=== PATIENT | male | born 1965 | race African-American/Black ===

== ENCOUNTER → 2018-01-22 12:56 | Outpatient (CLI) | payer MEDICAID ==
[2014-09-09 13:19] VITALS: BMI 26.2
[~2018-01-22 12:56] MED LIST: ALEVE220 MG PO; BETAPACE 80 MG80 MG PO; CARDIZEM CD180 MG PO; CELEXA20 MG PO; FERROUS SULFAT325 MG PO; HYDROCHLOROTHIA25 MG PO; K-DUR20 MEQ PO; LISINOPRIL-HCTZ1 T11 PO; NEURONTIN600 MG PO; PRILOSEC20 MG PO; TEGRETOL200 MG PO; TYLENOL W/CODEI1 TAB PO; XARELTO15 MG PO; ZOFRAN4 MG PO
== END | disposition home or self-care (01) ==
LOC: D.MRI 12:56
DX: M25.561 Pain in right knee (principal)

== ENCOUNTER 2018-03-14 14:29 | Inpatient (IN) | payer MEDICAID ==
[~2018-03-14] VITALS: Ht 188 cm; Wt 92.1 kg
--- NOTE | ~2018-03-14 | EC ---
PATIENT:BILL MCKAY DATE OF SERVICE: 03/14/18 SEX: M MEDICAL RECORD: [id number] DATE OF : 63 LOCATION:D.M2 D.211 AGE OF PATIENT: 52 ADMISSION DATE: 03/15/18 REFERRING PHYSICIAN: INTERPRETING PHYSICIAN: JARROD KEMP MD ECHOCARDIOGRAM REPORT ECHO CHARGES 4 ECHO COMPLETE Date: 03/15 CLINICAL DIAGNOSIS: TACHYARRHYTHMIA ECHOCARDIOGRAPHIC MEASUREMENTS (adult normal given) AC root (d.<3.7cm) 3.8 cm LV Septum d (<1.2 cm> 1.2 cm Valve Excursion 2.3 cm LV Septum (systole) 1.4 cm Left Atria (s.<4.0cm> 4.1 cm LVPW d(<1.2cm) 1.4 cm RV (d.<2.3cm) 3.7 cm LVPW (sytole) 1.5 cm LV diastole(<5.6CM) 4.3 cm MV E-F(>70mm/sec) cm LV systole 3.3 cm LVOT Diameter 2.0 cm MV exc.(>10mm) 1.8 cm Est.ejection fraction (50-75%) % DOPPLER: LVIT cm/sec A 54.0 cm/sec E 108 cm/sec LA cm/sec RVSP 34 mmHg LVOT 99 cm/sec AOP1/2T m/s Asc. Ao 143 cm/sec RVOT 64 cm/sec RA cm/sec PA 117 cm/sec AV Gradient Peak 8.19 mmHg AV Mean 4.34 mmHg AV Area 2.3 cm MV Gradient Peak 6.81 mmHg MV Mean 2.97 mmHg MV Area cm COMMENTS: Hand Sprayer: 2 CATHY ALM [employer] Solar [employer] Designer: 1 Dr. Kemp TAPE# PACS Pericardial Effusion N DATE OF SERVICE: Echocardiogram FINDINGS: 1. Left ventricular chamber size is within normal limits. Left ventricular systolic function is normal. Overall ejection fraction estimated at 60%. 2. Left atrium is enlarged at 4.1 cm. Right atrium and right ventricular sizes are as well mildly dilated. 3. Valvular structures have normal structure and motion. ECHOCARDIOGRAM REPORT [id number] BILL MCKAY 4. Doppler interrogation reveals fdis-lz-salybusc mitral regurgitation, samh-ie-fnhfvrqw tricuspid regurgitation, no other valvular insufficiency or stenosis. Pulmonary systolic pressure is estimated at 34 mmHg. 5. No evidence of pericardial effusion or left ventricular thrombus. TRANSINT:[id number] Voice Confirmation ID: [id number] DOCUMENT ID: [id number] JARROD KEMP MD at 0847 CC: [id number] DICTATION DATE: 03/15/18 1246 BARKER PEELER: 03/15/18 1354 ADM IN [facility] [address] [place] [address]
--- NOTE | ~2018-03-14 | CN ---
PATIENT NAME:BILL MCKAY MEDICAL RECORD: [id number] : 63 LOCATION:DJuan D.2119 ADMIT DATE: 03/15/18 ACCOUNT: [id number] CONSULTING PHYSICIAN: ETHEL SHETH MD REFERRING PHYSICIAN: KENNY LOPZE MD DATE OF CONSULTATION: 03/16/2018 HISTORY OF PRESENT ILLNESS: A 52-year-old gentleman with no known cardiovascular history, was actually admitted ____ knee replacement, found to have atrial flutter with a 2:1 block initially, currently in variable block, rate is controlled. He is asymptomatic from this standpoint. Started today on anticoagulation. Difficult to get a discussion concerning effort tolerance given the severe neuropathy, underlying knee issues. We are asked to see her concerning her cardiovascular status. PAST MEDICAL HISTORY: Otherwise includes, 1. History of peripheral neuropathy. 2. Osteoarthritis. 3. Hypertension. MEDICATIONS: Include omeprazole 40 b.i.d., Naprosyn 200 q.12, Neurontin 600 mg t.i.d., lisinopril 20/12.5 every day. ALLERGIES: FISH PRODUCTS. SOCIAL HISTORY: Drinks at least 3 quarts of beer a day. Smokes a little bit less than a pack a day. He does take care of all of his ADLs. No exercise program. REVIEW OF SYSTEMS: The patient reports easy bruising but reports no swollen glands. The patient reports no fever, no night sweats, no significant weight gain, no significant weight loss. No significant exercise tolerance. The patient reports no dry eyes, no irritation, no vision change. Patient reports no difficulty hearing and no ear pain. Patient reports no frequent nose bleeds or nose and sinus problems. Patient reports on arm pain on exertion. No shortness of breath while lying down. No history of heart murmur. Patient reports no cough, no wheezing or coughing up blood. Patient reports no abdominal pain, no vomiting. Normal appetite. No diarrhea and not vomiting blood. No nausea and no constipation. Patient reports no incontinence. No difficulty urinating. No hematuria. No increased frequency. Patient reports no muscle aches. No weakness, no arthralgias, no back pain. No swelling of the extremities. Patient reports no abnormal mole, no jaundice, no rashes. Reports no loss of consciousness. No weakness and no numbness. No seizures, dizziness, or headaches. The patient reports no depression, no sleep disturbance, feeling safe in a relationship and no alcohol abuse. Patient reports on fatigue. Reports no runny nose or sinus pressure. No itching, no hives, and no frequent sneezing. PHYSICAL EXAMINATION: GENERAL: Pleasant gentleman in no acute distress. VITAL SIGNS: Blood pressure 143/73, pulse 81 and regular. HEENT: Normocephalic, atraumatic. NECK: No bruits noted. HEART: Irregular, rate controlled, II/ systolic ejection murmur. LUNGS: Good air excursion. CONSULT REPORT [id number] BILL MCKAY ABDOMEN: Soft, nontender. EXTREMITIES: Pulses 2+. There is no edema. IMPRESSION: Atrial flutter, unknown duration. We will switch IV to p.o. Cardizem. Add sotalol ____ atrial stabilization. Agree with Xarelto as you are doing. Might consider cardioversion in 3-4 weeks. She should be ready for surgery once tolerating p.o. medications in 3-4 weeks. TRANSINT:[id number] Voice Confirmation ID: [id number] DOCUMENT ID: [id number] ETHEL SHETH MD at 0826 CC: [id number] DICTATION DATE: 03/16/18 1026 MAIL RIDER: 03/16/18 1343 DIS IN 03/17/18 [facility] [address] [place] [address]
[~2018-03-14 14:29] MED LIST changes: -BETAPACE 80 MG80 MG PO; -CARDIZEM CD180 MG PO; -K-DUR20 MEQ PO; -XARELTO15 MG PO
[2018-03-14 16:19] LABS: BASOPHILS 0.3 % (0-2); HEMATOCRIT 35.3 % (42.0-54.0); HEMOGLOBIN 12.7 g/dL (13.5-17.5); IMMATURE GRANULOCYTES 0.2 % (0-5); LYMPHOCYTES 23.7 % (15-50); MCH 38.8 pg (26.0-34.0); MEAN PLATELET VOLUME 10.1 fL (7.4-10.4); MONOCYTES 12.5 % (2-11); NEUTROPHILS 62.3 % (40-80); PLATELET COUNT 125 10x3/uL (130-400); RBC 3.27 10x6/uL (4.20-6.10); RDW 14.9 % (11.5-14.5)
[2018-03-14 16:34] LABS: APTT 28.7 SECONDS (22.8-39.4); INR 1.02 (0.85-1.17)
[2018-03-14 16:35] LABS: D-DIMER-QUANTITATIVE 0.69 ug/mLFEU (0.20-0.54)
[2018-03-14 16:44] LABS: ALBUMIN 4.1 g/dL (3.4-5.0); ALKALINE PHOSPHATASE 165 U/L (46-116); ALT (SGPT) 135 U/L (10-68); BILIRUBIN - TOTAL 2.09 mg/dL (0.2-1.3); CALC OSMOLALITY 275 mosm/kg (275-300); CARBON DIOXIDE 25.7 mmol/L (21.0-32.0); CHLORIDE - SERUM 102 mmol/L (98-107); CREATININE - SERUM 1.2 mg/dL (0.6-1.3); GLUCOSE 79 mg/dL (74-106); POTASSIUM - SERUM 5.2 mmol/L (3.5-5.1); PROTEIN - SERUM 8.5 g/dL (6.4-8.2); SODIUM 139 mmol/L (136-145); UREA NITROGEN 9 mg/dL (7-18); eGFR NON AFRICAN AMERICAN 67 mL/min (90-120)
[2018-03-14 17:06] LABS: CKMB 1.5 U/L (0.0-3.6); CREATINE KINASE 206 UL (21-232)
[2018-03-14 17:07] LABS: TROPONIN-I < 0.017 ng/mL (0.000-0.060)
[2018-03-14 17:46] LABS: APPEARANCE CLEAR (CLEAR); BILIRUBIN NEGATIVE (NEGATIVE); COLOR DK YELLOW (YELLOW); GLUCOSE NEGATIVE (NEGATIVE); KETONE NEGATIVE (NEGATIVE); NITRITE NEGATIVE (NEGATIVE); PROTEIN TRACE mg/dL (NEGATIVE); SPECIFIC GRAVITY 1.015 (1.005-1.020); UROBILINOGEN NORMAL (NORMAL)
[2018-03-14 17:53] LABS: UDS - AMPHET NEGATIVE QUAL (NEGATIVE); UDS - BARB NEGATIVE QUAL (NEGATIVE); UDS - BENZO NEGATIVE QUAL (NEGATIVE); UDS - COCAINE NEGATIVE QUAL (NEGATIVE); UDS - OPIATE NEGATIVE QUAL (NEGATIVE); UDS - PCP NEGATIVE QUAL (NEGATIVE); UDS - THC NEGATIVE QUAL (NEGATIVE)
[2018-03-14 19:49] LABS: CKMB 1.3 U/L (0.0-3.6); CREATINE KINASE 169 UL (21-232); TROPONIN-I < 0.017 ng/mL (0.000-0.060)
[2018-03-14] MEDS ORDERED: K-DUR20 MEQ PO (22:47)
[2018-03-14 23:13] VITALS: BP 139/87; Ht 188 cm; Wt 92.1 kg
[2018-03-15 00:51] VITALS: BP 133/81
[2018-03-15 01:40] LABS: CKMB 1.3 U/L (0.0-3.6); CREATINE KINASE 159 UL (21-232); TROPONIN-I < 0.017 ng/mL (0.000-0.060)
[2018-03-15 04:53] VITALS: BP 92/59; BP 92/89
[2018-03-15 06:22] LABS: BASOPHILS 0.6 % (0-2); EOSINOPHILS 2.1 % (0-7); HEMATOCRIT 30.9 % (42.0-54.0); IMMATURE GRANULOCYTES 0.2 % (0-5); LYMPHOCYTES 29.3 % (15-50); MCH 38.3 pg (26.0-34.0); MCHC 35.6 g/dL (31.0-37.0); MCV 107.7 fL (80.0-100.0); MEAN PLATELET VOLUME 9.5 fL (7.4-10.4); NEUTROPHILS 55.8 % (40-80); PLATELET COUNT 107 10x3/uL (130-400); RBC 2.87 10x6/uL (4.20-6.10); RDW 14.8 % (11.5-14.5); WBC 4.8 10x3/uL (4.8-10.8)
[2018-03-15 06:56] LABS: ALBUMIN 3.2 g/dL (3.4-5.0); ALKALINE PHOSPHATASE 122 U/L (46-116); BILIRUBIN - TOTAL 2.09 mg/dL (0.2-1.3); CALC OSMOLALITY 276 mosm/kg (275-300); CALCIUM 8.8 mg/dL (8.5-10.1); CARBON DIOXIDE 25.9 mmol/L (21.0-32.0); CHLORIDE - SERUM 103 mmol/L (98-107); CKMB 0.6 U/L (0.0-3.6); CREATINE KINASE 144 UL (21-232); CREATININE - SERUM 1.1 mg/dL (0.6-1.3); GLUCOSE 104 mg/dL (74-106); PROTEIN - SERUM 6.8 g/dL (6.4-8.2); SODIUM 139 mmol/L (136-145); T4 THYROXIN - FREE 1.04 ng/dL (0.76-1.46); THYROID STIMULATING HORMONE 2.62 uIU/mL (0.36-3.74); UREA NITROGEN 11 mg/dL (7-18); eGFR NON AFRICAN AMERICAN 74 mL/min (90-120)
[2018-03-15 07:01] LABS: ALT (SGPT) 92 U/L (10-68); POTASSIUM - SERUM 4.1 mmol/L (3.5-5.1); TROPONIN-I < 0.017 ng/mL (0.000-0.060)
[2018-03-15 08:50] VITALS: BP 145/85
[2018-03-15 12:03] VITALS: BP 110/65
[2018-03-15 16:56] VITALS: BP 118/85
[2018-03-15 20:17] VITALS: BP 125/85
[2018-03-16 00:57] VITALS: BP 125/75
[2018-03-16 04:28] VITALS: BP 113/77
[2018-03-16 09:01] VITALS: BP 142/73
[2018-03-16 09:05] LABS: T4 THYROXIN - FREE 0.93 ng/dL (0.76-1.46); THYROID STIMULATING HORMONE 2.95 uIU/mL (0.36-3.74)
[2018-03-16 13:30] VITALS: BP 115/76
[2018-03-16 20:33] VITALS: BP 120/87
[2018-03-17 01:35] VITALS: BP 134/87
[2018-03-17 05:50] VITALS: BP 111/66
[2018-03-17 08:38] VITALS: BP 130/70
[2018-03-17 11:21] VITALS: BP 156/96
[2018-03-17] MEDS ORDERED: BETAPACE 80 MG80 MG PO (11:57)
[2018-03-17] MEDS ORDERED: CARDIZEM CD180 MG PO (11:57)
[2018-03-17] MEDS ORDERED: XARELTO15 MG PO (11:57)
== END 2018-03-17 13:05 | disposition home or self-care (01) | DRG 310 ==
LOC: D.ER 14:29 → D.M2 18:32 → D.EDHOLD 18:32 → OBSVTIME 18:32 → D.M2 18:43
PROVIDERS: Family Medicine
DX: I48.92 Unspecified atrial flutter (principal); R00.0 Tachycardia, unspecified; I48.2 Chronic atrial fibrillation; Z79.01 Long term (current) use of anticoagulants; M19.90 Unspecified osteoarthritis, unspecified site; I10 Essential (primary) hypertension; F10.20 Alcohol dependence, uncomplicated; I34.0 Nonrheumatic mitral (valve) insufficiency; Z72.0 Tobacco use

== ENCOUNTER 2018-05-31 06:45 | Day surgery (SDC) | payer MEDICAID ==
[2018-05-30 14:55] LABS: HEMOGLOBIN 13.5 g/dL (13.5-17.5); MCH 37.8 pg (26.0-34.0); MCHC 36.5 g/dL (31.0-37.0); MCV 103.6 fL (80.0-100.0); MEAN PLATELET VOLUME 10.1 fL (7.4-10.4); RBC 3.57 10x6/uL (4.20-6.10); RDW 13.6 % (11.5-14.5); WBC 4.7 10x3/uL (4.8-10.8)
[2018-05-30 14:57] LABS: PLATELET COUNT 80 10x3/uL (130-400)
[2018-05-30 15:14] LABS: CALC OSMOLALITY 276 mosm/kg (275-300); CALCIUM 8.9 mg/dL (8.5-10.1); CARBON DIOXIDE 21.6 mmol/L (21.0-32.0); CHLORIDE - SERUM 104 mmol/L (98-107); GLUCOSE 108 mg/dL (74-106); POTASSIUM - SERUM 3.6 mmol/L (3.5-5.1); SODIUM 140 mmol/L (136-145); UREA NITROGEN 5 mg/dL (7-18); eGFR NON AFRICAN AMERICAN 83 mL/min (90-120)
[2018-05-30 15:28] LABS: PLATELET ESTIMATE DECREASED
[~2018-05-31] VITALS: Ht 188 cm; Wt 88.9 kg
--- NOTE | ~2018-05-31 | OP ---
PATIENT NAME: BILL MCKAY MEDICAL RECORD: [id number] :63 LOCATION:ANA ROSA ADMISSION DATE: SURGEON: LOIDA SAXENA MD DATE OF OPERATION: 05/31/2018 PREOPERATIVE DIAGNOSIS: Patellofemoral syndrome. POSTOPERATIVE DIAGNOSIS: Patellofemoral syndrome. PROCEDURE: Arthroscopic lateral release of the right knee. SURGEON: Loida Saxena MD ANESTHESIA: General. INTRAOPERATIVE COMPLICATIONS: None. 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 DESCRIPTION OF PROCEDURE IN DETAIL: After obtaining the appropriate preoperative orthopedic surgery consent as well as anesthetic consultation, evaluation and clearance, the patient was brought to the operating room and placed on the operating table in supine position. After general laryngeal mask airway was administered, tourniquet was placed on the proximal aspect right lower extremity. Right lower extremity was then prepped and draped in routine sterile fashion. The leg was elevated and exsanguinated, tourniquet inflated to 250 mmHg. Routine inferolateral portal was established followed by superomedial and inferomedial portal. Diagnostic arthroscopy showed the patient to have the chondromalacia as described above, worrisome is the trochlear chondromalacia as well as the lateral facet chondromalacia. The arthroscopy was then established from the medial portal for direct visualization of the lateral retinaculum. Lateral retinaculum was then released from the inferior aspect of the vastus lateralis to the inferolateral portal. Small skin breach was encountered. Having completed the complete lateral release, all portals were closed in routine interrupted fashion using 4-0 Prolene with the exception of the small skin bridge laterally. This was closed with a ntwtww-yw-gnwwd deep 4-0 Prolene after a #1 Vicryl closure. Knee was insufflated with 30 cc of 0.25% Marcaine with epinephrine and 80 mg of Depo-Medrol. Arthroscopy portals were closed in routine interrupted fashion. Sterile dressings were applied. The patient was awakened and taken to the recovery room in stable condition. All final needle and sponge counts were correct. TRANSINT:[id number] Voice Confirmation ID: [id number] DOCUMENT ID: [id number] LOIDA SAXENA MD at 0939 CC: [id number] DICTATION DATE: 06/06/18 0823 SENIOR WEB DESIGNER: 06/06/18 1052 [facility] [place] 05/31/18 [id number] [place] [address]
[~2018-05-31 06:45] MED LIST changes: +BETAPACE 80 MG80 MG PO; +CARDIZEM CD180 MG PO; +K-DUR20 MEQ PO; +XARELTO15 MG PO
[2018-05-31] MEDS ORDERED: CARTIA XT180 MG PO (07:05)
[2018-05-31 07:20] VITALS: BP 130/77; Ht 188 cm; Wt 88.9 kg
[2018-05-31] MEDS ORDERED: HYDROCODONE-APA1 TAB PO (08:36)
== END 2018-05-31 11:00 | disposition home or self-care (01) ==
LOC: D.OPS 06:45 → D.PAN 08:45 → D.OPS 09:45 → D.PAN 09:45 → D.OPS 11:00
PROVIDERS: Anesthesiology
DX: M22.2X1 Patellofemoral disorders, right knee (principal); M94.261 Chondromalacia, right knee; Z01.812 Encounter for preprocedural laboratory examination

== ENCOUNTER → 2018-11-23 13:56 | Outpatient (CLI) | payer OTHER ==
[2018-05-31 07:20] VITALS: BMI 25.2
[~2018-11-23 13:56] MED LIST changes: +CARTIA XT180 MG PO; +HYDROCODONE-APA1 TAB PO
== END | disposition home or self-care (01) ==
LOC: D.RAD 13:56
DX: Z02.71 Encounter for disability determination (principal)

== ENCOUNTER 2019-08-02 22:28 | Emergency (ER) | payer MEDICAID ==
[~2019-08-02] VITALS: Ht 188 cm; Wt 113.4 kg
[2019-08-02 22:29] VITALS: Ht 188 cm; Wt 113.4 kg
[2019-08-02 22:45] LABS: BASOPHILS 0.1 % (0-2); HEMATOCRIT 35.2 % (42.0-54.0); HEMOGLOBIN 12.5 g/dL (13.5-17.5); IMMATURE GRANULOCYTES 0.3 % (0-5); MCH 37.8 pg (26.0-34.0); MCHC 35.5 g/dL (31.0-37.0); MCV 106.3 fL (80.0-100.0); MEAN PLATELET VOLUME 9.9 fL (7.4-10.4); MONOCYTES 7.4 % (2-11); NEUTROPHILS 76.2 % (40-80); RBC 3.31 10x6/uL (4.20-6.10); RDW 13.5 % (11.5-14.5); WBC 14.7 10x3/uL (4.8-10.8)
[2019-08-02 22:51] LABS: PLATELET COUNT 133 10x3/uL (130-400)
[2019-08-02 22:57] LABS: INR 1.04 (0.85-1.17); PROTIME 13.1 SECONDS (11.6-15.0)
[2019-08-02 22:58] LABS: CALC OSMOLALITY 267 mosm/kg (275-300); CALCIUM 8.8 mg/dL (8.5-10.1); CARBON DIOXIDE 25.2 mmol/L (21.0-32.0); CHLORIDE - SERUM 101 mmol/L (98-107); CREATININE - SERUM 1.1 mg/dL (0.6-1.3); GLUCOSE 136 mg/dL (74-106); POTASSIUM - SERUM 3.8 mmol/L (3.5-5.1); SODIUM 134 mmol/L (136-145); UREA NITROGEN 8 mg/dL (7-18); eGFR NON AFRICAN AMERICAN 74 mL/min (90-120)
[2019-08-02 23:23] LABS: ALBUMIN 3.4 g/dL (3.4-5.0); ALKALINE PHOSPHATASE 179 U/L (46-116); ALT (SGPT) 37 U/L (10-68); BILIRUBIN - TOTAL 1.36 mg/dL (0.2-1.3); CKMB 0.3 U/L (0.0-3.6); CREATINE KINASE 36 UL (21-232); PRO BNP 144 pg/mL (0-125); PROTEIN - SERUM 7.7 g/dL (6.4-8.2); TROPONIN-I < 0.017 ng/mL (0.000-0.060)
[2019-08-02] MEDS ORDERED: GUAIFEN-CODEINE10 ML PO (23:42)
[2019-08-02] MEDS ORDERED: AUGMENTIN 875-11 TAB PO (23:42)
[2019-08-02] MEDS ORDERED: FLUTICASONE PRO16 GM NASAL (23:43)
[2019-08-03 01:20] VITALS: BP 135/83
== END 2019-08-03 00:40 | disposition home or self-care (01) ==
LOC: D.ER 22:28
PROVIDERS: Family Medicine
DX: J32.9 Chronic sinusitis, unspecified (principal)

== ENCOUNTER → 2020-04-14 13:20 | Outpatient (CLI) | payer MEDICAID ==
[2019-08-02 22:29] VITALS: BMI 25.2
[~2020-04-14 13:20] MED LIST changes: +AUGMENTIN 875-11 TAB PO; +FLUTICASONE PRO16 GM NASAL; +GUAIFEN-CODEINE10 ML PO
== END | disposition home or self-care (01) ==
LOC: D.US 13:20
PROVIDERS: ATTEND Family Medicine
DX: R22.30 Localized swelling, mass and lump, unspecified upper limb (principal); G44.89 Other headache syndrome

== ENCOUNTER 2020-11-29 11:14 | Inpatient (IN) | payer MEDICAID ==
[~2020-11-29] VITALS: Ht 188 cm; Wt 87.7 kg
--- NOTE | ~2020-11-29 | OP ---
PATIENT NAME: BILL MCKAY MEDICAL RECORD: [id number] :63 LOCATION:D.MS Jeffers2224 ADMISSION DATE:11/29/20 SURGEON: JOSE BEAVERS MD DATE OF OPERATION: 02/19/2021 PREOPERATIVE DIAGNOSES: 1. Acute renal failure, resolved. 2. Hip fracture. 3. Indwelling left IJ HemoSplit catheter. 4. Alcoholic cirrhosis. 5. Alcoholism. POSTOPERATIVE DIAGNOSES: 1. Acute renal failure, resolved. 2. Hip fracture. 3. Indwelling left IJ HemoSplit catheter. 4. Alcoholic cirrhosis. 5. Alcoholism. PROCEDURE: Removal of left IJ HemoSplit catheter. SURGEON: Jose Beavers MD DESCRIPTION OF PROCEDURE: The patient's left neck and chest with the indwelling HemoSplit were prepped and draped in sterile fashion. The 2 Prolene sutures holding it in place were excised. A total of 10 mL of 1% lidocaine plain was infused into the tissues at the exit site of the catheter. After anesthesia was obtained, then gentle tension was applied to the catheter and it easily pulled through the subcutaneous tissues and out of the skin. A dressing was applied with a gauze and a pressure dressing was applied in the left neck. There were no signs of any active bleeding at the conclusion of the case. COMPLICATIONS: None. CONDITION: Stable. ANESTHESIA: Local. BLOOD LOSS: Minimal. Procedure done at the bedside. TRANSINT:[id number] Voice Confirmation ID: [id number] DOCUMENT ID: [id number] JOSE BEAVERS MD CC: [id number] DICTATION DATE: 02/19/21 124 COTTON STOMPER: 02/19/21 1614 DIS IN 02/19/21 [id number] [place] [address]
--- NOTE | 2020-11-29 11:29 | NUR ---
PT ARRIVED VIA EMT. ALERT AND ORIENTED WITH C/O PAIN TO THE RIGHT LEG. MEDICATED IN ROUTE. RLE COOL AND NUMB. PT STATES THIS IS NORMAL FOR HIM D/T NEUROPATHY. IN THE ROOM AT THIS TIME.
[2020-11-29 13:31] LABS: BASOPHILS 0.3 % (0-2); EOSINOPHILS 5.5 % (0-7); HEMATOCRIT 33.5 % (42.0-54.0); HEMOGLOBIN 11.8 g/dL (13.5-17.5); IMMATURE GRANULOCYTES 0.1 % (0-5); LYMPHOCYTE ABS# 2.73 10x3/uL (1.32-3.57); LYMPHOCYTES 39.3 % (15-50); MCH 37.7 pg (26.0-34.0); MCHC 35.2 g/dL (31.0-37.0); MEAN PLATELET VOLUME 9.5 fL (7.4-10.4); MONOCYTES 8.9 % (2-11); NEUTROPHIL ABS# 3.18 10x3/uL (1.78-5.38); NEUTROPHILS 45.9 % (40-80); PLATELET COUNT 104 10x3/uL (130-400); RBC 3.13 10x6/uL (4.20-6.10); RDW 13.5 % (11.5-14.5); WBC 6.9 10x3/uL (4.8-10.8)
[2020-11-29 13:35] LABS: INR 1.29 (0.85-1.17); PROTIME 14.9 SECONDS (11.6-15.0)
[2020-11-29 13:36] LABS: APTT 31.6 SECONDS (22.8-39.4)
[2020-11-29 13:37] LABS: CALC OSMOLALITY 274 mosm/kg (275-300); CALCIUM 8.6 mg/dL (8.5-10.1); CARBON DIOXIDE 24.5 mmol/L (21.0-32.0); CHLORIDE - SERUM 102 mmol/L (98-107); CREATININE - SERUM 0.9 mg/dL (0.6-1.3); GLUCOSE 131 mg/dL (74-106); SODIUM 138 mmol/L (136-145); UREA NITROGEN 4 mg/dL (7-18); eGFR NON AFRICAN AMERICAN > 90 mL/min (90-120)
[2020-11-29 13:42] LABS: ALBUMIN 3.1 g/dL (3.4-5.0); ALKALINE PHOSPHATASE 219 U/L (30-120); ALT (SGPT) 75 U/L (10-68); BILIRUBIN - TOTAL 2.86 mg/dL (0.2-1.3); PROTEIN - SERUM 7.3 g/dL (6.4-8.2)
--- NOTE | 2020-11-29 18:31 | NUR ---
AG STATES HE HAS BACK PAIN AND HIS HIP FEELS FINE NOW
[2020-11-29 18:49] VITALS: BP 110/53
--- NOTE | 2020-11-29 19:30 | NUR ---
PT LYING IN BED AFTER ARRIVING FROM RECOVERY. EDUCATED PT ABOUT SCD'S. PT WEARING THEM NOW. REVIEWED HOME MEDS AND HISTORY. ASSESSMENT COMPLETE PER FLOW-SHEET. RATES PAIN 4/10 RIGHT NOW. PT SITTING UP IN BED EATING SANDWICH. WILL CONTINUE TO MONITOR. CALL LIGHT IN REACH.
[2020-11-29 20:00] VITALS: BP 108/64
[2020-11-29] MEDS ORDERED: PEPCID AC20 MG PO (21:14)
[2020-11-29] MEDS ORDERED: ULTRAM50 MG PO (21:15)
[2020-11-29] MEDS ORDERED: MOBIC7.5 MG PO (21:16)
[2020-11-30] VITALS: BP 105/64
[2020-11-30 02:50] VITALS: BMI 27.9
[2020-11-30 04:00] VITALS: BP 113/62
[2020-11-30 07:13] LABS: BASOPHILS 0.2 % (0-2); HEMATOCRIT 27.4 % (42.0-54.0); IMMATURE GRANULOCYTES 0.2 % (0-5); LYMPHOCYTE ABS# 2.11 10x3/uL (1.32-3.57); LYMPHOCYTES 16.9 % (15-50); MCH 37.2 pg (26.0-34.0); MCHC 33.9 g/dL (31.0-37.0); MEAN PLATELET VOLUME 9.9 fL (7.4-10.4); MONOCYTES 8.4 % (2-11); NEUTROPHIL ABS# 8.99 10x3/uL (1.78-5.38); NEUTROPHILS 72.3 % (40-80); RDW 13.9 % (11.5-14.5)
[2020-11-30 07:43] LABS: WBC 12.5 10x3/uL (4.8-10.8)
[2020-11-30 07:44] LABS: HEMOGLOBIN 9.3 g/dL (13.5-17.5); MCV 109.6 fL (80.0-100.0); PLATELET COUNT 80 10x3/uL (130-400)
[2020-11-30 09:12] VITALS: BP 106/54
[2020-11-30 09:28] LABS: ALBUMIN 2.4 g/dL (3.4-5.0); CALCIUM 7.2 mg/dL (8.5-10.1); CARBON DIOXIDE 20.8 mmol/L (21.0-32.0)
[2020-11-30 09:30] LABS: ANION GAP 16.9 mmol/L (8-16); CREATININE - SERUM 2.6 mg/dL (0.6-1.3); POTASSIUM - SERUM 5.7 mmol/L (3.5-5.1)
[2020-11-30 09:31] LABS: PROTEIN - SERUM 5.4 g/dL (6.4-8.2)
--- NOTE | 2020-11-30 10:52 | NUR ---
PIV LEAKING AT SITE, DCD AND 22G TO RFA INSERTED
[2020-11-30 12:36] VITALS: BP 109/59
[2020-11-30 14:44] LABS: PLATELET ESTIMATE DECREASED
[2020-11-30 14:45] LABS: HYPOCHROMASIA OCC; ROULEAUX OCC
[2020-11-30 16:40] LABS: BACTERIA MODERATE HPF (NONE SEEN); BILIRUBIN 1+ (NEGATIVE); KETONE NEGATIVE (NEGATIVE); NITRITE NEGATIVE (NEGATIVE); SQUAMOUS EPITHELIAL OCC HPF (0-4); UROBILINOGEN 4 mg/dL (< 2); WHITE CELLS - URINE 0-5 HPF (0-1)
--- NOTE | 2020-11-30 17:03 | NUR ---
UOP 100, PAGED DR ANTUNEZ, ORDERS TO CHANGE IV FLUIDS
[2020-11-30 17:13] VITALS: BP 115/54
--- NOTE | 2020-11-30 19:00 | NUR ---
BEDSIDE REPORT RECEIVED AND CARE OF PT ASSUMED. PT LYING IN SUPINE POSITION WITH EYES CLOSED AND EASY RESPIRATIONS. LEFT PICC LINE SALINE LOCKED. BED ALARM IN USE. CHONG CATHETER DRAINING TO GRAVITY WITH YELLOW URINE IN COLLECTION BAG. WILL MONITOR FOR NEEDS.
[2020-11-30 21:32] VITALS: BP 107/54
--- NOTE | 2020-11-30 21:36 | NUR ---
HS MEDICATIONS GIVEN TO INCLUE NORCO PO AND ZOFRAN IVP PER PT REQUEST FOR PAIN AND NAUSEA. WILL CONTINUE TO MONITOR FOR NEEDS.
[2020-12-01 00:23] VITALS: BP 98/52
[2020-12-01 04:23] VITALS: BP 97/52
[2020-12-01 07:59] LABS: ALBUMIN 2.1 g/dL (3.4-5.0); ALKALINE PHOSPHATASE 136 U/L (30-120); AMYLASE - SERUM 126 U/L (25-115); BILIRUBIN - DIRECT 3.69 mg/dL (0.00-0.30); BILIRUBIN - INDIRECT 0.61 mg/dL (0.00-1.00); CARBON DIOXIDE 25.3 mmol/L (21.0-32.0); CHLORIDE - SERUM 103 mmol/L (98-107); CREATINE KINASE 780 UL (21-232); GLUCOSE 159 mg/dL (74-106); SODIUM 137 mmol/L (136-145); URIC ACID 10.9 mg/dL (2.6-7.2)
[2020-12-01 08:01] LABS: ALT (SGPT) 205 U/L (10-68); CALC OSMOLALITY 278 mosm/kg (275-300); CKMB 0.7 U/L (0.0-3.6); CREATININE - SERUM 4.5 mg/dL (0.6-1.3); LIPASE 1769 U/L (73-393); POTASSIUM - SERUM 4.5 mmol/L (3.5-5.1); UREA NITROGEN 18 mg/dL (7-18); eGFR NON AFRICAN AMERICAN 14 mL/min (90-120)
--- NOTE | 2020-12-01 08:31 | NUR ---
REPORTS PAIN IN HIP 3/10, BUT REQUESTS 2 NORCOS S/T CHRONIC BACK PAIN IN ABSENCE OF MELOXICAM.
[2020-12-01 08:32] VITALS: BP 97/53
--- NOTE | 2020-12-01 11:43 | MORECARE ---
CASE MANAGEMENT DISCHARGE SUMMARY PATIENT: BILL MCKAY UNIT: [id number] ADM DATE: 11/29/20 AGE: 55 : 63 SEX: M ROOM/BED: D.2237 AUTHOR: ZARA OLSEN PHYSICIAN: REFERRING PHYSICIAN: KENNY LOPEZ MD DATE OF SERVICE: 12/01/20 Discharge Plan Patient Name: BILL MCKAY Facility: [facility]:[place] : 1965 Planned Disposition: Anticipated Discharge Date: Discharge Date: Expected LOS: Initial Reviewer: [email or web address] Initial Review Date: 11/29/2020 Generated: 12/01/20 12:42 pm External Providers External Provider: [employer] [facility] Contact Date: Service Request Date: Service Type: Resolution: Reviewer: Comments: Patient Name: BILL MCKAY Page [phone] at 1143 All edits/amendments must be made on the electronic document DICTATION DATE: 12/01/20 1142 LOCKS TENDER: PAULINE 12/01/20 1142 RPT#: [id number] DC DATE: STATUS: ADM IN [facility] [address] [place] [address] END OF REPORT
[2020-12-01 12:46] VITALS: BP 95/62
--- NOTE | 2020-12-01 12:46 | MORECARE ---
CASE MANAGEMENT DISCHARGE SUMMARY PATIENT: BILL MCKAY UNIT: [id number] ADM DATE: 11/29/20 AGE: 55 : 63 SEX: M ROOM/BED: D.2237 AUTHOR: ZARA OLSEN PHYSICIAN: REFERRING PHYSICIAN: KENNY LOPEZ MD DATE OF SERVICE: 12/01/20 Discharge Plan Patient Name: BILL MCKAY Facility: [facility]:[place] : 1965 Planned Disposition: Anticipated Discharge Date: Discharge Date: Expected LOS: Initial Reviewer: [email or web address] Initial Review Date: 11/29/2020 Generated: 12/01/20 1:45 pm External Providers External Provider: [employer] [facility] Contact Date: Service Request Date: Service Type: Resolution: Reviewer: Comments: Last DP export: 12/01/20 10:43 a Patient Name: BILL MCKAY Page [phone] at 1246 All edits/amendments must be made on the electronic document DICTATION DATE: 12/01/20 1246 SWITCH TECHNICIAN: PAULINE 12/01/20 1246 RPT#: [id number] DC DATE: STATUS: ADM IN [facility] [address] [place] [address] END OF REPORT
--- NOTE | 2020-12-01 14:03 | NUR ---
REPORTED RESULTS OF CT TO DR. DOUGLAS TO INCLUDE POSS ILEUS AND POSS PNA. HE IS ASYMPTOMATIC FOR PNA, SO NO ABX ORDERED. NO N/V AT THIS TIME ON CLD. ORDERS NPO AND NGT LIWS FOR N/V.
--- NOTE | 2020-12-01 16:40 | NUR ---
UOP=50 CC DARK URINE. REPORTED TO DR. ANTUNEZ. ORDERS RECEIVED.
[2020-12-01 17:05] VITALS: BP 111/58
[2020-12-01 20:00] VITALS: BP 105/53
[2020-12-02] VITALS: BP 98/51
--- NOTE | 2020-12-02 03:26 | NUR ---
ASSESSED AT THE BEGINNING OF THE SHIFT. PT IS ALERT AND ORIENETED, ABLE TO VERBALIZE NEEDS. HE REMAINS DISTENDED BUT HAS NOT VOICED ANY NAUSEA OR VOMITED. HE DID HAVE A LARGE LOOSE STOOL AND IN THE PROCESS PULLED OUT HIS IV. HE WAS CLEANED UP AND A NEW IV WAS STARTED IN THE RIGHT HAND WITH A 22 G. THE DRESSINGS TO HIS RIGHT FEMUR ARE CLEAN DRY AND INTACT. HIS SCD'S REMAIN IN PLACE AND WERE EXCHANGED WHEN HE WAS INCONT. ABOUT MIDNIGHT HIS O2 SAT WAS STAYING LOW AND O2 AT 2 LITERS WAS PLACED ON.
[2020-12-02 04:00] VITALS: BP 94/53
[2020-12-02 06:51] LABS: ALBUMIN 2.1 g/dL (3.4-5.0); ALKALINE PHOSPHATASE 139 U/L (30-120); BILIRUBIN - DIRECT 4.43 mg/dL (0.00-0.30); BILIRUBIN - INDIRECT 0.65 mg/dL (0.00-1.00); BILIRUBIN - TOTAL 5.08 mg/dL (0.2-1.3); CHLORIDE - SERUM 100 mmol/L (98-107); CREATINE KINASE 799 UL (21-232); GLUCOSE 149 mg/dL (74-106); PHOSPHOROUS 4.9 mg/dL (2.5-4.9); POTASSIUM - SERUM 4.6 mmol/L (3.5-5.1); PROTEIN - SERUM 5.2 g/dL (6.4-8.2); SODIUM 136 mmol/L (136-145)
[2020-12-02 07:11] LABS: ALT (SGPT) 138 U/L (10-68); AMYLASE - SERUM 87 U/L (25-115); CALC OSMOLALITY 279 mosm/kg (275-300); CREATININE - SERUM 6.2 mg/dL (0.6-1.3); LIPASE 700 U/L (73-393); UREA NITROGEN 26 mg/dL (7-18); eGFR NON AFRICAN AMERICAN 10 mL/min (90-120)
[2020-12-02 07:13] LABS: CALCIUM 6.9 mg/dL (8.5-10.1)
[2020-12-02 07:35] LABS: CKMB 0.5 U/L (0.0-3.6)
--- NOTE | 2020-12-02 08:00 | NUR ---
ASSESSMENT PER FLOW SHEET. PATIENT IS WITHOUT DISTRESS.MONITOR FOR NEEDS.CALL LIGHT IN REACH
--- NOTE | 2020-12-02 08:29 | NUR ---
LAB CALL WITH CRITICAL HGB OF 7.2, DOWN FROM 9.3 ON PREVIOUS DRAW, INFORMATION RELAYED TO JOHN COLIN
[2020-12-02 08:34] VITALS: BP 112/57
[2020-12-02 09:06] LABS: BASOPHILS 0.2 % (0-2); HEMATOCRIT 20.3 % (42.0-54.0); IMMATURE GRANULOCYTES 0.4 % (0-5); LYMPHOCYTE ABS# 2.51 10x3/uL (1.32-3.57); MCH 37.4 pg (26.0-34.0); MCHC 34.5 g/dL (31.0-37.0); MCV 108.6 fL (80.0-100.0); MEAN PLATELET VOLUME 10.2 fL (7.4-10.4); MONOCYTES 9.3 % (2-11); NEUTROPHIL ABS# 10.52 10x3/uL (1.78-5.38); NEUTROPHILS 71.1 % (40-80); PLATELET COUNT 77 10x3/uL (130-400); RDW 14.7 % (11.5-14.5); WBC 14.8 10x3/uL (4.8-10.8)
[2020-12-02 09:25] LABS: RBC 1.87 10x6/uL (4.20-6.10)
[2020-12-02 12:57] VITALS: BP 100/55
--- NOTE | 2020-12-02 13:27 | MORECARE ---
CASE MANAGEMENT DISCHARGE SUMMARY PATIENT: BILL MCKAY UNIT: [id number] ADM DATE: 11/29/20 AGE: 55 : 63 SEX: M ROOM/BED: D.2237 AUTHOR: ZARA OLSEN PHYSICIAN: REFERRING PHYSICIAN: KENNY LOPEZ MD DATE OF SERVICE: 12/02/20 Discharge Plan Patient Name: BILL MCKAY Facility: [facility]:[place] : 1965 Planned Disposition: Anticipated Discharge Date: Discharge Date: Expected LOS: Initial Reviewer: [email or web address] Initial Review Date: 11/29/2020 Generated: 12/02/20 2:26 pm Comments DCP- Discharge Planning Updated by [email or web address]: Flora Valdes on 12/02/20 12:[address] Patient Name: BILL MCKAY Admission Status: ER Accout number: [id number] Admission Date: 11-29-2020 : 1965 Admission Diagnosis:DISPLACED SUBTROCHANTERIC FRACTURE OF RIGHT FEMUR, INIT Attending: KENNY LOPEZ Current LOS: 3 Anticipated DC Date: Planned Disposition: Primary Insurance: MEDICAID [place] Discharge Planning Comments: I HAVE CONTACTED INPATIENT REHAB AT [facility] TO SEE IF THEY WOULD TAKE THIS PATIENT WITH MEDICAID. WAITING CALL BACK. An/Syq 13 Nav/C2 Operator: Flora Valdes Last DP export: 12/01/20 11:46 a Patient Name: BILL MCKAY Page [phone] at 1327 All edits/amendments must be made on the electronic document DICTATION DATE: 12/02/20 1327 OPERATIONS LEADER: PAULINE 12/02/20 1327 RPT#: [id number] DC DATE: STATUS: ADM IN [place] [place] [address] END OF REPORT
--- NOTE | 2020-12-02 15:41 | NUR ---
SLEEPING WITHOUT NEEDS. DOOR OPEN TO MONITOR
[2020-12-02 16:38] VITALS: BP 116/50
--- NOTE | 2020-12-02 19:57 | NUR ---
blood verified and initiated by rn. 15min assessment: vs stable, no s/sx of distress, ctm.
[2020-12-02 20:00] VITALS: BP 113/52
[2020-12-03] VITALS: BP 97/51
[2020-12-03 04:00] VITALS: BP 107/40
--- NOTE | 2020-12-03 04:23 | NUR ---
I have reviewed this patient and I concur with the Shift Assessment completed by the Licensed Practical Nurse today this shift.
[2020-12-03 09:33] VITALS: BP 99/51
--- NOTE | 2020-12-03 10:41 | NUR ---
MEDS ORDERED PER MAR FOR NAUSEA. APRO 200 CC OF LIGHT YELLOW COLORED EMESIS. PATIENT CLEANED AND SHEET PROVIDED.
[2020-12-03 11:08] LABS: LYMPHOCYTE ABS# 1.74 10x3/uL (1.32-3.57); MCHC 35.2 g/dL (31.0-37.0); MEAN PLATELET VOLUME 10.4 fL (7.4-10.4); NEUTROPHIL ABS# 13.92 10x3/uL (1.78-5.38); PLATELET COUNT 91 10x3/uL (130-400); WBC 18.3 10x3/uL (4.8-10.8)
[2020-12-03 11:09] LABS: AMYLASE - SERUM 67 U/L (25-115); CALC OSMOLALITY 279 mosm/kg (275-300); CARBON DIOXIDE 28.3 mmol/L (21.0-32.0); CHLORIDE - SERUM 97 mmol/L (98-107); CREATINE KINASE 1158 UL (21-232); CREATININE - SERUM 7.8 mg/dL (0.6-1.3); GLUCOSE 167 mg/dL (74-106); LIPASE 308 U/L (73-393); PHOSPHOROUS 5.1 mg/dL (2.5-4.9); POTASSIUM - SERUM 4.2 mmol/L (3.5-5.1); SODIUM 134 mmol/L (136-145); UREA NITROGEN 36 mg/dL (7-18); eGFR NON AFRICAN AMERICAN 8 mL/min (90-120)
[2020-12-03 11:10] LABS: CKMB 0.1 U/L (0.0-3.6)
[2020-12-03 11:11] LABS: HEMATOCRIT 28.4 % (42.0-54.0); MCV 99.3 fL (80.0-100.0); RBC 2.86 10x6/uL (4.20-6.10)
[2020-12-03 12:11] VITALS: Ht 188 cm; Wt 87.7 kg
[2020-12-03 13:00] VITALS: BP 99/57
[2020-12-03 13:16] LABS: EOSINOPHILS 1 % (0-7); LYMPHOCYTES 11 % (15-50); MONOCYTES 18 % (2-11); NEUTROPHILS 58 % (40-80); PLATELET ESTIMATE DECREASED
[2020-12-03 13:17] LABS: ANISOCYTOSIS OCC; ROULEAUX OCC
--- NOTE | 2020-12-03 16:00 | NUR ---
MEDS ORDERED PER MAR FOR NAUSEA. PATIENT HAS MOD AMOUNTS OF YELLOW COLORED EMESIS.
[2020-12-03 16:59] VITALS: BP 87/64
--- NOTE | 2020-12-03 17:00 | NUR ---
ANXIOUS THIS AFTERNOON. WANTS HIS SHIRT AND WANTS TO GET OUT OF BED.STATES HE HAS TO GO AND GET HIS FRIENDS. HE IS ALSO SHAKEY. HAS HAD NAUSEA THROUGHOUT DAY INT.MEDS ORDERED PER DEC.
[2020-12-03 22:02] VITALS: BP 104/84
--- NOTE | 2020-12-04 00:06 | NUR ---
PT WAS SLEEPING UPON ASSESSMENT. EVENTUALLY PT WOKE UP, SLIGHTLY CONFUSED BUT CALM. NURSE ADMINISTERED MEDS BUT PT IMMEDIATELY THREW UP. PT WAS GIVEN A BATH AND GIVEN ZOFRAN TO HELP WITH NAUSEA. PT NOW SLEEPING COMFORTABLY IN BED. NO PAIN NOR DISTRESS NOTED AT THIS TIME. FALL PRECAUTIONS IN PLACE.
[2020-12-04 00:55] VITALS: BP 101/70
[2020-12-04 04:50] VITALS: BP 114/70
[2020-12-04 06:53] LABS: BASOPHILS 0.3 % (0-2); EOSINOPHILS 0.5 % (0-7); HEMATOCRIT 32.5 % (42.0-54.0); HEMOGLOBIN 11.4 g/dL (13.5-17.5); IMMATURE GRANULOCYTES 1.6 % (0-5); LYMPHOCYTE ABS# 1.69 10x3/uL (1.32-3.57); LYMPHOCYTES 8.7 % (15-50); MCH 34.7 pg (26.0-34.0); MCHC 35.1 g/dL (31.0-37.0); MCV 98.8 fL (80.0-100.0); MEAN PLATELET VOLUME 10.5 fL (7.4-10.4); MONOCYTES 11.7 % (2-11); NEUTROPHILS 77.2 % (40-80); PLATELET COUNT 110 10x3/uL (130-400); RBC 3.29 10x6/uL (4.20-6.10); RDW 19.2 % (11.5-14.5); WBC 19.4 10x3/uL (4.8-10.8)
--- NOTE | 2020-12-04 07:00 | NUR ---
AWAKENS INT,SLEEPY THIS AM. DOOR OPEN TO MONITOR
[2020-12-04 07:23] LABS: ALBUMIN 2.1 g/dL (3.4-5.0); ALKALINE PHOSPHATASE 202 U/L (30-120); ALT (SGPT) 34 U/L (10-68); BILIRUBIN - DIRECT 7.95 mg/dL (0.00-0.30); BILIRUBIN - INDIRECT 1.07 mg/dL (0.00-1.00); BILIRUBIN - TOTAL 9.02 mg/dL (0.2-1.3); CALCIUM 7.4 mg/dL (8.5-10.1); CHLORIDE - SERUM 94 mmol/L (98-107); CREATININE - SERUM 8.3 mg/dL (0.6-1.3); GLUCOSE 148 mg/dL (74-106); PHOSPHOROUS 6.3 mg/dL (2.5-4.9); PROTEIN - SERUM 6.3 g/dL (6.4-8.2); SODIUM 139 mmol/L (136-145); eGFR NON AFRICAN AMERICAN 7 mL/min (90-120)
[2020-12-04 07:24] LABS: CALC OSMOLALITY 293 mosm/kg (275-300); CARBON DIOXIDE 35.9 mmol/L (21.0-32.0); CREATINE KINASE 1091 UL (21-232); POTASSIUM - SERUM 3.5 mmol/L (3.5-5.1); UREA NITROGEN 48 mg/dL (7-18)
--- NOTE | 2020-12-04 08:30 | NUR ---
ASSESSMENT PER FLOW SHEET. PATIENT IS NAUSEATED AND HAVING ALOT OF GREEN EMESIS. BED AND FLOOR COVERED. ATTEMPTED NGT PLACEMENT,BUT PATIENT COULD NOT TOLERATE AND REFUSED ANOTHER ATTEMPT.MEDS ORDERED FOR ANXIETY PER MAR. MONITOR
--- NOTE | 2020-12-04 12:48 | NUR ---
DR MCMAHON HAS BEEN TO SE PATIENT AND EXPLAINED TO PATIENT IF KIDNEY FUNCTION IS NOT BETTER IN AM HE MAY HAVE TO START DIALYSIS. PATIENT IS NOW REQUESTING NGT PLACEMENT IN A BIT. PATIENT HOPES IT WILL HELP HIM FEEL BETTER AND HELP KIDNEY FUNCTION.
[2020-12-04 14:08] VITALS: BP 133/60
[2020-12-04 15:11] LABS: SPE - A/G RATIO 0.6 (0.7-1.7); SPE - ALPHA-1 GLOBULIN 0.2 g/dL (0.0-0.4); SPE - ALPHA-2 GLOBULIN 0.6 g/dL (0.4-1.0); SPE - BETA GLOBULIN 0.8 g/dL (0.7-1.3); SPE - GAMMA GLOBULIN 3.3 g/dL (0.4-1.8); SPE - M-SPIKE Not Observed g/dL (Not Observed)
--- NOTE | 2020-12-04 16:15 | NUR ---
BATH AND CHANGE. PATIENT INCONT OF STOOL. STOOL LIGHT BROWN, SOFT FORMED. PATIENT ALSO HAS EMESIS LIGHT TO MEDIUM GREEN IN COLOR. PATIENT STILL DECLINES NGT. PATIENT MADE NPO.IV PULLED OUT WITH CATH TIP INTACT. IV RESITED TO RIGHT HAND X1 STICK, ASEPTIC TECH 20G.
[2020-12-04 20:20] VITALS: BP 99/64
--- NOTE | 2020-12-04 21:13 | NUR ---
PT VOMITING GREEN EMESIS. GAVE ZOFRAN 4 MG IV PUSH. ASSESSMENT PER FLOW-SHEET. NO OTHER NEEDS. WILL CONTINUE TO MONITOR.
[2020-12-05] VITALS (7 sets, daily range): BP systolic 109–137; BP diastolic 61–90
--- NOTE | 2020-12-05 03:31 | NUR ---
PT VOMITED APPROX. 500 CC'S GREEN EMESIS. GAVE ZOFRAN 4 MG IV PUSH. COMPLETE BED AND GOWN CHANGE BY CELESTE BAXTER. NO OTHER NEEDS. WILL REASSESS AND CONTINUE TO MONITOR.
[2020-12-05 08:12] LABS: HEPATITIS C ANTIBODY <0.1 (0.0-0.9)
--- NOTE | 2020-12-05 08:16 | NUR ---
PT IN BED WITH EYES CLOSED, EASILY AROUSES TO VOICE. REPORTS VOMITING ALREADY THIS AM. ASKED FOR A DRINK, PROVIDED A SMALL SIP OF WATER. RESTING IN BED. DENIES ANY OTHER NEEDS AT THIS TIME. BED IN LOWEST POSITION, BED RAILS X2, CALL LIGHT WITHIN REACH. WILL CONTINUE POC.
[2020-12-05 08:32] LABS: ANION GAP 12.9 mmol/L (8-16); CALCIUM 7.2 mg/dL (8.5-10.1); CARBON DIOXIDE 37.5 mmol/L (21.0-32.0); CREATININE - SERUM 8.8 mg/dL (0.6-1.3); PHOSPHOROUS 7.6 mg/dL (2.5-4.9); POTASSIUM - SERUM 3.4 mmol/L (3.5-5.1)
[2020-12-05 09:00] LABS: HEMOGLOBIN 10.7 g/dL (13.5-17.5); LYMPHOCYTE ABS# 1.75 10x3/uL (1.32-3.57); MCH 34.9 pg (26.0-34.0); MCHC 34.5 g/dL (31.0-37.0); MEAN PLATELET VOLUME 11.2 fL (7.4-10.4); NEUTROPHIL ABS# 18.43 10x3/uL (1.78-5.38); PLATELET COUNT 125 10x3/uL (130-400); RBC 3.07 10x6/uL (4.20-6.10); RDW 18.2 % (11.5-14.5)
[2020-12-05 09:46] LABS: PLATELET ESTIMATE NORMAL
[2020-12-05 09:52] LABS: BILIRUBIN - TOTAL 10.77 mg/dL (0.2-1.3); PROTEIN - SERUM 6.4 g/dL (6.4-8.2)
[2020-12-05 09:54] LABS: INR 1.29 (0.85-1.17); PROTIME 14.9 SECONDS (11.6-15.0)
--- NOTE | 2020-12-05 12:41 | NUR ---
PT RESTING IN BED WITH EYES CLOSED, EASILY AROUSES TO VOICE. TOLERATED MEDS WELL. DENIES NEEDS. WILL CONTINUE POC.
--- NOTE | 2020-12-05 15:31 | NUR ---
STARTED IV ABX. TOLERATING WELL. RESTING IN BED WITH EYES CLOSED. NO S/S OF DISTRESS AT THIS TIME. WILL CONTINUE POC.
--- NOTE | 2020-12-05 15:38 | NUR ---
I have reviewed this patient and I concur with the Shift Assessment completed by the Licensed Practical Nurse today this shift.
--- NOTE | 2020-12-05 16:07 | NUR ---
RESTING IN BED WITH EYES CLOSED. IV ABX HUNG, TOLERATING WELL. WILL CONTINUE POC.
--- NOTE | 2020-12-05 17:28 | NUR ---
DR. WOODSON TO DO PLACE TRIALYSIS CATHETER AND NG TUBE UNDER ANESTHESIA TODAY. CONSENTS SIGNED AND IN CHART.
--- NOTE | 2020-12-05 17:41 | NUR ---
PT OUT OF ROOM TO OR FOR TRIALYSIS PLACEMENT/NG TUBE PLACEMENT
[2020-12-06 01:47] VITALS: BP 78/38
[2020-12-06 05:52] VITALS: BP 118/71
[2020-12-06 07:58] LABS: INR 1.33 (0.85-1.17); PROTIME 15.2 SECONDS (11.6-15.0)
[2020-12-06 08:11] LABS: BASOPHILS 0.3 % (0-2); EOSINOPHILS 0.5 % (0-7); HEMATOCRIT 27.8 % (42.0-54.0); HEMOGLOBIN 9.4 g/dL (13.5-17.5); IMMATURE GRANULOCYTES 1.4 % (0-5); LYMPHOCYTE ABS# 2.01 10x3/uL (1.32-3.57); LYMPHOCYTES 7.3 % (15-50); MCH 34.2 pg (26.0-34.0); MCHC 33.8 g/dL (31.0-37.0); MCV 101.1 fL (80.0-100.0); MEAN PLATELET VOLUME 11.2 fL (7.4-10.4); MONOCYTES 6.2 % (2-11); NEUTROPHIL ABS# 23.07 10x3/uL (1.78-5.38); NEUTROPHILS 84.3 % (40-80); PLATELET COUNT 130 10x3/uL (130-400); RBC 2.75 10x6/uL (4.20-6.10); RDW 17.6 % (11.5-14.5); WBC 27.4 10x3/uL (4.8-10.8)
[2020-12-06 08:25] LABS: PHOSPHOROUS 7.8 mg/dL (2.5-4.9)
[2020-12-06 08:32] LABS: VANCOMYCIN - RANDOM 14.2 ug/mL (10.0-20.0)
[2020-12-06 08:49] LABS: CARBON DIOXIDE 34.2 mmol/L (21.0-32.0); CREATININE - SERUM 8.5 mg/dL (0.6-1.3); POTASSIUM - SERUM 3.2 mmol/L (3.5-5.1)
[2020-12-06 08:52] LABS: CALCIUM 6.2 mg/dL (8.5-10.1)
--- NOTE | 2020-12-06 09:18 | NUR ---
PT DROWSY BUT AROUSES TO VOICE. NO MEDS PER NPO. FULL LINEN CHANGE. LOOSE/RUNNY BRIGHT GREEN STOOL. DIALYSIS ON FLOOR. RESTING COMFORTABLY. SANDBAG ON PT TRIALYSIS PORT, SMALL AMOUNT OF BLOOD OOZING FROM UNDER BANDAID. DENIES ANY NEEDS. WILL CONTINUE POC.
--- NOTE | 2020-12-06 10:57 | NUR ---
HUNG IV ABX, TOLERATING WELL. STILL RECEIVING DIALYSIS. RESTING IN BED. DENIES ANY NEEDS. WILL CONTINUE POC.
[2020-12-06 11:25] VITALS: BP 129/75
--- NOTE | 2020-12-06 12:03 | NUR ---
DIALYSIS NURSE STATES PT DID WELL WITH TREATMENT. BLOOD PRESSURE STABLE AND PULSE STABLE.
--- NOTE | 2020-12-06 16:25 | NUR ---
IN BED WITH EYES CLOSED. NO S/S OF DISTRESS NOTED AT THIS TIME. IV ABX HUNG, TOLERATING WELL. WILL CONTINUE POC.
--- NOTE | 2020-12-06 18:04 | NUR ---
I have reviewed this patient and I concur with the Shift Assessment completed by the Licensed Practical Nurse today this shift.
--- NOTE | 2020-12-06 18:05 | NUR ---
CHANGED DRESSING TO TRIALYSIS. PT TOLERATED WELL. STILL HAVING MINIMAL CONTINUOUS BLEEDING FROM SITE. COVERED WITH DRESSING, ABD PAD AND MEDIPORE TAPE.
[2020-12-06 18:13] VITALS: BP 145/70
[2020-12-06 20:23] VITALS: BP 128/67
[2020-12-07 01:19] VITALS: BP 125/69
[2020-12-07 06:27] VITALS: BP 108/65
[2020-12-07 09:10] VITALS: BP 136/84
[2020-12-07 12:56] VITALS: BP 134/71
--- NOTE | 2020-12-07 15:42 | NUR ---
Nutrition follow-up: Pt remains NPO with NGT->LIWS NGT to be clamped and if pt can tolerate->full liquids to start Labs reviewed; PO4: 7.8 +BM Last wt: 217# Pt has been NPO x 5 days; will need to start nutrition support within 24 hours if diet unable to advance. RDN follow-up: 12/08/20
--- NOTE | 2020-12-07 16:01 | NUR ---
OT NOTE: PT ANGRY REGARDING "EVERYTHING" TODAY. UPSET REGARDING NOT BEING ABLE TO EAT.. PT DISMISSES THERAPIST WHEN ATTEMPTS TO EXPLAIN WHY HE IS UNABLE TO EAT AT THIS TIME.. PT VERY FOCUSSED ON ICE CHIPS, EATING, BMS, ETC... PT R LE INTERNALLY ROTATED...REQUIRED MAX ASSIST X 2 FOR SUPINE TO SIT.. MAX ASSIST X 2 TO POSITION SELF AT EOB. PT VERY WEAK AND SOB. DOESNT UNDERSTAND WHY WE ARE MAKING HIM SIT UP WHEN HE HAS NOT HAD ANY FOOD. MAX ASSIST X 2 FOR SIT TO STAND.. WHILE STANDING, PT HAD BM WHICH WAS ALMOST CLEAR AND GELATINOUS?? LINENS CHANGED. PT UNABLE TO STAND GREATER THAN 30 SECONDS WITH WALKER AND MAX ASSIST. UNABLE TO SIDE STEP. EOB SITTING WITHOUT ASSIST. PT ABLE TO WASH FACE/HANDS WITH WASH CLOTH. MAX ASSIST WITH TOILET HYGIENE. PT THINKS HE CAN AMBULATE TO BATHROOM BUT WAS REMINDED THAT HE IS NOT EVEN ABLE TO TAKE ANY SIDE STEPS AT THIS TIME. SIT TO SUPINE WITH MAX ASSIST X 2 (PT UNABLE TO PERFORM LE MGMT WHEN LIEING BACK IN BED). MAX ASSIST WITH ROLLING SIDE TO SIDE. SARAH ANDERSON, OTR/L [phone]
[2020-12-07 17:16] VITALS: BP 127/76
--- NOTE | 2020-12-07 17:57 | NUR ---
OT NOTE: PT COMPLETED BED MOB WITH MAX A X2. PT COMPLETED SIT TO STAND WITH MAX A X2. PT REQUIRED TOTAL A WITH LB HYGIENE SECONDARY TO BM. PT STATED HIS ENDURANCE IS DECREASING. [phone] KRISTY ELENA COTA
[2020-12-07 20:00] VITALS: BP 148/75
[2020-12-08] VITALS: BP 117/72
[2020-12-08 04:00] VITALS: BP 124/73
[2020-12-08 06:19] LABS: CARBON DIOXIDE 34.2 mmol/L (21.0-32.0); CREATININE - SERUM 6.4 mg/dL (0.6-1.3); VANCOMYCIN - RANDOM 23.6 ug/mL (10.0-20.0)
[2020-12-08 06:20] LABS: ANION GAP 14.5 mmol/L (8-16); CALCIUM 8.3 mg/dL (8.5-10.1); PHOSPHOROUS 4.9 mg/dL (2.5-4.9)
[2020-12-08 06:22] LABS: POTASSIUM - SERUM 2.7 mmol/L (3.5-5.1)
[2020-12-08 06:41] LABS: HEMOGLOBIN 9.1 g/dL (13.5-17.5); LYMPHOCYTE ABS# 1.93 10x3/uL (1.32-3.57); MCH 34.5 pg (26.0-34.0); MCHC 33.7 g/dL (31.0-37.0); MCV 102.3 fL (80.0-100.0); MEAN PLATELET VOLUME 11.7 fL (7.4-10.4); NEUTROPHIL ABS# 23.27 10x3/uL (1.78-5.38); PLATELET COUNT 223 10x3/uL (130-400); RBC 2.64 10x6/uL (4.20-6.10); RDW 17.2 % (11.5-14.5); WBC 27.1 10x3/uL (4.8-10.8)
[2020-12-08 08:48] VITALS: BP 111/63
[2020-12-08 10:11] LABS: ANA REFLEX - DIRECT Negative (Negative)
[2020-12-08 13:14] VITALS: BP 127/74
[2020-12-08 13:36] LABS: ALBUMIN 1.5 g/dL (3.4-5.0); BILIRUBIN - DIRECT 11.03 mg/dL (0.00-0.30); BILIRUBIN - INDIRECT 2.48 mg/dL (0.00-1.00); BILIRUBIN - TOTAL 13.51 mg/dL (0.2-1.3); PROTEIN - SERUM 6.3 g/dL (6.4-8.2)
[2020-12-08 14:21] LABS: ANISOCYTOSIS OCC; EOSINOPHILS 1 % (0-7); HYPOCHROMASIA OCC; LYMPHOCYTES 12 % (15-50); MONOCYTES 12 % (2-11); NEUTROPHILS 68 % (40-80); PLATELET ESTIMATE NORMAL; ROULEAUX OCC
--- NOTE | 2020-12-08 14:29 | NUR ---
Nutrition Re-assessment NGT has been removed. "No sign of bowel obstruction" per GI notes. Patient now on HD. Patient is angry about not being able to eat per PT notes. PT also notes patient stated that his endurance was decreasing yesterday. Diet: Clear Liquid PO intake: 100% of dinner last night Last BM: 12/07/20 x 4 Wt: 217# (12/03/20) Meds noted: dulcolax, D5-1/2NS@75, abx, MVI, lasix Labs noted: Na 148(H), K 2.7(L), BUN 80(H), Cr 6.4(H), GFR 10(L), Glu 135(H), alb 1.5(L) Nutrition needs: 2160-2600cal (25-30 kcal/kg IBW), 70-85gms pro (0.8-1gm/kg), 2160-2600mL fluid (or per MD) Nutrition diagnosis: Inadequate energy intake r/t recent h/o post-op ileus after hip sx AEB currently clear liquid diet, clear liquid diet even at goal intake of 100% does not meet estimated energy needs. Recommendations: -Continue to advance diet as tolerated to Renal diet -If unable to advance diet today, recommend nutrition support -RD will follow-up 12/10/20
--- NOTE | 2020-12-08 15:13 | NUR ---
OT NOTE: PT DOING BETTER TODAY. NG TUBE REMOVED. PT CONT TO FOCUS ON HAVING SOMETHING TO DRINK THROUGHOUT TMT. PT REMAINS WEAK AND IS ENCOURAGED TO EXERCISE WHILE IN BED, HOWEVER, PT HAS BEEN VERY SICK. PT PRESENTS TODAY WITH B UE EDEMA.. YESTERDAY IT WAS THE L UE ONLY.. TODAY, B UES. BED MOB WITH MAX ASSIST. CONT TO DEMONSTRATE MINIMAL MOVEMENT IN R LE.. EOB SITTING X 10 MIN.. UE AROM EXS AND LE AROM EXS WHILE SITTING ON EOB. SIT TO STAND WITH MOD/MAX X 2.. TOLERATED STANDING FOR APPROX 1 MIN TODAY..PT CONT WITH LIQUID BMs. PT HAD TO BE CLEANED PRIOR TO THERAPY, AND THEN AGAIN DURING THERAPY. LARGE AMOUNT OF LIQUID/GELATENOUS BM. PT REQUIRES FREQ REST BREAKS DURING TMT DUE TO WEAKNESS AND SOB. BACK TO BED WITH MAX ASSIST X 2.. EDUCATION FOR ROLLING SIDE TO SIDE BUT STILL REQUIRES EXT ASSIST. SARAH ANDERSON, OTR/L [phone]
[2020-12-08 15:20] LABS: ANION GAP 14.8 mmol/L (8-16); CALCIUM 7.8 mg/dL (8.5-10.1); CARBON DIOXIDE 29.8 mmol/L (21.0-32.0); CREATININE - SERUM 6.4 mg/dL (0.6-1.3)
[2020-12-08 15:23] LABS: POTASSIUM - SERUM 2.6 mmol/L (3.5-5.1)
[2020-12-08 18:05] VITALS: BP 123/73
[2020-12-08 20:00] VITALS: BP 118/71
--- NOTE | 2020-12-08 20:00 | NUR ---
PT LYING IN BED SLEEPING WITHOUT DISTRESS, WOKE PT UP FOR HS MEDS. TOOK WITHOUT DIFFICULTY. PROVIDED LEMON KARUK SODA. DENIES OTHER NEEDS. CL IN REACH
[2020-12-09 04:00] VITALS: BP 98/62
--- NOTE | 2020-12-09 04:30 | NUR ---
PT INCONTINENT OF BOWEL. BED BATH GIVEN, LINENS CHANGED. CHONG CARE PROVIDED. CHANGED DRESSING TO RIGHT HIP INCISION
[2020-12-09 05:33] LABS: ANION GAP 13.5 mmol/L (8-16); CALCIUM 7.9 mg/dL (8.5-10.1); CARBON DIOXIDE 29.3 mmol/L (21.0-32.0); CREATININE - SERUM 6.5 mg/dL (0.6-1.3); MAGNESIUM - SERUM 2.3 mg/dL (1.8-2.4); URIC ACID 12.9 mg/dL (2.6-7.2); VANCOMYCIN - RANDOM 18.5 ug/mL (10.0-20.0)
[2020-12-09 05:37] LABS: HEMATOCRIT 26.7 % (42.0-54.0); HEMOGLOBIN 9.1 g/dL (13.5-17.5); LYMPHOCYTES 7.7 % (15-50); MCH 34.5 pg (26.0-34.0); MCHC 34.1 g/dL (31.0-37.0); MCV 101.1 fL (80.0-100.0); MEAN PLATELET VOLUME 11.1 fL (7.4-10.4); NEUTROPHILS 87.8 % (40-80); PLATELET COUNT 221 10x3/uL (130-400); RBC 2.64 10x6/uL (4.20-6.10); WBC 26.6 10x3/uL (4.8-10.8)
[2020-12-09 05:43] LABS: PHOSPHOROUS 3.4 mg/dL (2.5-4.9)
[2020-12-09 05:44] LABS: POTASSIUM - SERUM 2.8 mmol/L (3.5-5.1)
--- NOTE | 2020-12-09 08:46 | NUR ---
PATIENT POX BETWEEN 87-90% ON 13L, DR TUCKER PAGED NEW ORDER RECEIVED FOR BIPAP 29/05 ON 40% AND HE STATED HE WILL BE OVER TO SEE THE PATIENT
[2020-12-09 09:07] VITALS: BP 114/60
[2020-12-09 09:23] LABS: ALBUMIN 1.4 g/dL (3.4-5.0); BILIRUBIN - DIRECT 13.02 mg/dL (0.00-0.30); BILIRUBIN - INDIRECT 2.49 mg/dL (0.00-1.00); BILIRUBIN - TOTAL 15.51 mg/dL (0.2-1.3); PROTEIN - SERUM 6.7 g/dL (6.4-8.2)
[2020-12-09 13:09] VITALS: BP 97/57
[2020-12-09 15:15] LABS: INR 1.23 (0.85-1.17); PROTIME 14.4 SECONDS (11.6-15.0)
[2020-12-09 15:16] LABS: ANION GAP 13.4 mmol/L (8-16); CALCIUM 8.1 mg/dL (8.5-10.1); CARBON DIOXIDE 28.7 mmol/L (21.0-32.0); CREATININE - SERUM 6.8 mg/dL (0.6-1.3); POTASSIUM - SERUM 3.1 mmol/L (3.5-5.1)
[2020-12-09 20:00] VITALS: BP 127/67
--- NOTE | 2020-12-09 20:00 | NUR ---
PT SITTING UP IN BED RESTING, BIPAP ON. DENIES NEEDS AT THIS TIME. CL IN REACH
[2020-12-10] VITALS: BP 124/73
[2020-12-10 04:00] VITALS: BP 139/76
--- NOTE | 2020-12-10 05:45 | NUR ---
PT RECIEVED BED BATH AT THIS TIME. DRESSING TO RIGHT HIP CHANGED. LINENS CHANGED. TEAGAN CARE AND CHONG CARE PROVIDED.
[2020-12-10 06:59] LABS: CALCIUM 7.6 mg/dL (8.5-10.1); CARBON DIOXIDE 22.4 mmol/L (21.0-32.0); CREATININE - SERUM 7.7 mg/dL (0.6-1.3); POTASSIUM - SERUM 3.4 mmol/L (3.5-5.1)
[2020-12-10 07:00] VITALS: BP 105/65
--- NOTE | 2020-12-10 07:00 | NUR ---
REC'D REPORT AND RESUMED CARE, SLEEPING AROUSABLE TO VERBAL STIMULI, VSS, RIGHT IJ TRIALYSIS WITH SPONGE TAPE, CDI, O2 VIA HF NC AT 10L, CHONG TO GRAVITY WITH PACHECO DRAINAGE TO BAG, RIGHT HIP WITH CLEAN DRY INTACT DRESSING, ORIENTED, CALL LIGHT IN REACH, DENIES PAIN,
[2020-12-10 07:01] LABS: PHOSPHOROUS 4.5 mg/dL (2.5-4.9); VANCOMYCIN - RANDOM 24.2 ug/mL (10.0-20.0)
[2020-12-10 07:26] LABS: HEMOGLOBIN 7.8 g/dL (13.5-17.5); LYMPHOCYTE ABS# 1.19 10x3/uL (1.32-3.57); MCH 33.9 pg (26.0-34.0); MCHC 33.9 g/dL (31.0-37.0); MEAN PLATELET VOLUME 10.9 fL (7.4-10.4); NEUTROPHIL ABS# 22.84 10x3/uL (1.78-5.38); PLATELET COUNT 255 10x3/uL (130-400); RDW 16.4 % (11.5-14.5); WBC 25.7 10x3/uL (4.8-10.8)
[2020-12-10 08:17] VITALS: BP 105/65
--- NOTE | 2020-12-10 09:25 | NUR ---
[facility] NURSE HERE FOR DRESSING CHANGE OF LEFT HIP, 4 SETS OF JOZEF TO LATERAL RIGHT LEG NOTED, NO EDEMA OR REDNESS NOTED, ALL INTACT, PATIENT UP ON SIDE, INCONTINENT OF DIARRHEA STOOL, SKIN CARE AND LINEN CHANGE COMPLETED
--- NOTE | 2020-12-10 11:45 | NUR ---
TO HD SUITE VIA BED WITH PERSONNEL X2, AAO, NO NEEDS AT THIS TIME
[2020-12-10 13:48] LABS: EOSINOPHILS 1 % (0-7); LYMPHOCYTES 5 % (15-50); MONOCYTES 3 % (2-11); NEUTROPHILS 86 % (40-80); PLATELET ESTIMATE NORMAL
[2020-12-10 14:11] LABS: MITOCHONDRIAL ANTIBODY <20.0 Units (0.0-20.0); SMOOTH MUSCLE ABS (ACTIN) 15 Units (0-19)
--- NOTE | 2020-12-10 14:45 | NUR ---
Nutrition follow-up: Pt continues with a clear liquid diet; clear liquids x 6 days Labs reviewed HD again today Wt: 216# Loose stools per nurse Recommendations: Nutrition support will begin within 24 hours due to clear liquids x 6 days Follow-up: 12/11/20
--- NOTE | 2020-12-10 15:23 | NUR ---
PC FROM HD SUITE, PATIENT STABLE, 1100 CC'S OFF, VS NOW STABLE, VS: BP 122/64, PULSE 84, O2 SAT 91, O2 15L HFNC, PENDING TRANSFER BACK TO ROOM
--- NOTE | 2020-12-10 16:00 | NUR ---
BACK TO ROOM FROM HD SUITE, PADMAJA DWYER, DENIES PAIN, CALL LIGHT IN REACH, NO NEEDS AT THIS TIME
--- NOTE | 2020-12-10 16:13 | NUR ---
OT NOTE: ATTEMPTED SEVERAL TIMES IN AM, HOWEVER, PT REFUSED.. REQUESTED PM VISIT, HOWEVER, PT WAS SENT TO DIALYSIS IN PM SARAH ANDERSON OTR/L
[2020-12-10 16:14] VITALS: BP 130/67
[2020-12-10 16:47] LABS: SARS-CoV-2 ANTIGEN NEGATIVE- SARS-COV-2 (NEGATIVE)
--- NOTE | 2020-12-10 17:08 | NUR ---
PC TO DR LOPEZ, WANTS REPEAT LAB POST HD BEFORE TREATING ELYTES
[2020-12-10 18:17] LABS: ANION GAP 13.2 mmol/L (8-16); CALCIUM 7.8 mg/dL (8.5-10.1); CARBON DIOXIDE 25.8 mmol/L (21.0-32.0)
[2020-12-10 18:23] LABS: CREATININE - SERUM 5.2 mg/dL (0.6-1.3)
[2020-12-10 20:00] VITALS: BP 117/64
--- NOTE | 2020-12-10 20:00 | NUR ---
PT HAS TEMP AND COMPLAINTS OF PAIN TO BACK. CALLED DR LOPEZ. RECIEVED ORDER FOR NORCO AND UPDATED ON LABS DRAWN AFTER DIALYSIS. ORDER RECIEVED FOR KDUR 60MEQ TO BE GIVEN TONIGHT AND REPEAT LABS IN AM
[2020-12-11] VITALS: BP 119/57
[2020-12-11 04:00] VITALS: BP 105/56
--- NOTE | 2020-12-11 05:00 | NUR ---
PT UPSET THAT HE HAS BEEN ON CLEAR LIQUIDS ALL WEEK. STATES HE CANNOT SURVIVE ON LIQUIDS AND JELLO MUCH LONGER. INFORMED PT THIS NURSE WOULD ADDRESS DIET CONCERNS WITH DR SIM ORELLANA
[2020-12-11 06:56] LABS: BASOPHILS 0.1 % (0-2); EOSINOPHILS 1.4 % (0-7); HEMATOCRIT 23.2 % (42.0-54.0); HEMOGLOBIN 7.9 g/dL (13.5-17.5); IMMATURE GRANULOCYTES 1.4 % (0-5); LYMPHOCYTE ABS# 1.17 10x3/uL (1.32-3.57); LYMPHOCYTES 4.7 % (15-50); MCH 33.8 pg (26.0-34.0); MCHC 34.1 g/dL (31.0-37.0); MCV 99.1 fL (80.0-100.0); MEAN PLATELET VOLUME 10.8 fL (7.4-10.4); MONOCYTES 4.9 % (2-11); NEUTROPHIL ABS# 21.86 10x3/uL (1.78-5.38); NEUTROPHILS 87.5 % (40-80); PLATELET COUNT 300 10x3/uL (130-400); RBC 2.34 10x6/uL (4.20-6.10); RDW 16.6 % (11.5-14.5)
[2020-12-11 06:58] LABS: ANION GAP 13.5 mmol/L (8-16); CALCIUM 8.3 mg/dL (8.5-10.1); PHOSPHOROUS 4.2 mg/dL (2.5-4.9); VANCOMYCIN - RANDOM 20.6 ug/mL (10.0-20.0)
[2020-12-11 06:59] LABS: POTASSIUM - SERUM 3.5 mmol/L (3.5-5.1)
[2020-12-11 07:28] LABS: ALBUMIN 1.2 g/dL (3.4-5.0); BILIRUBIN - DIRECT 14.85 mg/dL (0.00-0.30); BILIRUBIN - INDIRECT 2.77 mg/dL (0.00-1.00); BILIRUBIN - TOTAL 17.62 mg/dL (0.2-1.3); PROTEIN - SERUM 6.2 g/dL (6.4-8.2)
--- NOTE | 2020-12-11 08:07 | OP ---
PATIENT NAME: BILL FERREIRA MEDICAL RECORD: [id number] :63 LOCATION:[id number] ADMISSION DATE:11/29/20 SURGEON: ETHAN BLUM MD DATE OF OPERATION: 11/29/2020 PREOPERATIVE DIAGNOSIS: Right subtrochanteric femur fracture. POSTOPERATIVE DIAGNOSIS: Right subtrochanteric femur fracture. PROCEDURES PERFORMED: Cephalomedullary nailing, right subtrochanteric femur fracture. INDICATIONS FOR THE PROCEDURE: Mr. Ferreira is a 55-year-old male who tripped over a dog chain earlier today and fell landing on his right hip. He sustained a comminuted subtrochanteric femur fracture. He was evaluated in the Emergency Department and arrangements were made for him to come to the operating room for operative repair. Risks, benefits and alternatives of surgery were discussed with the patient and consent was obtained. DESCRIPTION OF PROCEDURE: The patient was met in the holding area where his identity and confirmation of the procedure was performed. The right lower extremity was marked. He was taken to the operating room where he was placed supine on the operating table, and anesthesia was administered. He was then positioned on the [place] table. Extremities were positioned and padded appropriately. Right lower extremity was prepped and draped in a sterile fashion. The patient received preoperative antibiotics and timeout was performed before initiating the case. On initiation of the case, provisional reduction of the fracture was obtained. We then made a small incision laterally and placed a Schanz pin into the proximal femur segment to allow for assistance with reduction. This improved our alignment. We then made an incision at the proximal hip, placed our guide pin at the tip of the greater trochanter. Once we were pleased with its alignment, both AP and lateral, guide pin was advanced to the level of the lesser trochanter. It was then overdrilled with the opening reamer. Our guidewire was then placed and advanced down across the fracture. We were having difficulty aligning it with the distal femur segment and the leg had to be elevated with manual assistance to help achieve this. We also made an incision along the lateral hip and we were able to guide the guidewire into the distal canal. We could advance it to the knee. The wire measured 480. We elected to place a 11 x 420 mm gamma nail. We then began reaming, starting with a size 9, reaming up sequentially to a size 13 for placement of our nail. The nail was attached to the outrigger device and advanced down over the wire. The leg was held in position as we advanced into the distal femur segment and continued to advance it to the level. We were at the appropriate level for our cephalomedullary screw placement. Once we were at this level, a separate incision was made posterior to lateral thigh for placement of our cephalomedullary guide. The guide was inserted and the guide pin was advanced center-center in the femoral head. We were pleased with this position in both AP and lateral planes. The guide pin was then measured to 100. We overdrilled to 105 and placed a 100-mm cephalomedullary screw. It was advanced to the appropriate depth and then locked into place proximally through the nail. The guides and the outrigger device were removed. We then placed a distal locking screw through the distal portion of the nail to complete our fixation using a perfect beaver technique. The screw was placed and final images were obtained that showed good alignment and fixation of our subtrochanteric femur fracture. The wounds were irrigated thoroughly with saline. The deep tissues and IT band OPERATIVE REPORT [id number] [facility] were closed with #1 Vicryl. Subcutaneous tissues were closed with 2-0 Vicryl and the skin was closed with michael. Sterile dressing was placed. The patient was turned back over to anesthesia where he was awakened, extubated, and taken to recovery room in stable condition. POSTOPERATIVE PLAN: The patient is going to be admitted for routine postoperative care. He will receive 24 hours postoperative antibiotics to be started on DVT prophylaxis tomorrow. Physical therapy will be consulted to assist with mobilization, partial weightbearing of right lower extremity (50%). We will see how he does with mobilization. He may need home health or rehab upon discharge. COMPLICATIONS: None. ESTIMATED BLOOD LOSS: 450 mL. ANESTHESIA: General. TRANSINT:[id number] Voice Confirmation ID: [id number] DOCUMENT ID: [id number] ETHAN BLUM MD at 0807 CC: [id number] DICTATION DATE: 11/29/201831 CODE CLERK: 11/29/202112 ADM IN [place] [id number] [place] [address]
[2020-12-11 09:21] VITALS: BP 93/48
--- NOTE | 2020-12-11 09:26 | NUR ---
PT LYING IN BED, PT HAS REMOVED BIPAP MASK. O2 SATS 89% ON ROOM AIR. PT INITIALLY REFUSED BIPAP MASK TO BE REPLACED. O2 @ 13 HF PLACED ON PT. ADMINISTERED AM MEDICATIONS, EDUCATING PT REGARDING IMPORTANCE OF WEARING BIPAP. RESPIRATORY PRESENT TO COMPLETE ABG'S, TALKED WITH PT REGARDING IMPORTANCE OF BIPAP. PT AGREED TO HAVE BIPAP PLACED BACK ON AT THIS TIME. IV TO RIGHT HAND WITH D5 1/2 NS W/ 20KCL @ 30ML/HR INFUSING VIA PUMP. SITE WITHOUT REDNESS OR EDEMA NOTED. TRIALYSIS NOTED TO RIGHT NECK, DRESSING C/D/I. REPORTS DECREASED PAIN FROM PAIN MEDICATION ADMINISTRATION EARLIER. DENIES FURTHER NEEDS AT THIS TIME. CL WITHIN REACH. ENCOURAGED TO CALL WITH NEEDS. CONTINUE POC
--- NOTE | 2020-12-11 12:30 | NUR ---
OT NOTE: HOLD TMT TODAY SECONDARY TO HIGH 02 DEMANDS REQUIRED. SARAH ANDERSON, OTR/L
[2020-12-11 12:50] VITALS: BP 84/51
--- NOTE | 2020-12-11 14:42 | NUR ---
Nutrition Follow-up: "Ileus resolved and now asymptomatic" per GI notes. On HD. Diet: Clear Liquid x 7 days now, PO intake 100% x 3 yesterday Last BM: 12/10/20 (large diarrhea). Wt: 217# (12/03/20) Meds noted: dulcolax, D5-1/2NS KCl@30, vanc, MVI, lasix, probiotics, thiamin Labs noted: Na 131(L), BUN 53(H), Cr 6.0(H), GFR 13(L), Glu 111(H), Alb 1.2(L) Recommendations: -Nutrition support as clear liquid diet does not meet estimated nutrition needs. -RD will follow-up 12/14/20.
--- NOTE | 2020-12-11 20:00 | NUR ---
PT LAYING SUPINE IN BED COMPLAINING OF ABDOMINAL PAIN AND REQUESTING PAIN AND NAUSEA MEDICATION. PT GIVEN PRN MEDICATION. BS 86, NO INSULIN REQUIRED AT THIS TIME. PT REQUESTED LIGHT OFF AND NO ADDITIONAL NEEDS AT THIS TIME. WILL CONTINUE TO MONITOR PATIENT
--- NOTE | 2020-12-11 20:30 | NUR ---
PT LAYING SUPINE IN BED WITH BIPAP ON. PT RESTING COMFORTABLY WITH C/O PAIN IN LOWER LEGS. GABAPENTIN GIVEN SCHEDULED. AT 2345 PT C/O LOWER LEG PAIN AND GIVEN PRN PAIN MEDICATION WITH REPORTED RELEIF. PT BIPAP REMOVED FOR ADMINISTRATION OF MEDICATIONS THEN REPLACED IMMEDIATELY. PT DID NOT WANT TO BE READJUSTED IN THE BED AT THIS TIME. WILL CONTINUE TO MONITOR PATIENT.
[2020-12-11 21:02] VITALS: BP 129/75
[2020-12-11 21:09] VITALS: BP 129/75
[2020-12-12 00:25] VITALS: BP 127/68
[2020-12-12 04:38] VITALS: BP 130/72
[2020-12-12 05:59] LABS: HEMATOCRIT 22.6 % (42.0-54.0); HEMOGLOBIN 7.8 g/dL (13.5-17.5); LYMPHOCYTE ABS# 0.34 10x3/uL (1.32-3.57); MCH 33.9 pg (26.0-34.0); MCHC 34.5 g/dL (31.0-37.0); MCV 98.3 fL (80.0-100.0); MEAN PLATELET VOLUME 10.5 fL (7.4-10.4); NEUTROPHIL ABS# 22.34 10x3/uL (1.78-5.38); PLATELET COUNT 394 10x3/uL (130-400); RDW 16.7 % (11.5-14.5); WBC 23.4 10x3/uL (4.8-10.8)
[2020-12-12 06:10] LABS: INR 1.29 (0.85-1.17); PROTIME 14.9 SECONDS (11.6-15.0)
[2020-12-12 07:22] LABS: ALBUMIN 1.2 g/dL (3.4-5.0); ANION GAP 16.5 mmol/L (8-16); BILIRUBIN - DIRECT 17.52 mg/dL (0.00-0.30); BILIRUBIN - INDIRECT 2.65 mg/dL (0.00-1.00); BILIRUBIN - TOTAL 20.17 mg/dL (0.2-1.3); CALCIUM 8.5 mg/dL (8.5-10.1); CARBON DIOXIDE 23.7 mmol/L (21.0-32.0); PROTEIN - SERUM 6.4 g/dL (6.4-8.2); VANCOMYCIN - RANDOM 17.4 ug/mL (10.0-20.0)
[2020-12-12 07:29] LABS: LYMPHOCYTES 2 % (15-50); NEUTROPHILS 98 % (40-80); PLATELET ESTIMATE NORMAL
[2020-12-12 07:44] LABS: CREATININE - SERUM 8.2 mg/dL (0.6-1.3); PHOSPHOROUS 5.5 mg/dL (2.5-4.9); POTASSIUM - SERUM 4.2 mmol/L (3.5-5.1)
--- NOTE | 2020-12-12 08:16 | NUR ---
RESTING INB ED, NO DISTRESS NOTED, O2 PER NC AT 15, BLOOD GASSES DRAWN, CONT TO MONITOR LABS
[2020-12-12 09:06] VITALS: BP 113/48
--- NOTE | 2020-12-12 10:30 | NUR ---
DRESSING CHANGED TO R HIP, JOZEF INTACT, NO S/S OF INFECTION, WAGNER WELL
--- NOTE | 2020-12-12 11:07 | NUR ---
TAKEN TO DIALYSIS PER BED
[2020-12-12 11:57] VITALS: BP 132/86
[2020-12-12 20:00] VITALS: BP 110/72
[2020-12-13] VITALS: BP 106/64
[2020-12-13 04:00] VITALS: BP 113/63
--- NOTE | 2020-12-13 04:03 | NUR ---
PT RH 20G IV INFILTRATED. IV DC'S HAND SWOLLEN. WARM COMPRESS APPLIED. WILL CONRINUE TO MONITOR.
[2020-12-13 05:41] LABS: INR 1.21 (0.85-1.17); PROTIME 14.2 SECONDS (11.6-15.0)
[2020-12-13 05:42] LABS: BASOPHILS 0 % (0-2); EOSINOPHILS 0 % (0-7); HEMATOCRIT 23.2 % (42.0-54.0); IMMATURE GRANULOCYTES 1.5 % (0-5); LYMPHOCYTE ABS# 0.32 10x3/uL (1.32-3.57); LYMPHOCYTES 1.3 % (15-50); MCH 33.8 pg (26.0-34.0); MCHC 34.5 g/dL (31.0-37.0); MCV 97.9 fL (80.0-100.0); MEAN PLATELET VOLUME 10.3 fL (7.4-10.4); NEUTROPHIL ABS# 22.86 10x3/uL (1.78-5.38); NEUTROPHILS 92.2 % (40-80); PLATELET COUNT 451 10x3/uL (130-400); RBC 2.37 10x6/uL (4.20-6.10); RDW 16.5 % (11.5-14.5); WBC 24.8 10x3/uL (4.8-10.8)
[2020-12-13 06:14] LABS: ALBUMIN 1.5 g/dL (3.4-5.0); ANION GAP 14.3 mmol/L (8-16); BILIRUBIN - DIRECT 18.69 mg/dL (0.00-0.30); BILIRUBIN - INDIRECT 2.69 mg/dL (0.00-1.00); BILIRUBIN - TOTAL 21.38 mg/dL (0.2-1.3); CALCIUM 8.5 mg/dL (8.5-10.1); CARBON DIOXIDE 25.7 mmol/L (21.0-32.0); CREATININE - SERUM 6.2 mg/dL (0.6-1.3); PROTEIN - SERUM 6.2 g/dL (6.4-8.2); VANCOMYCIN - RANDOM 24.2 ug/mL (10.0-20.0)
--- NOTE | 2020-12-13 06:49 | NUR ---
PT A/O X4. RR E/U AT THIS TIME. CHANGED PT LEFT HIP DRESSINGS THAT HAD YELLOW DRAINAGE SATURATING PAD. PT HAD FORMED BROWN BM. COMPLETE LINED CHANGE AT THIS TIME. WILL CONTINUE TO MONITOR.
--- NOTE | 2020-12-13 06:53 | NUR ---
I have reviewed this patient and I concur with the Shift Assessment completed by the Licensed Practical Nurse today this shift.
--- NOTE | 2020-12-13 08:09 | NUR ---
RESTING IN BED, NO DISTRESS NOTED, EYES CLOSED, O2 CONT PER HIGH FLOW AT 15, DRESSING CHANGES TO HIP CONT, MONITOR SUGARS
[2020-12-13 08:39] VITALS: BP 105/67
[2020-12-13 08:42] LABS: D-DIMER-QUANTITATIVE 8.85 ug/mLFEU (0.20-0.54)
--- NOTE | 2020-12-13 08:59 | NUR ---
ELEVATED D DIMER REPORTED TO DR ZAZUETA,
[2020-12-13 13:31] VITALS: BP 140/76
[2020-12-13 17:06] VITALS: BP 148/89
[2020-12-13 20:00] VITALS: BP 99/59
[2020-12-14] VITALS: BP 91/57
--- NOTE | 2020-12-14 01:26 | NUR ---
I have reviewed this patient and I concur with the Shift Assessment completed by the Licensed Practical Nurse today this shift.
[2020-12-14 04:00] VITALS: BP 107/65
[2020-12-14 06:37] LABS: ALBUMIN 1.4 g/dL (3.4-5.0); ANION GAP 17.7 mmol/L (8-16); BILIRUBIN - TOTAL 20.91 mg/dL (0.2-1.3); CALCIUM 8.3 mg/dL (8.5-10.1); CARBON DIOXIDE 23.5 mmol/L (21.0-32.0); POTASSIUM - SERUM 4.2 mmol/L (3.5-5.1); PROTEIN - SERUM 5.8 g/dL (6.4-8.2); VANCOMYCIN - RANDOM 20.9 ug/mL (10.0-20.0)
[2020-12-14 06:40] LABS: HEMATOCRIT 23.5 % (42.0-54.0); HEMOGLOBIN 8.1 g/dL (13.5-17.5); MCHC 34.5 g/dL (31.0-37.0); MCV 98.7 fL (80.0-100.0); NEUTROPHIL ABS# 29.17 10x3/uL (1.78-5.38); PLATELET COUNT 534 10x3/uL (130-400); RBC 2.38 10x6/uL (4.20-6.10); RDW 16.9 % (11.5-14.5)
[2020-12-14 06:48] LABS: CREATININE - SERUM 8.1 mg/dL (0.6-1.3)
[2020-12-14 07:02] LABS: INR 1.32 (0.85-1.17); PROTIME 15.2 SECONDS (11.6-15.0)
--- NOTE | 2020-12-14 08:11 | NUR ---
AM MEDS GIVEN PER EMAR AT THIS TIME. PT LYING IN BED WITH HOB RAISED, RR EVEN NON LABORED WITH O2 IN PLACE. PT AWAKE AND ALERT. NO FURTHER NEEDS VOICED. CLWR.
[2020-12-14 08:52] VITALS: BP 104/58
--- NOTE | 2020-12-14 10:14 | NUR ---
PT REQUESTED FOR HIS BIPAP TO BE PLACED FOR HIM TO TAKE A NAP. BIPAP PLACED AND PT REPOSITIONED. NO FURTHER NEEDS VOICED. CLWR.
--- NOTE | 2020-12-14 10:33 | NUR ---
PT TAKEN TO DIALYSIS PER PCT AT THIS TIME.
[2020-12-14 12:14] LABS: ANISOCYTOSIS OCC; CRENATED CELLS OCC; LYMPHOCYTES 2 % (15-50); MONOCYTES 12 % (2-11); NEUTROPHILS 78 % (40-80); PLATELET ESTIMATE INCREASED; ROULEAUX OCC
--- NOTE | 2020-12-14 13:19 | NUR ---
PT OFF UNIT IN DIAYLSIS AT THIS TIME.
--- NOTE | 2020-12-14 14:13 | NUR ---
REPORT RECEIVED FROM DIALYSIS AT THIS TIME.
--- NOTE | 2020-12-14 14:20 | NUR ---
DIALYSIS TODAY. UNABLE TO REMOVE ANY FLUID DUE TO HYPOTENSION REQUIRING NORMAL SALINE BOLUS X 3 TO A TOTAL OF 500CC WELL 1 DOSE OF ALBUMIN 12.5G. FINAL BLOOD PRESSURE 114/70 WITH UF OFF AFTER FIRST HYPOTENSIVE EPISODE AT 1145 (45 MINUTES AFTER START OF TREATMENT.) REPORT GIVEN TO CRISTI SAMAYOA AT 2532
--- NOTE | 2020-12-14 14:55 | NUR ---
PT REC'D FROM DIALYSIS AT THIS TIME. PT LINENS CHANGED AND NEW GOWN PLACED. TEAGAN CARE COMPLETED. MEDS GIVEN WITH LUNCH TRAY. RR EVEN NON LABORED. NO FURTHER NEEDS VOICED. CLWR.
--- NOTE | 2020-12-14 15:01 | NUR ---
CALLED PT GRANDMOTHER FROM ROOM PER REQUEST FOR PT TO TALK. NO FURTHER NEEDS VOICED. CLWR.
--- NOTE | 2020-12-14 15:38 | NUR ---
Nutrition Re-Assessment Patient is ESRD on HD. On aspiration precautions. On NC and Bipap HS and PRN during the day. Patient was out of the room at time of RD visit. Diet: Renal PO intake: 75% average x last 4 meals recorded Last BM: 12/10/20 Wt: 217# (12/03/20); Admit Wt: 217# (11/29/20) Meds noted: SSI, solumedrol, D5-1/2NS KCl @ 30, dulcolax, abx, MVI, lasix, probiotics, thiamin Labs noted: Na 133(L), BUN 79(H), Cr 8.1(H), GFR 9(L), Glu 147(H), alb 1.4(L) Estimation nutrition needs unchanged from initial assessment. Nutrition diagnosis: Altered nutrition related lab values r/t ESRD AEB BUN 79, Cr 8.1, GFR 9. Nutrition goals: -PO intake =/>75% meals and snacks -Dry weight stable Recommendations: -Continue Renal diet as tolerated. Will continue to honor food preferences within diet restrcitions. -RD will continue to monitor PO intake and wt trend. -RD will follow-up within 4 days.
[2020-12-14 16:03] VITALS: BP 106/70
[2020-12-14 21:36] VITALS: BP 107/62
--- NOTE | 2020-12-14 23:30 | NUR ---
I have reviewed this patient and I concur with the Shift Assessment completed by the Licensed Practical Nurse today this shift.
[2020-12-15 01:23] VITALS: BP 114/76
[2020-12-15 04:00] VITALS: BP 103/61
[2020-12-15 06:06] LABS: INR 1.19 (0.85-1.17)
[2020-12-15 06:18] LABS: ALBUMIN 1.6 g/dL (3.4-5.0); ANION GAP 16.5 mmol/L (8-16); BILIRUBIN - TOTAL 20.9 mg/dL (0.2-1.3); CALCIUM 8.3 mg/dL (8.5-10.1); CARBON DIOXIDE 26.3 mmol/L (21.0-32.0); POTASSIUM - SERUM 3.8 mmol/L (3.5-5.1)
[2020-12-15 06:19] LABS: CREATININE - SERUM 5.9 mg/dL (0.6-1.3)
[2020-12-15 07:02] LABS: BASOPHILS 0.1 % (0-2); EOSINOPHILS 0 % (0-7); HEMOGLOBIN 8.6 g/dL (13.5-17.5); IMMATURE GRANULOCYTES 2.8 % (0-5); LYMPHOCYTE ABS# 1.44 10x3/uL (1.32-3.57); LYMPHOCYTES 4.1 % (15-50); MCH 34.1 pg (26.0-34.0); MCHC 34.4 g/dL (31.0-37.0); MCV 99.2 fL (80.0-100.0); MEAN PLATELET VOLUME 10.1 fL (7.4-10.4); MONOCYTES 1.3 % (2-11); NEUTROPHIL ABS# 32.23 10x3/uL (1.78-5.38); NEUTROPHILS 91.7 % (40-80); PLATELET COUNT 585 10x3/uL (130-400); RBC 2.52 10x6/uL (4.20-6.10); RDW 17.2 % (11.5-14.5); WBC 35.2 10x3/uL (4.8-10.8)
[2020-12-15 10:27] VITALS: BP 119/75
--- NOTE | 2020-12-15 10:44 | NUR ---
PATIENT LYING IN BED WITH NADN. SKIN WARM AND DRY. RESP EVEN AND UNLABORED. PT REFUSED COLACE AND DULOLAX SUPPOSITORY THIS AM. TOOK ALL OTHER AM MED AND TOLERTAED WELL. NO COMPLAINTS AT THIS TIME. WILL CONTINUE TO MONITOR. CALL VALENTINE WITHIN REACH.
[2020-12-15 13:58] VITALS: BP 116/73
--- NOTE | 2020-12-15 15:15 | NUR ---
REMOVED PT CHONG PER MD ORDER. BULB DEFLATED CATHETER TIP INTACT.
--- NOTE | 2020-12-15 16:11 | NUR ---
OT NOTE: PT REQUIRED MOD A FOR BED MOB TASKS. PT COMPLETED EOB SITTING BALANCE WITH SBA. PT COMPLETED SIT TO STAND WITH MIN-MOD A. PT COMPLETED LB HYGIENE WITH MAX A. PT EXHIBITED INCREASED FUNCTIONAL ENDURANCE. [phone] THANK YOU,MARITA JACK
[2020-12-15 18:31] VITALS: BP 102/60
[2020-12-15 20:00] VITALS: BP 102/56
[2020-12-16 02:02] VITALS: BP 117/73
[2020-12-16 06:34] VITALS: BP 151/58
--- NOTE | 2020-12-16 07:01 | NUR ---
Patient refused his colace he says it gives him diarrhea, he appeared to rest well through the night. e is currently resting in bed with his eyes closed.
[2020-12-16 07:49] VITALS: BP 105/61
[2020-12-16 08:06] LABS: ALBUMIN 1.6 g/dL (3.4-5.0); ANION GAP 21.4 mmol/L (8-16); BILIRUBIN - TOTAL 18.69 mg/dL (0.2-1.3); CALCIUM 7.4 mg/dL (8.5-10.1); CARBON DIOXIDE 20.1 mmol/L (21.0-32.0); PROTEIN - SERUM 4.9 g/dL (6.4-8.2)
[2020-12-16 08:07] LABS: CREATININE - SERUM 7.4 mg/dL (0.6-1.3); POTASSIUM - SERUM 4.5 mmol/L (3.5-5.1)
[2020-12-16 08:10] LABS: INR 1.37 (0.85-1.17); PROTIME 15.6 SECONDS (11.6-15.0)
[2020-12-16 08:17] LABS: HEMOGLOBIN 8.3 g/dL (13.5-17.5); MCH 33.9 pg (26.0-34.0); MCHC 34.6 g/dL (31.0-37.0); MEAN PLATELET VOLUME 9.8 fL (7.4-10.4); PLATELET COUNT 586 10x3/uL (130-400); RBC 2.45 10x6/uL (4.20-6.10); RDW 17.6 % (11.5-14.5); WBC 39.9 10x3/uL (4.8-10.8)
[2020-12-16 12:12] VITALS: BP 106/70
[2020-12-16 13:19] LABS: LYMPHOCYTES 7 % (15-50); MONOCYTES 5 % (2-11); NEUTROPHILS 80 % (40-80); PLATELET ESTIMATE INCREASED
--- NOTE | 2020-12-16 14:35 | NUR ---
PATIENT TRANSFERRED TO [facility].
--- NOTE | 2020-12-16 15:38 | NUR ---
OT NOTE: PT COMPLETED BED MOB TASKS WITH MOD-MAX A. PT COMPLETED BUE AROM EXERCISES TOLERATED. PT COMPLETED ORAL CARE WITH SETUP. PT COMPLETED FACE AND HAND HYGIENE WITH SETUP. PT REQUIRED REST BREAKS SECONDARY TO ENDURANCE. [phone] THANK YOU,MARITA JACK
[2020-12-16 20:00] VITALS: BP 111/74
[2020-12-17] VITALS: BP 126/80
[2020-12-17 04:00] VITALS: BP 117/68
[2020-12-17 06:21] LABS: INR 1.26 (0.85-1.17); PROTIME 14.7 SECONDS (11.6-15.0)
[2020-12-17 06:33] LABS: BASOPHILS 0.1 % (0-2); EOSINOPHILS 0 % (0-7); HEMATOCRIT 24.3 % (42.0-54.0); HEMOGLOBIN 8.4 g/dL (13.5-17.5); LYMPHOCYTE ABS# 1.28 10x3/uL (1.32-3.57); LYMPHOCYTES 3.5 % (15-50); MCHC 34.6 g/dL (31.0-37.0); MCV 98.4 fL (80.0-100.0); MEAN PLATELET VOLUME 9.7 fL (7.4-10.4); MONOCYTES 1.7 % (2-11); NEUTROPHIL ABS# 33.87 10x3/uL (1.78-5.38); NEUTROPHILS 91.7 % (40-80); PLATELET COUNT 607 10x3/uL (130-400); RBC 2.47 10x6/uL (4.20-6.10); WBC 36.9 10x3/uL (4.8-10.8)
--- NOTE | 2020-12-17 06:50 | NUR ---
Patient had shoulder pain that was managed with the prescribed pain medications, he is currently resting in bed watching tv.
[2020-12-17 07:28] LABS: ALBUMIN 1.6 g/dL (3.4-5.0); ANION GAP 18.9 mmol/L (8-16); BILIRUBIN - TOTAL 17.31 mg/dL (0.2-1.3); CALCIUM 7.4 mg/dL (8.5-10.1); CARBON DIOXIDE 21.6 mmol/L (21.0-32.0); CREATININE - SERUM 6.1 mg/dL (0.6-1.3); PROTEIN - SERUM 5.3 g/dL (6.4-8.2); VANCOMYCIN - RANDOM 23.9 ug/mL (10.0-20.0)
[2020-12-17 07:29] LABS: POTASSIUM - SERUM 3.5 mmol/L (3.5-5.1)
--- NOTE | 2020-12-17 07:40 | NUR ---
PT IS RESTING IN BED WITH EYES OPEN. RESPIRATIONS ARE EVEN AND UNLABORED. PT IS CONFUSED TO SITUATION BUT IS EASILY REORIENTED. PT ANSWERS ALL QUESTIONS APPROPRIATELY. MANAGER LIGHTING IS ON AND WORKING. O2 VIA HF NC @ 6L. PT WITH JAUNDICE AND YELLOW SCLERA. RLQ/LLQ BRUISING NOTED. RIGHT HIP INCISION NOTED AND IS WNL. PT DENIES PRESENCE OF NUMBNESS/TINGLING TO BUE AND BLE. BLW EDEMA IS NOTED @ 2+. CAP REFILL TO BLE IS < 3 AND PEDAL PULSES ARE PALP. FALL PRECAUTIONS IN PLACE. BED IS IN THE LOWEST POSITION. CALL LIGHT AND BEDSIDE TABLE ARE WITHIN REACH. SIDE RAILS X 2. PT DENIES FURTHER NEEDS. WILL CONT TO MONITOR.
[2020-12-17 09:00] VITALS: BP 112/72
--- NOTE | 2020-12-17 11:19 | NUR ---
BLADDER SCANNER COMPLETED PER REQUEST OF OMAR SMITH APRN. BLADDER SCANNER RESULTS SHOW 28ML IN BLADDER AT THIS TIME. FALL PRECAUTIONS IN PLACE. BED IS IN THE LOWEST POSITION. CALL LIGHT AND BEDSIDE TABLE ARE WITHIN REACH. SIDE RAILS X 2. PT DENIES FURTHER NEEDS. WILL CONT TO MONITOR.
[2020-12-17 13:17] VITALS: BP 111/70
--- NOTE | 2020-12-17 14:38 | NUR ---
TRIALYSIS CENTRAL LINE DRESSING CHANGED PER PROTOCOL. STERILE TECHNIQUE FOLLOWED. PT TOLERATED WELL. BED IS IN THE LOWEST POSITION. ALL LIGHT AND BEDSIDE TABLE ARE WITHIN REACH. SIDE RAILS X 2. PT DENIES FURTHERNEEDS. WILL CONT TO MONITOR.
[2020-12-17 16:09] VITALS: BP 123/78
--- NOTE | 2020-12-17 16:27 | NUR ---
FLUIDS DC PER ORDER. DR SAUCEDO AT BEDSIDE AND ORDERS BUE VENOUS US TO RULE OUT DVT DUE TO BUE EDEMA. FALL PRECAUTIONS IN PLACE. BED IS IN THE LOWEST POSITION. CALL LIGHT AND BEDSIDE TABLE ARE WITHIN REACH. SIDE RAILS X 2. PT DENIES FURTHER NEEDS. WILL CONT TO MONITOR.
--- NOTE | 2020-12-17 16:33 | NUR ---
OT NOTE: PT REFUSED SEVERAL TIMES IN AM STATING THAT HE JUST GOT COMFORTABLE IN THE BED. IN PM, PT RELUCTANTLY AGREEABLE TO PARTICIPATE. BED MOB WITH MOD ASSIST FOR SUPINE TO SIT; PT WITH C/O ABD PAIN TODAY. UNABLE TO TOLERATE LUNCH TODAY. UE AROM EXS WHILE SITTING ON EOB..PT WITH EDEMA TO B UES. REPOSITIONED IN BED WITH MOD ASSIST TODAY. PT DOING BETTER WITH BED MOB. SARAH ANDEROSN, OTR/L 140-2
[2020-12-17 20:00] VITALS: BP 122/76
[2020-12-18] VITALS: BP 113/75
--- NOTE | 2020-12-18 02:35 | NUR ---
Awake off and on this shift. No complaint of chest pain or discomfort voiced. Telemetry shows sinus rhythm. [place] given with good results for compaints of generalized aching pain. Accu check at 2100 was 189 and pt received 8 units of humalog as per sliding scale. Continues to have no urine output. Upper and lower extremities continue to be edematous. Encouraged to call for needs. Call light in easy reach. Safety rounds made.
[2020-12-18 04:00] VITALS: BP 115/75
[2020-12-18 06:02] LABS: INR 1.32 (0.85-1.17); PROTIME 15.2 SECONDS (11.6-15.0)
[2020-12-18 06:07] LABS: VANCOMYCIN - RANDOM 20.2 ug/mL (10.0-20.0)
[2020-12-18 06:08] LABS: CREATININE - SERUM 7.7 mg/dL (0.6-1.3)
--- NOTE | 2020-12-18 07:20 | NUR ---
REC'D IN BED WITH EYES CLOSED EASILY TO AROUSED WHEN NAME IS CALLED. RESP EVEN AND UNLABORD WWIH NO DISTRESS NOTED. CAN EXPRESS NEEDS AND WANTS. NO C/O NOTED OR VOICED. ASSESSSMENT COMPLETED. C/L IN REACH AT BEDSIDE.
[2020-12-18 08:15] VITALS: BP 122/80
--- NOTE | 2020-12-18 10:27 | NUR ---
PT OFF THE FLOOR AT THIS TIME FOR DAILYSIS. STABLE CONDITION UPON DEPARTURE.
--- NOTE | 2020-12-18 12:33 | MORECARE ---
CASE MANAGEMENT DISCHARGE SUMMARY PATIENT: BILL MCKAY UNIT: [id number] ADM DATE: 11/29/20 AGE: 55 : 63 SEX: M ROOM/BED: D.2237 AUTHOR: RAÚL,DOC PHYSICIAN: REFERRING PHYSICIAN: KENNY LOPEZ MD DATE OF SERVICE: 12/18/20 Discharge Plan Patient Name: BILL MCKAY Facility: [facility]:[place] : 1965 Planned Disposition: Anticipated Discharge Date: Discharge Date: Expected LOS: Initial Reviewer: [email or web address] Initial Review Date: 11/29/2020 Generated: 12/18/20 1:32 pm Comments DCP- Discharge Planning Updated by [email or web address]: Flora Valdes on 12/18/20 11:[address] Patient Name: BILL MCKAY Admission Status: ER Accout number: [id number] Admission Date: 11-29-2020 : 1965 Admission Diagnosis:DISPLACED SUBTROCHANTERIC FRACTURE OF RIGHT FEMUR, INIT Attending: KENNY LOPEZ Current LOS: 19 Anticipated DC Date: Planned Disposition: Primary Insurance: MEDICAID [place] Discharge Planning Comments: Patient is on day 19, therefore only has 2 days left that insurance will cover for inpatient rehab. [facility] will not accept patient with only 2 days left. I anticipate patient to dc to home with home health if needed. His oxygen demand is decreasing which is an improvement. I spoke with Joi JOINER nephrology and she is letting Kayla know to start working on a dialysis chair for this patient. CM to follow and assist as needed. Publicity Agent: Flora Valdes DCP- Discharge Planning Updated by [email or web address]: Flora Valdes on 12/02/20 12:[address] Patient Name: BILL MCKAY Admission Status: ER Accout number: [id number] Admission Date: 11-29-2020 : 1965 Admission Diagnosis:DISPLACED SUBTROCHANTERIC FRACTURE OF RIGHT FEMUR, INIT Attending: KENNY LOPEZ Current LOS: 3 Anticipated DC Date: Planned Disposition: Primary Insurance: MEDICAID [place] Discharge Planning Comments: I HAVE CONTACTED INPATIENT REHAB AT [facility] TO SEE IF THEY WOULD TAKE THIS PATIENT WITH MEDICAID. WAITING CALL BACK. Publicity Agent: Flora ALANIZ export: 12/02/20 12:27 p Patient Name: BILL MCKAY Page [phone] at 1233 All edits/amendments must be made on the electronic document DICTATION DATE: 12/18/20 1232 DRAFTER AUTOMOTIVE DESIGN LAYOUT: PAULINE 12/18/20 1232 RPT#: [id number] DC DATE: STATUS: ADM IN [facility] [address] [place] [address] END OF REPORT
--- NOTE | 2020-12-18 13:03 | NUR ---
I have reviewed this patient and I concur with the Shift Assessment completed by the Licensed Practical Nurse today this shift.
--- NOTE | 2020-12-18 13:59 | NUR ---
JUST RETURN FROM DAILYSIS AT THIS TIME. C/L IN REACH AT BEDSIDE.
--- NOTE | 2020-12-18 15:17 | NUR ---
OT NOTE: PT COMPLETED BUE AROM EXERCISES TOLERATED. PT COMPLETED FACE AND HAND HYGIENE WITH SETUP. PT COMPLETED ORAL HYGIENE WITH SETUP. [phone] THANK YOU,MARITA JACK
--- NOTE | 2020-12-18 16:16 | NUR ---
Nutrition Follow-up Continues on HD. Patient OOR at time of RD visit. Diet: Renal Mech Soft PO intake: was 50-100% (12/12-12/14), ate 25% x 2 meals yesterday Last BM: 12/15/20 Wt: 217# (12/03/20)- no new weight Meds noted: solumedrol, vanc, SSI, dulcolax, MVI, probiotics, thiamin Labs noted: Na 133(L), BUN 62(H), Cr 7.7(H), GFR 12(L), POC Glu 200(H) Recommendations/Interventions: -Needs new weight. -Will add Nepro TID with meals. -Continue renal diet. Will continue to honor food preferences within diet restrictions. -RD will continue to monitor PO intake and wt trend. -RD will follow-up 12/22/20.
[2020-12-18 17:35] VITALS: BP 123/78
[2020-12-18 20:00] VITALS: BP 113/81
--- NOTE | 2020-12-19 03:12 | NUR ---
HAS RESTED WELL THIS SHIFT. VARGHESE GIVEN X1 FOR COMPLAINT OF GENERALIZED UPPER BODY PAIN. CONTINUES TO HAVE NO URINE OUTPUT. ENCOURAGED TO CALL FOR ASSISTANCE NEEDED. CALL LIGHT IN EASY REACH. SAFETY ROUNDS MADE.
[2020-12-19 04:43] LABS: BASOPHILS 0.1 % (0-2); EOSINOPHILS 0 % (0-7); HEMATOCRIT 22.4 % (42.0-54.0); HEMOGLOBIN 7.7 g/dL (13.5-17.5); IMMATURE GRANULOCYTES 2.3 % (0-5); LYMPHOCYTE ABS# 1.53 10x3/uL (1.32-3.57); LYMPHOCYTES 4.8 % (15-50); MCH 33.3 pg (26.0-34.0); MCHC 34.4 g/dL (31.0-37.0); MEAN PLATELET VOLUME 9.4 fL (7.4-10.4); MONOCYTES 1.3 % (2-11); NEUTROPHIL ABS# 29.27 10x3/uL (1.78-5.38); NEUTROPHILS 91.5 % (40-80); PLATELET COUNT 527 10x3/uL (130-400); RBC 2.31 10x6/uL (4.20-6.10); RDW 18.5 % (11.5-14.5)
[2020-12-19 04:59] VITALS: BP 117/68
[2020-12-19 05:00] LABS: ALBUMIN 1.7 g/dL (3.4-5.0); BILIRUBIN - DIRECT 11.7 mg/dL (0.00-0.30); BILIRUBIN - INDIRECT 2.32 mg/dL (0.00-1.00); BILIRUBIN - TOTAL 14.02 mg/dL (0.2-1.3); CALCIUM 7.3 mg/dL (8.5-10.1); CREATININE - SERUM 6.1 mg/dL (0.6-1.3); PROTEIN - SERUM 5.1 g/dL (6.4-8.2)
[2020-12-19 05:03] LABS: INR 1.32 (0.85-1.17); PROTIME 15.2 SECONDS (11.6-15.0); VANCOMYCIN - RANDOM 17.4 ug/mL (10.0-20.0)
[2020-12-19 08:54] VITALS: BP 119/73
--- NOTE | 2020-12-19 13:35 | NUR ---
I have reviewed this patient and I concur with the Shift Assessment completed by the Licensed Practical Nurse today this shift.
[2020-12-19 17:51] VITALS: BP 129/79
[2020-12-19 20:00] VITALS: BP 136/77
--- NOTE | 2020-12-19 23:20 | NUR ---
PT IN BED WITH EYES CLOSED, NO SIGNS OF DISTRESS AT THE MOMENT. PT COMPLAIN OF PAIN AND MEDICATION WAS GIVEN WITLL CONT TO MONITOR.
[2020-12-20] VITALS: BP 120/71
[2020-12-20 04:00] VITALS: BP 130/70
[2020-12-20 05:18] LABS: HEMATOCRIT 21.8 % (42.0-54.0); LYMPHOCYTE ABS# 1.05 10x3/uL (1.32-3.57); MCH 33.6 pg (26.0-34.0); MCHC 34.4 g/dL (31.0-37.0); MCV 97.8 fL (80.0-100.0); MEAN PLATELET VOLUME 9.2 fL (7.4-10.4); NEUTROPHIL ABS# 27.43 10x3/uL (1.78-5.38); PLATELET COUNT 460 10x3/uL (130-400); RBC 2.23 10x6/uL (4.20-6.10); RDW 18.7 % (11.5-14.5); WBC 29.9 10x3/uL (4.8-10.8)
[2020-12-20 05:20] LABS: HEMOGLOBIN 7.5 g/dL (13.5-17.5)
[2020-12-20 05:23] LABS: LYMPHOCYTES 5 % (15-50); MONOCYTES 3 % (2-11); NEUTROPHILS 88 % (40-80); PLATELET ESTIMATE INCREASED
[2020-12-20 05:59] LABS: INR 1.28 (0.85-1.17); PROTIME 14.9 SECONDS (11.6-15.0)
[2020-12-20 06:01] LABS: ALBUMIN 1.6 g/dL (3.4-5.0); ANION GAP 14.7 mmol/L (8-16); BILIRUBIN - TOTAL 12.83 mg/dL (0.2-1.3); CALCIUM 7.3 mg/dL (8.5-10.1); CARBON DIOXIDE 24.9 mmol/L (21.0-32.0); CREATININE - SERUM 5.9 mg/dL (0.6-1.3); POTASSIUM - SERUM 3.6 mmol/L (3.5-5.1); PROTEIN - SERUM 5.2 g/dL (6.4-8.2); VANCOMYCIN - RANDOM 13.6 ug/mL (10.0-20.0)
[2020-12-20 09:27] VITALS: BP 128/84
[2020-12-20 15:22] VITALS: BP 129/82
[2020-12-20 18:00] VITALS: BP 134/82
[2020-12-20 20:00] VITALS: BP 129/68
--- NOTE | 2020-12-21 03:05 | NUR ---
HAS RESTED WELL THIS SHIFT. WANTED NORCO FOR GENERALIZED PAIN EARLIER, BUT MEDICATION HAS BEEN DISCONTINUED. PATIENT TOOK HIS GABAPENTIN WITHOUT DIFFICULTY. HS ACCU CHECK WAS 112 AND PATIENT DID NOT REQUIRE SLIDING SCALE INSULINE. ENCOURAGED TO CALL FOR ASSISTANCE NEEDED. CALL LIGHT IN EASY REACH. SAFETY ROUNDS MADE.
[2020-12-21 04:00] VITALS: BP 117/61
--- NOTE | 2020-12-21 07:20 | NUR ---
REC'D IN BED WITH EYES CLOSED EASILY TO AROUSED WHEN NAME IS CALLED. RESP EVEN AND UNLABORED WITH NO DISTRESS NOTED. CAN EXPRESS NEEDS AND WANTS. NO C/O NOTED OR VOICED. ASSESSMENT COMPLETED. C/L IN REACH AT BEDSIDE.
--- NOTE | 2020-12-21 07:38 | NUR ---
LYING IN BED,WITHOUT SIGNS OF DISTRESS.SBA BUSINESS DEVELOPMENT OFFICER IN ROOM.
[2020-12-21 08:29] VITALS: BP 129/65
[2020-12-21 09:33] LABS: INR 1.42 (0.85-1.17); PROTIME 16.1 SECONDS (11.6-15.0); RBC 2.11 10x6/uL (4.20-6.10); WBC 27.9 10x3/uL (4.8-10.8)
[2020-12-21 09:34] LABS: BASOPHILS 0 % (0-2); EOSINOPHILS 1.5 % (0-7); HEMATOCRIT 20.6 % (42.0-54.0); IMMATURE GRANULOCYTES 0.8 % (0-5); LYMPHOCYTE ABS# 0.95 10x3/uL (1.32-3.57); LYMPHOCYTES 3.4 % (15-50); MCH 33.2 pg (26.0-34.0); MCV 97.6 fL (80.0-100.0); MEAN PLATELET VOLUME 9.1 fL (7.4-10.4); MONOCYTES 1.4 % (2-11); NEUTROPHIL ABS# 25.87 10x3/uL (1.78-5.38); NEUTROPHILS 92.9 % (40-80); PLATELET COUNT 365 10x3/uL (130-400); RDW 18.2 % (11.5-14.5)
[2020-12-21 09:40] LABS: ALBUMIN 1.6 g/dL (3.4-5.0); ANION GAP 20.1 mmol/L (8-16); BILIRUBIN - TOTAL 12.48 mg/dL (0.2-1.3); CARBON DIOXIDE 22.6 mmol/L (21.0-32.0); POTASSIUM - SERUM 3.7 mmol/L (3.5-5.1); PROTEIN - SERUM 4.6 g/dL (6.4-8.2); VANCOMYCIN - RANDOM 12.1 ug/mL (10.0-20.0)
[2020-12-21 09:41] LABS: CREATININE - SERUM 8.4 mg/dL (0.6-1.3)
--- NOTE | 2020-12-21 11:58 | NUR ---
OFF FLOOR TO DAILYSIS AT THIS TIME VIA NURSE AND SALESPERSON JEWELRY. WITH BLOOD TRANSFUSING.
--- NOTE | 2020-12-21 12:28 | MORECARE ---
CASE MANAGEMENT DISCHARGE SUMMARY PATIENT: BILL MCKAY UNIT: [id number] ADM DATE: 11/29/20 AGE: 55 : 63 SEX: M ROOM/BED: D.2237 AUTHOR: RAÚL,DOC PHYSICIAN: REFERRING PHYSICIAN: KENNY LOPEZ MD DATE OF SERVICE: 12/21/20 Discharge Plan Patient Name: BILL MCKAY Facility: [facility]:[place] : 1965 Planned Disposition: Anticipated Discharge Date: Discharge Date: Expected LOS: Initial Reviewer: [email or web address] Initial Review Date: 11/29/2020 Generated: 12/21/20 1:27 pm DCP- Discharge Planning Updated by [email or web address]: Flora Valdes on 12/18/20 11:[address] Patient Name: BILL MCKAY Admission Status: ER Accout number: [id number] Admission Date: 11-29-2020 : 1965 Admission Diagnosis:DISPLACED SUBTROCHANTERIC FRACTURE OF RIGHT FEMUR, INIT Attending: KENNY LOPEZ Current LOS: 19 Anticipated DC Date: Planned Disposition: Primary Insurance: MEDICAID [place] Discharge Planning Comments: Patient is on day 19, therefore only has 2 days left that insurance will cover for inpatient rehab. [facility] will not accept patient with only 2 days left. I anticipate patient to dc to home with home health if needed. His oxygen demand is decreasing which is an improvement. I spoke with Joi JOINER nephrology and she is letting Kayla know to start working on a dialysis chair for this patient. CM to follow and assist as needed. Seam Steamer: Flora Valdes DCP- Discharge Planning Updated by [email or web address]: Flora Valdes on 12/02/20 12:[address] Patient Name: BILL MCKAY Admission Status: ER Accout number: [id number] Admission Date: 11-29-2020 : 1965 Admission Diagnosis:DISPLACED SUBTROCHANTERIC FRACTURE OF RIGHT FEMUR, INIT Attending: KENNY LOPEZ Current LOS: 3 Anticipated DC Date: Planned Disposition: Primary Insurance: MEDICAID [place] Discharge Planning Comments: I HAVE CONTACTED INPATIENT REHAB AT [facility] TO SEE IF THEY WOULD TAKE THIS PATIENT WITH MEDICAID. WAITING CALL BACK. Seam Steamer: Flora Moreno DP export: 12/18/20 11:33 am Patient Name: BILL MCKAY Page [phone] at 1228 All edits/amendments must be made on the electronic document DICTATION DATE: 12/21/201226 MANUFACTURE SPECIALIST: PAULINE 12/21/207 RPT#: [id number] DC DATE: STATUS: ADM IN [facility] [address] [place] [address] END OF REPORT
--- NOTE | 2020-12-21 12:35 | MORECARE ---
CASE MANAGEMENT DISCHARGE SUMMARY PATIENT: BILL MCKAY UNIT: [id number] ADM DATE: 11/29/20 AGE: 55 : 63 SEX: M ROOM/BED: D.2237 AUTHOR: RAÚL,DOC PHYSICIAN: REFERRING PHYSICIAN: KENNY LOPEZ MD DATE OF SERVICE: 12/21/20 Discharge Plan Patient Name: BILL MCKAY Facility: [facility]:[place] : 1965 Planned Disposition: Anticipated Discharge Date: Discharge Date: Expected LOS: Initial Reviewer: [email or web address] Initial Review Date: 11/29/2020 Generated: 12/21/20 1:34 pm Comments DCP- Discharge Planning Updated by [email or web address]: Flora Valdes on 12/21/20 11:[address] Patient Name: BILL MCKAY Admission Status: ER Accout number: [id number] Admission Date: 11-29-2020 : 1965 Admission Diagnosis:DISPLACED SUBTROCHANTERIC FRACTURE OF RIGHT FEMUR, INIT Attending: KENNY LOPEZ Current LOS: 22 Anticipated DC Date: Planned Disposition: Primary Insurance: MEDICAID [place] Discharge Planning Comments: PATIENT IS NOW OUT OF DAYS FOR REHAB AT [facility]. WITH PATIENT'S INSURANCE HIS [facility] HOSPITAL Resources are limited. I anticipate patient will need Home health, possible oxygen, and equipment. He will be a new dialysis patient also. CM to follow and assist as needed. Printer Slotter Feeder: Flora Valdes DCP- Discharge Planning Updated by [email or web address]: Flora Valdes on 12/18/20 11:[address] Patient Name: BILL MCKAY Admission Status: ER Accout number: [id number] Admission Date: 11-29-2020 : 1965 Admission Diagnosis:DISPLACED SUBTROCHANTERIC FRACTURE OF RIGHT FEMUR, INIT Attending: KENNY LOPEZ Current LOS: 19 Anticipated DC Date: Planned Disposition: Primary Insurance: [place] Discharge Planning Comments: Patient is on day 19, therefore only has 2 days left that insurance will cover for inpatient rehab. [facility] will not accept patient with only 2 days left. I anticipate patient to dc to home with home health if needed. His oxygen demand is decreasing which is an improvement. I spoke with Joi JOINER nephrology and she is letting Kayla know to start working on a dialysis chair for this patient. CM to follow and assist as needed. Printer Slotter Feeder: Flora Valdes DCP- Discharge Planning Updated by [email or web address]: Flora Valdes on 12/02/20 12:[address] Patient Name: BILL MCKAY Admission Status: ER Accout number: [id number] Admission Date: 11-29-2020 : 1965 Admission Diagnosis:DISPLACED SUBTROCHANTERIC FRACTURE OF RIGHT FEMUR, INIT Attending: KENNY LOPEZ Current LOS: 3 Anticipated DC Date: Planned Disposition: Primary Insurance: MEDICAID [place] Discharge Planning Comments: I HAVE CONTACTED INPATIENT REHAB AT [facility] TO SEE IF THEY WOULD TAKE THIS PATIENT WITH MEDICAID. WAITING CALL BACK. Printer Slotter Feeder: Flora Valdes Last DP export: 12/21/20 11:28 am Patient Name: BILL MCKAY Page [phone] at 1235 All edits/amendments must be made on the electronic document DICTATION DATE: 12/21/20 1234 LASERIST: PAULINE 12/21/20 1234 RPT#: [id number] DC DATE: STATUS: ADM IN [facility] [address] [place] [address] END OF REPORT
[2020-12-21 20:00] VITALS: BP 108/53
[2020-12-22] VITALS: BP 106/50
[2020-12-22 04:00] VITALS: BP 129/71
--- NOTE | 2020-12-22 04:11 | NUR ---
HAS RESTED WELL THIS SHIFT. CLARKCO GIVEN X 1 WITH GOOD RESULTS FOR COMPLAINT OF HURTING ALL OVER. DRESSINGS TO RIGHT HIP CHANGED. TOLERATED PROCEDURE WELL. ENCORUAGED TO CALL FOR ASSISTANCE NEEDED. CALL LIGHT IN EASY REACH. SAFETY ROUNDS MADE.
[2020-12-22 07:08] LABS: INR 1.33 (0.85-1.17); PROTIME 15.3 SECONDS (11.6-15.0)
[2020-12-22 07:16] LABS: ALBUMIN 1.5 g/dL (3.4-5.0); ANION GAP 15.4 mmol/L (8-16); BILIRUBIN - TOTAL 11.45 mg/dL (0.2-1.3); CALCIUM 7.4 mg/dL (8.5-10.1); CARBON DIOXIDE 25.3 mmol/L (21.0-32.0); POTASSIUM - SERUM 3.7 mmol/L (3.5-5.1); PROTEIN - SERUM 4.5 g/dL (6.4-8.2); VANCOMYCIN - RANDOM 18.6 ug/mL (10.0-20.0)
[2020-12-22 07:24] LABS: CREATININE - SERUM 5.9 mg/dL (0.6-1.3)
[2020-12-22 07:32] LABS: BASOPHILS 0 % (0-2); EOSINOPHILS 2.2 % (0-7); HEMATOCRIT 20.1 % (42.0-54.0); HEMOGLOBIN 6.8 g/dL (13.5-17.5); IMMATURE GRANULOCYTES 0.7 % (0-5); LYMPHOCYTE ABS# 1.21 10x3/uL (1.32-3.57); MCH 29.7 pg (26.0-34.0); MCHC 33.8 g/dL (31.0-37.0); MCV 87.8 fL (80.0-100.0); MEAN PLATELET VOLUME 9.1 fL (7.4-10.4); MONOCYTES 4.1 % (2-11); NEUTROPHIL ABS# 21.41 10x3/uL (1.78-5.38); PLATELET COUNT 310 10x3/uL (130-400); RBC 2.29 10x6/uL (4.20-6.10); RDW 27.7 % (11.5-14.5); WBC 24.4 10x3/uL (4.8-10.8)
[2020-12-22 09:28] VITALS: BP 137/79
--- NOTE | 2020-12-22 10:00 | NUR ---
PT VERY AGITATED THIS MORNING ABOUT HAVING DIARRHEA AND ASKED IF HIS PAIN MEDICATION HAD BEEN CHANGED BECAUSE IT DIDN'T LOOK LIKE WHAT HE HAS TAKEN BEFORE, PT DOES NOT WANT TO GO TO DIALYSIS WHILE HAVING DIARRHEA
--- NOTE | 2020-12-22 12:32 | NUR ---
Nutrition follow-up: Diet order: renal mechanical soft; Nepro with meals PO intake continues to be ~25% of meals; pt reports early satiety Drinking some Nepro Now with diarrhea Labs reviewed WT: 216# Pt c/o being weak and not feeling well Will continue to provide food choices and honor food preferences withn diet restrictions. Recommendations: A trial of an appetite stimulant may be beneficial if physician agrees. RDN follow-up: 12/25/20
--- NOTE | 2020-12-22 14:46 | NUR ---
OT NOTE: PT VERY RESISTANT TO PERFORM THERAPY THIS AM.. PT AGITATED AND FRUSTRATED.. BED MOB WITH MOD ASSIST FOR SUPINE TO SIT. THERAPIST INSTRUCTED PT TO MOVE R LE INTO BETTER POSITION WHILE IN SITTING, IT IS EXTREMELY INTERNALLY ROTATED AT THE HIP. PT SPEAKS UNKINDLY TO THIS THERAPIST REGARDING POSITION OF LEG (AND EVERYTHING ELSE) EXPLAINED TO PT THAT I WAS ONLY HERE TO HELP, BUT THAT HE SHOULD BE ABLE TO MOVE HIS LEG MORE THAN HE IS, HE IS SEVERAL WEEKS POST SURGERY. REMINDED PT THAT HE IS INSTRUCTED DAILY BY THERAPY TO MOVE IN BED AND EXERCISE HIS LEG, BUT DOES NOT APPEAR TO BE HAPPPENING. PT ABLE TO STAND WITH MOD ASSIST X 2; PT HAS DIARRHEA DAILY DURING THERAPY. TOTAL ASSIST FOR PERINEAL CARE. TOLERATED STANDING FOR APPROX 3 MIN FOLLOWED BY REST BREAK AND REFUSED TO ATTEMPT TO STAND AGAIN. EDUCATED PT (UMANG) ON IMPORTANCE OF EXERCISING UE/LES WHILE IN BED.. PT NOT INTERESTED AND NON COMPLIANT. SARAH ANDERSON, OTR/L [phone]
[2020-12-22 20:00] VITALS: BP 126/69
[2020-12-23] VITALS: BP 143/87
--- NOTE | 2020-12-23 02:20 | NUR ---
HAS RESTED WELL THIS SHIFT. TELEMETRY SHOWS SINUS RHYTHM AT 82BPM. OXYCODONE GIVEN X1 WITH GOOD RESULTS FOR COMPLAINT OF GENERALIZED BODY PAIN. BENEFITS OF SCDS EXPLAINED TO PATIENT AND HE REFUSED INTERVENTION. BATH GIVEN PER COLD WORK OPERATOR. PATIENT TOLERATED WELL. ENCOURAGED TO CALL FOR ASSISTANCE NEEDED. CALL LIGHT IN EASY REACH. SAFETY ROUNDS MADE.
[2020-12-23 04:00] VITALS: BP 128/69
[2020-12-23 06:48] LABS: BASOPHILS 0.1 % (0-2); EOSINOPHILS 2.1 % (0-7); HEMATOCRIT 23.3 % (42.0-54.0); HEMOGLOBIN 7.8 g/dL (13.5-17.5); IMMATURE GRANULOCYTES 0.5 % (0-5); LYMPHOCYTE ABS# 0.53 10x3/uL (1.32-3.57); LYMPHOCYTES 3.1 % (15-50); MCH 29.3 pg (26.0-34.0); MCHC 33.5 g/dL (31.0-37.0); MCV 87.6 fL (80.0-100.0); MEAN PLATELET VOLUME 9.3 fL (7.4-10.4); MONOCYTES 8.8 % (2-11); NEUTROPHIL ABS# 14.58 10x3/uL (1.78-5.38); NEUTROPHILS 85.4 % (40-80); PLATELET COUNT 268 10x3/uL (130-400); RBC 2.66 10x6/uL (4.20-6.10); RDW 26.4 % (11.5-14.5)
[2020-12-23 06:52] LABS: ALBUMIN 1.6 g/dL (3.4-5.0); ANION GAP 15.7 mmol/L (8-16); BILIRUBIN - TOTAL 10.61 mg/dL (0.2-1.3); CALCIUM 7.6 mg/dL (8.5-10.1); CARBON DIOXIDE 24.8 mmol/L (21.0-32.0); CREATININE - SERUM 5.2 mg/dL (0.6-1.3); POTASSIUM - SERUM 3.5 mmol/L (3.5-5.1); PROTEIN - SERUM 4.7 g/dL (6.4-8.2)
[2020-12-23 06:55] LABS: INR 1.33 (0.85-1.17); PROTIME 15.3 SECONDS (11.6-15.0)
[2020-12-23 07:03] LABS: WBC 17.1 10x3/uL (4.8-10.8)
--- NOTE | 2020-12-23 10:30 | NUR ---
PT HAS VERBALIZED THAT THEY WILL DC PATIENT TODAY DUE TO HIM BEING UNCOOPERATIVE. SHE STATES PATIENT IS VERY RUDE TO STAFF AND WILL NOT DO THERAPY FOR THEM EITHER.
--- NOTE | 2020-12-23 10:47 | NUR ---
NURSE CALLS DIALYSIS TO VERIFY IF PATIENT CAN GO TO DIALYSIS TODAY
[2020-12-23 12:41] VITALS: BP 153/77
--- NOTE | 2020-12-23 13:59 | NUR ---
NURSE CALLS BLOOD BANK TO SEE IF BLOOD IF READY. BLOOD NOT READY YET.
--- NOTE | 2020-12-23 16:09 | NUR ---
NURSE CHANGES PATIENT'S TRIALYSIS DRESSING TO THE RIGHT SIDE OF HIS NECK. NURSE ALSO CHANGES NURSES PORT PER PROTOCOL. PATIENT TOLERATED WELL. NAD NOTED.
--- NOTE | 2020-12-23 16:31 | NUR ---
NURSE FOR IR WILL BE AT PATIENT'S ROOM AT 0700. IR NURSE NEEDS AN AM NURSE TO BE THERE AT BEDSIDE WITH HER TO DRAW FROM NURSE'S PORT.
--- NOTE | 2020-12-23 16:40 | NUR ---
OT NOTE: PT STATED HE DID NOT HAVE DIALYSIS TODAY. KIRKLAND ASKED PT IF HE WOULD LIKE TO BRUSH TEETH AND WASH FACE. PT STATED HE WAS" TRYING TO ENJOY MY MORNING BUT NOW I CAN'T." PT STATED, " YOU CAN CLEAN MY ASS SINCE I HAVE BEEN LAYING DIRTY." KIRKLAND ASKED FOR STRIP FEEDER ASSIST AND SPOKE WITH NURSING ABOUT PT SELF LIMITING BEHAVIOR. KIRKLAND ASKED," DO YOU WANT TO GET UP TO TOILET...PT STATED "NO". KIRKLAND NOTIFIED OTR OF PT SELF LIMITING BEHAVIOR. PT STATED." I AM SICK OF THEM COMING IN HERE AND SWOOPING ME UP." PT REQUIRED TOTAL A FOR LB HYGIENE TASKS. THANK YOU,MARITA JACK
[2020-12-23 17:11] VITALS: BP 124/72
[2020-12-23 17:43] LABS: CREATININE - URINE 82.4 mg/dL (30-125)
[2020-12-23 17:44] LABS: PRO/CRE RATIO URINE 5.2 mg/g; PROTEIN - URINE 428.4 mg/dL (0.0-11.9)
--- NOTE | 2020-12-23 17:48 | NUR ---
CALLED CRISTI MCCORMICK FOR REPORT THIS AM AND WAS TOLD THAT PATIENT STATED THAT MD SAID HE COULD "SKIP" DIALYSIS TODAY. CALLED DR. ANTUNEZ TO VERIFY AND HE CONFIRMED PATIENT DOES NOT REQUIRE DIALYSIS TODAY. FLOOR NOTIFIED.
[2020-12-23 18:06] LABS: BILIRUBIN NEGATIVE (NEGATIVE); KETONE NEGATIVE (NEGATIVE); NITRITE NEGATIVE (NEGATIVE); UROBILINOGEN NORMAL mg/dL (< 2)
[2020-12-23 18:09] LABS: BACTERIA MANY HPF (NONE SEEN)
[2020-12-23 20:00] VITALS: BP 148/87
--- NOTE | 2020-12-23 22:52 | NUR ---
pt was asleep upon assessment. easy to arouse. complained of pain and was given pain medication. no other issues noted at this time. call tejada light in reach. bed in lowest position
[2020-12-24 04:00] VITALS: BP 150/78
[2020-12-24 05:59] LABS: INR 1.33 (0.85-1.17); PROTIME 15.2 SECONDS (11.6-15.0)
[2020-12-24 06:06] LABS: ALBUMIN 1.5 g/dL (3.4-5.0); BILIRUBIN - DIRECT 6.5 mg/dL (0.00-0.30); BILIRUBIN - INDIRECT 1.14 mg/dL (0.00-1.00); BILIRUBIN - TOTAL 7.64 mg/dL (0.2-1.3); PROTEIN - SERUM 5.4 g/dL (6.4-8.2)
[2020-12-24 07:02] LABS: BASOPHILS 0.1 % (0-2); EOSINOPHILS 3.1 % (0-7); HEMATOCRIT 24.1 % (42.0-54.0); HEMOGLOBIN 8.1 g/dL (13.5-17.5); IMMATURE GRANULOCYTES 0.3 % (0-5); LYMPHOCYTE ABS# 0.84 10x3/uL (1.32-3.57); LYMPHOCYTES 6.2 % (15-50); MCH 29.2 pg (26.0-34.0); MCHC 33.6 g/dL (31.0-37.0); MEAN PLATELET VOLUME 9.3 fL (7.4-10.4); MONOCYTES 13.2 % (2-11); NEUTROPHIL ABS# 10.45 10x3/uL (1.78-5.38); NEUTROPHILS 77.1 % (40-80); PLATELET COUNT 227 10x3/uL (130-400); RBC 2.77 10x6/uL (4.20-6.10); RDW 23.8 % (11.5-14.5); WBC 13.6 10x3/uL (4.8-10.8)
[2020-12-24 07:15] LABS: ANION GAP 16.4 mmol/L (8-16); CALCIUM 8.1 mg/dL (8.5-10.1); CARBON DIOXIDE 23.1 mmol/L (21.0-32.0); POTASSIUM - SERUM 3.5 mmol/L (3.5-5.1); VANCOMYCIN - RANDOM 23.6 ug/mL (10.0-20.0)
[2020-12-24 07:16] LABS: CREATININE - SERUM 6.8 mg/dL (0.6-1.3)
[2020-12-24 08:37] VITALS: BP 149/84
--- NOTE | 2020-12-24 09:49 | NUR ---
PT SITTING UP IN BED, MEDS GIVEN, PT ON 1500 FLUID RESTRICTION, PT DOES NOT CURRENTLY HAVE FLUIDS RUNNING, DRESSING ON RIGHT LEG IS CLEAN DRY AND INTACT,
--- NOTE | 2020-12-24 11:12 | NUR ---
PT LET THIS RN KNOW THAT PATIENT REQUESTED PAIN MEDICATION, PT WAS GETTING AGITATED BY REQUEST NOT BEING MET SOON ENOUGH, PT ALSO REQUESTED SKY MIRANDA, INSTRUCTED PT THAT HE NEEDED TO BE CAREFUL WITH HOW MUCH FLUID INTAKE HE HAD SINCE HE WAS NOT GETTING DIALYSIS TODAY IN ORDER TO HAVE THE WHITE BLOOD CELL SCAN. PT WAS NOT HAPPY ABOUT THIS. REQUESTED TO HAVE HIS TEMPERATURE TAKEN
--- NOTE | 2020-12-24 12:53 | NUR ---
OT NOTE: PT STILL SLIGHTLY RESISTANT TO PARTICIPATE WITH THERAPY. ASKS DAILY, WHY WE COME IN TO MOVE HIM AROUND WHEN HE JUST GOT SITUATED.. AND THERAPIST EXPLAINED ( WE DO DAILY) THAT HE WILL GET MORE WEAK AND STIFF IF HE DOESNT START MOVING AROUND. ASSISTED TO EOB WITH MIN/MOD ASSIST; EOB SITTING WITHOUT SUPPORT; PT COMPLAINING THE WHOLE TIME..EDUCATED PT ABOUT KEEPING R LEG FROM INTERNALLY ROTATING WHILE IN SITTING AND STANDING. PT GETS ANGRY WITH INSTRUCTION REGARDING THIS.. THERAPIST HAD TO MANUALLY KEEP R FOOT SOMEWHAT EXTENDED IN ORDER TO PREVENT TOO MUCH WT BEARING AND PREVENT INTERNAL ROTATION OF HIP. TRANSFERRED PT TO TOILET WITH WALKER AND MOD ASSIST; PT UNABLE TO HAVE A BM AFTER APPROX 5 MIN. ASSISTED BACK TO BED WITH MOD ASSIST X 2 SARAH ANDERSON OTR/L
[2020-12-24 13:14] VITALS: BP 154/86
--- NOTE | 2020-12-24 14:00 | NUR ---
Nutrition reassessment: Diet order: Full liquid, downgraded due to diarrhea PO intake continues to be poor Pt gets angry very fast. Labs reviewed Ht: 6'2" Wt: 216# IBW: 190# +/-10% BMI: 27.7 Estimated needs remain the same as initial assessment Nutrition diagnosis: Inadequate oral intake R/T pts mentation AEB observed poor po intake since hospsital admit. Goals: - PO intake =/> 75% of meals, snacks - Meet at least 75% of estimated fluid needs - stable wt +/-5# Interventions: Please get a current wt to chart; no new wt since 12/03 Recommendations: Appetite stimulant if physician agrees. Follow-up: 12/28/20
--- NOTE | 2020-12-24 15:10 | NUR ---
PT TAKEN FOR WHITE BLOOD CELL SCAN
[2020-12-24 20:00] VITALS: BP 131/70
[2020-12-25] VITALS: BP 139/84
[2020-12-25 04:00] VITALS: BP 130/79
[2020-12-25 06:28] LABS: BASOPHILS 0.2 % (0-2); EOSINOPHILS 3.2 % (0-7); HEMATOCRIT 22.1 % (42.0-54.0); IMMATURE GRANULOCYTES 0.5 % (0-5); LYMPHOCYTE ABS# 1.24 10x3/uL (1.32-3.57); LYMPHOCYTES 9.6 % (15-50); MCH 29.1 pg (26.0-34.0); MCHC 33.5 g/dL (31.0-37.0); MONOCYTES 10.5 % (2-11); NEUTROPHIL ABS# 9.78 10x3/uL (1.78-5.38); PLATELET COUNT 191 10x3/uL (130-400); RBC 2.54 10x6/uL (4.20-6.10); RDW 23.7 % (11.5-14.5); WBC 12.9 10x3/uL (4.8-10.8)
[2020-12-25 06:29] LABS: HEMOGLOBIN 7.4 g/dL (13.5-17.5)
[2020-12-25 06:46] LABS: INR 1.5 (0.85-1.17); PROTIME 16.7 SECONDS (11.6-15.0)
[2020-12-25 07:07] LABS: ALBUMIN 1.5 g/dL (3.4-5.0); ANION GAP 16.2 mmol/L (8-16); BILIRUBIN - DIRECT 5.66 mg/dL (0.00-0.30); BILIRUBIN - INDIRECT 1.02 mg/dL (0.00-1.00); BILIRUBIN - TOTAL 6.68 mg/dL (0.2-1.3); CALCIUM 8.3 mg/dL (8.5-10.1); CARBON DIOXIDE 24.3 mmol/L (21.0-32.0); PHOSPHOROUS 6.8 mg/dL (2.5-4.9); POTASSIUM - SERUM 3.5 mmol/L (3.5-5.1); PROTEIN - SERUM 5.3 g/dL (6.4-8.2); VANCOMYCIN - RANDOM 20.4 ug/mL (10.0-20.0)
--- NOTE | 2020-12-25 07:20 | NUR ---
REC'D IN ROOM AWAKE AND ALERT. RESP EVEN AND UNLABORED WITH NO DISTRESS NOTED. CAN EXPRESS NEEDS AND WANTS. NO C/O NOTED OR VOICED AT THIS TIME. ASSESSMENT COMPLETED. C/L IN REACH AT BEDSIDE.
[2020-12-25 08:37] VITALS: BP 143/78
--- NOTE | 2020-12-25 09:30 | NUR ---
SPOKE WITH DR. VENEGAS ABOUT PT DIET BEING FULL LIQUID AND REC'D NEW ORDERS FOR RENAL DIET AND ANOTHER SPEECH THERAPY CONSULT.
--- NOTE | 2020-12-25 09:32 | NUR ---
Dialysis Coordinator: Request clarification/update on POC/D/c dispo for patient. Please contact Coordinator at [phone]. Kayla Salgado, [employer].
--- NOTE | 2020-12-25 09:41 | EC ---
PATIENT:BILL MCKAY DATE OF SERVICE: 11/29/20 SEX: M MEDICAL RECORD: [id number] DATE OF : [birth year] LOCATION:[facility] AGE OF PATIENT: 55 ADMISSION DATE: 11/29/20 REFERRING PHYSICIAN: INTERPRETING PHYSICIAN: ETHEL SHETH MD ECHOCARDIOGRAM REPORT ECHO CHARGES 4 ECHO COMPLETE Date: 12/23/20 CLINICAL DIAGNOSIS: R/O VEG, SEPSIS, HX:AFIB ECHOCARDIOGRAPHIC MEASUREMENTS (adult normal given) AC root (d.<3.7cm) 3.8 cm LV Septum d (<1.2 cm> 1.1 cm Valve Excursion 2.2 cm LV Septum (systole) 1.4 cm Left Atria (s.<4.0cm> 4.4 cm LVPW d(<1.2cm) 1.1 cm RV (d.<2.3cm) 3.0 cm LVPW (sytole) 1.2 cm LV diastole(<5.6CM) 4.2 cm MV E-F(>70mm/sec) cm LV systole 3.3 cm LVOT Diameter 1.9 cm MV exc.(>10mm) 1.4 cm Est.ejection fraction (50-75%) % DOPPLER: LVIT cm/sec A 58 cm/sec E 88 cm/sec LA cm/sec RVSP 38 mmHg LVOT 113 cm/sec AOP1/2T m/s Asc. Ao 141 cm/sec RVOT 61 cm/sec RA cm/sec PA 93 cm/sec AV Gradient Peak 8.0 mmHg AV Mean 4.5 mmHg AV Area 2.5 cm MV Gradient Peak 4.2 mmHg MV Mean 2.3 mmHg MV Area cm COMMENTS: Vendor Management Specialist: 5 [facility] Junior Estimator: 3 Dr. Archibald TAPE# Pericardial Effusion N DATE OF SERVICE: Adequate 2D, color-flow imaging, spectral Doppler, and M-Mode FINDINGS: No LVH. LV internal dimensions are normal. Wall motion is normal. EF is greater than or equal to 55%. Aortic valve is tricuspid. No evidence of stenosis by Doppler interrogation. Left atrium is dilated at 4.4 cm. Mitral valve shows no prolapse. Trace MR. Right side is grossly normal. Trace TR. TRANSINT:[id number] Voice Confirmation ID: [id number] DOCUMENT ID: [id number] ECHOCARDIOGRAM REPORT [id number] BILL MCKAY GREGORY A MD at 0941 CC: [id number] DICTATION DATE: 12/24/20813 GEOSPATIAL INFORMATION SCIENTIST: 12/24/20 09 ADM IN [place] [id number] [place] [id number]
--- NOTE | 2020-12-25 10:42 | NUR ---
I have reviewed this patient and I concur with the Shift Assessment completed by the Licensed Practical Nurse today this shift.
--- NOTE | 2020-12-25 10:46 | NUR ---
WAS MEDICATED WITH OXY IR PER ORDERS FOR C/O GENERALIZED PAIN RATING 9/10 IN PRAVEEN SCALE. C/L IN REACH AT BEDSIDE.
--- NOTE | 2020-12-25 11:09 | NUR ---
DRESSING CHANGED TO RIGHT HIP AT TIME. TOLERATED WELL. C/L IN REACH AT BEDSIDE.
--- NOTE | 2020-12-25 12:17 | NUR ---
OFF FLOOR AT THIS TIME TO DAILYSIS VIA BED.
[2020-12-25 12:19] VITALS: BP 140/73
--- NOTE | 2020-12-25 14:43 | NUR ---
OT NOTE: D/W NURSING PRIOR TO TMT. NURSE REPORTS THAT SHE HAD ALREADY EXPLAINED TO PT THAT HE HAS TO GET UP TODAY, HE IS BECOMING PROGRESSIVELY MORE WEAK DUE TO LIMITED MOVEMENT. UPON ENTERING ROOM, PT ALREADY ASKING WHY HE HAS TO DO ANYTHING. THIS IS EXPLAINED DAILY. PT VERY IRRITABLE AND ARGUMENTATIVE WITH THERAPIST. ANY INSTRUCTIONS PROVIDED, PT DISAGREES WITH.. BED MOB WITH VERY MIN ASSIST; EOB SITTING X 8-9 MIN. ASSISTED WITH CHANGING PTS GOWN AND LINENS THEY WERE SATURATED FROM R HIP INCISION SITE. PT PROVIDED WITH WARM WASHCLOTHS AND HE WAS ABLE TO WASH FACE, HANDS, AND UPPER BODY WITH SET UP.. REQUESTED NURSING TO CHECK INCISION. SHE CHANGED DRESSING. PT REFUSED TO GET UP TO RECLINER BECAUSE HE SAID THAT IT WAS TOO LOW. SAID THAT IF HE GOT UP HE WOULD JUST SIT ON BS COMMODE. PT ABLE TO STAND WITH RW AND MOD ASSIST X 2.. UNABLE TO TOLERATE GREATER THAN 20-30 SECS. SARAH ANDERSON, OTR/L [phone]
--- NOTE | 2020-12-25 15:44 | NUR ---
JUST RETURNED FROM DAILYSIS AT THIS TIME TO ROOM. NO C/O NOTED OR VOICED.
--- NOTE | 2020-12-25 15:50 | NUR ---
DIALYSIS COMPLETE WITH NO ISSUES. 3 L REMOVED. POST TREATMENT VITALS: BP 135/62, HR 102, RR 19, SPO2 9%, TEMP 98.6 FLUID REMOVED 3850 ML MINUS 500 ML PRIME/RINSEBACK MINUS 350 ML PRBC NET REMOVED 3000 ML
--- NOTE | 2020-12-25 15:57 | NUR ---
WAS MEDICATED WITH OXY IR PER ORDERS FOR C/O PAIN RATING 8/10 ON PAIN SCALE. C/L IN REACH AT BEDSIDE.
[2020-12-25 20:16] VITALS: BP 139/83
[2020-12-26 00:38] VITALS: BP 130/80
--- NOTE | 2020-12-26 00:56 | NUR ---
pt has been resting in bed. complained of abdomen pain and was given pain medication. no other complaints at this time. alert and oriented. scds on. bed in lowest position with call light in reach
[2020-12-26 04:57] VITALS: BP 107/74
[2020-12-26 06:28] LABS: BASOPHILS 0.1 % (0-2); EOSINOPHILS 2.9 % (0-7); HEMATOCRIT 24.1 % (42.0-54.0); HEMOGLOBIN 8.1 g/dL (13.5-17.5); IMMATURE GRANULOCYTES 0.3 % (0-5); LYMPHOCYTE ABS# 1.36 10x3/uL (1.32-3.57); LYMPHOCYTES 12.3 % (15-50); MCH 29.3 pg (26.0-34.0); MCHC 33.6 g/dL (31.0-37.0); MCV 87.3 fL (80.0-100.0); MEAN PLATELET VOLUME 9.4 fL (7.4-10.4); MONOCYTES 9.2 % (2-11); NEUTROPHIL ABS# 8.31 10x3/uL (1.78-5.38); NEUTROPHILS 75.2 % (40-80); PLATELET COUNT 166 10x3/uL (130-400); RBC 2.76 10x6/uL (4.20-6.10); RDW 21.8 % (11.5-14.5); WBC 11.1 10x3/uL (4.8-10.8)
[2020-12-26 06:51] LABS: ANION GAP 13.7 mmol/L (8-16); CALCIUM 8.3 mg/dL (8.5-10.1); CARBON DIOXIDE 26.6 mmol/L (21.0-32.0); CREATININE - SERUM 6.5 mg/dL (0.6-1.3); PHOSPHOROUS 5.3 mg/dL (2.5-4.9); POTASSIUM - SERUM 3.3 mmol/L (3.5-5.1); VANCOMYCIN - RANDOM 15.3 ug/mL (10.0-20.0)
[2020-12-26 08:00] VITALS: BP 114/60
[2020-12-26 08:04] LABS: INR 1.45 (0.85-1.17); PROTIME 16.3 SECONDS (11.6-15.0)
--- NOTE | 2020-12-26 08:08 | NUR ---
PT AAOX4 UPON ENETERING. MORNING MEDICATION ADMINISTERED AT THIS TIME, NO DIFFICULTIES. REFUSING DIALYSIS UNTIL AFTER BREAKFAST. WILL CALL DOWN. DENIES ANY OTHER NEEDS AT THIS TIME. BED IN LOWEST POSITION, BED RAILS X2, CALL LIGHT WITHIN REACH. WILL CONTINUE POC.
--- NOTE | 2020-12-26 11:39 | NUR ---
I have reviewed this patient and I concur with the Shift Assessment completed by the Licensed Practical Nurse today this shift.
--- NOTE | 2020-12-26 11:59 | NUR ---
IN DIALYSIS. EASILY AROUSES TO VOICE. ADMINSTERED MEDICATION, PRN OXY. NO DIFFICULTIES. NO INSULIN PER SLIDING SCALE FOR SUGAR OF 113. RESTING COMFORTABLY. DENIES ANY FURTHER NEEDS AT THIS TIME.
--- NOTE | 2020-12-26 15:15 | NUR ---
UP RIGHT IN BED, ADMINISTERED MEDICATION, NO DIFFICULTIES. DENIES ANY NEEDS AT THIS TIME. WILL CONTNIUE POC.
--- NOTE | 2020-12-26 17:13 | NUR ---
AROUSES EASILY TO VOICE. NO INSULIN PER SLIDING SCALE FOR SUGAR OF 120. RESTING COMFORTABLY IN BED. DENIES ANY NEEDS AT THIS TIME. WILL CONTINUE POC.
--- NOTE | 2020-12-26 19:15 | NUR ---
PATIENT RESTING IN BED WITH EYES CLOSED AND NO S/S OF DISTRESS. BED IN LOWEST POSITION AND CALL LIGHT IN REACH.
[2020-12-26 20:02] VITALS: BP 114/75
--- NOTE | 2020-12-26 20:03 | NUR ---
ADMINISTERED MEDS PER ORDERS. PATIENT WAGNER WELL. ENCOURAGED TO CALL WITH NEEDS.
[2020-12-27 04:52] VITALS: BP 140/75
[2020-12-27 07:05] LABS: BASOPHILS 0.2 % (0-2); EOSINOPHILS 3.7 % (0-7); HEMATOCRIT 22.6 % (42.0-54.0); IMMATURE GRANULOCYTES 0.2 % (0-5); LYMPHOCYTES 13.1 % (15-50); MCHC 32.7 g/dL (31.0-37.0); MCV 88.6 fL (80.0-100.0); NEUTROPHIL ABS# 7.87 10x3/uL (1.78-5.38); NEUTROPHILS 73.8 % (40-80); PLATELET COUNT 166 10x3/uL (130-400); RBC 2.55 10x6/uL (4.20-6.10); RDW 21.5 % (11.5-14.5); WBC 10.7 10x3/uL (4.8-10.8)
[2020-12-27 07:12] LABS: INR 1.41 (0.85-1.17)
[2020-12-27 07:18] LABS: ANION GAP 10.6 mmol/L (8-16); CALCIUM 8.6 mg/dL (8.5-10.1); CARBON DIOXIDE 28.9 mmol/L (21.0-32.0); CREATININE - SERUM 5.4 mg/dL (0.6-1.3); PHOSPHOROUS 4.6 mg/dL (2.5-4.9); POTASSIUM - SERUM 3.5 mmol/L (3.5-5.1)
[2020-12-27 07:25] LABS: HEMOGLOBIN 7.4 g/dL (13.5-17.5)
--- NOTE | 2020-12-27 08:31 | NUR ---
ANSWERING SERVICE PAGED MD BOILERMAKER LOFTSMAN TO NOTIFY MD OF HGB 7.4. WAITING CALL BACK.
--- NOTE | 2020-12-27 09:10 | NUR ---
ALERT AND ORIENTED. ASSESSMENT COMPLETE. DENIES NEEDS. BED LOW. CALL VALENTINE AND PERSONAL ITEMS IN REACH. WILL CONTINUE TO MONITOR.
[2020-12-27 09:33] VITALS: BP 121/68
--- NOTE | 2020-12-27 10:08 | NUR ---
TOP DRSG TO RIGHT HIP SATURATED WITH YELLOW DRAINAGE. BOTH DRSGS REMOVED FROM RIGHT HIP. INCISIONS CLEANED THOROUGHLY WITH WOUND CLEANSER. RHYS DEL CASTILLO IN ROOM TO LOOK AT HIP. INCISIONS COVERED WITH TWO MEPILEX DRSGS WITH CLOTH FRAMER IN ROOM.
--- NOTE | 2020-12-27 10:44 | NUR ---
NEPHROLOGY NOTIFIED OF PATIENT'S HGB. NO BLOOD ORDERS GIVEN. ORDER PLACED PER DR AGUIRRE FOR ALBUMIN.
--- NOTE | 2020-12-27 12:08 | NUR ---
SITTING IN BED EATING LUNCH. DENIES NEEDS.
[2020-12-27 12:23] VITALS: BP 112/76
--- NOTE | 2020-12-27 14:15 | NUR ---
PATIENT STATES IS ITCHING AND WANTS MEDICATION. REGISTERED PHLEBOTOMIST PART TIME SERVICE PAGED FOR .
[2020-12-27 16:00] VITALS: BP 131/78
--- NOTE | 2020-12-27 19:26 | NUR ---
PATIENT RESTING IN BED WITH NO S/S OF DISTRESS. PATIENT DENIES NEEDS AT THIS TIME. BED IN LOWEST POSITION AND CALL LIGHT IN REACH. ENCOURAGED PATIENT TO CALL WITH NEEDS.
[2020-12-27 19:44] VITALS: BP 128/65
--- NOTE | 2020-12-27 20:01 | NUR ---
ADMINISTERED MEDS PER ORDERS. PATIENT WAGNER WELL. ENCOURAGED TO CALL WITH NEEDS.
--- NOTE | 2020-12-27 22:53 | NUR ---
PATIENT RESTING IN BED WITH NO S/S OF DISTRESS. EXPLAINED TO THE PATIENT THAT HE IS NOTHING TO EAT OR DRINK AFTER MIDNIGHT, THAT HE WILL BE ASSISTED WITH A CHG BATH IN THE AM, AND THAT HE WILL NEED TO SIGN CONSENTS FOR HIS PROCEDURE IN THE MORNING. PATIENT IS AGGRAVATED AND STATED THAT NO ONE HAS SPOKEN TO HIM ABOUT A PROCEDURE. I EXPLAINED TO THE PATIENT ABOUT THE PROCEDURE. PATIENT WANTS TO SPEAK TO THE DOCTOR PRIOR TO SIGNING CONSENTS.
[2020-12-28 06:28] LABS: ANION GAP 13.2 mmol/L (8-16); CALCIUM 8.8 mg/dL (8.5-10.1); CARBON DIOXIDE 26.2 mmol/L (21.0-32.0); PHOSPHOROUS 4.9 mg/dL (2.5-4.9); POTASSIUM - SERUM 3.4 mmol/L (3.5-5.1)
[2020-12-28 06:29] LABS: CREATININE - SERUM 6.8 mg/dL (0.6-1.3)
--- NOTE | 2020-12-28 07:25 | NUR ---
PT RESTING QUIETLY IN BED. STAFF ENTERS ROOM. HE LOUDLY STATES TO STAFF. "ARE THEY DOING THIS TODAY OR NOT. WHEN ARE THEY GOING TO DO IT AND WHEN CAN I EAT." DISCUSSED THE PROCEDURE WITH PT AND THAT THEY WOULD BE PLACING THE HEMOSPLIT TODAY. PT SIGNED CONSENTS AT THIS TIME FOR PROCEDURE. TRIALYSIS, SL TO RIGHT NECK, SITE WITHOUT REDNESS OR EDEMA. PT DENIES PAIN AT THIS TIME. PT DENIES FURTHER NEEDS AT THIS TIME. CL WITHIN REACH. ENCOURAGED TO CALL WITH NEEDS. CONTINUE POC
[2020-12-28 07:26] LABS: INR 1.58 (0.85-1.17); PROTIME 17.5 SECONDS (11.6-15.0)
[2020-12-28 07:31] LABS: BASOPHILS 0.2 % (0-2); IMMATURE GRANULOCYTES 0.3 % (0-5); LYMPHOCYTE ABS# 1.41 10x3/uL (1.32-3.57); LYMPHOCYTES 13.6 % (15-50); MCH 29.2 pg (26.0-34.0); MCHC 32.8 g/dL (31.0-37.0); MCV 88.9 fL (80.0-100.0); MEAN PLATELET VOLUME 8.7 fL (7.4-10.4); MONOCYTES 7.7 % (2-11); NEUTROPHIL ABS# 7.71 10x3/uL (1.78-5.38); NEUTROPHILS 74.2 % (40-80); PLATELET COUNT 154 10x3/uL (130-400); RBC 2.16 10x6/uL (4.20-6.10); RDW 21.1 % (11.5-14.5); WBC 10.4 10x3/uL (4.8-10.8)
[2020-12-28 07:39] LABS: HEMATOCRIT 19.2 % (42.0-54.0); HEMOGLOBIN 6.3 g/dL (13.5-17.5)
[2020-12-28 08:36] VITALS: BP 149/74
[2020-12-28 09:07] LABS: BILIRUBIN - DIRECT 5.24 mg/dL (0.00-0.30); BILIRUBIN - INDIRECT 1.39 mg/dL (0.00-1.00); BILIRUBIN - TOTAL 6.63 mg/dL (0.2-1.3); PROTEIN - SERUM 5.4 g/dL (6.4-8.2)
[2020-12-28 13:36] VITALS: BP 127/68
--- NOTE | 2020-12-28 13:43 | NUR ---
RECEIVED FROM RECOVERY BACK TO ROOM. HEMOSPLIT TO LEFT NECK IN PLACE. SCANT AMOUNT OF BLOODY DRAINAGE NOTED FROM SITE. PT REQUESTING MEAL AT THIS TIME. CL WITHIN REACH. ENCORUAGED TO CALL WITH NEEDS.
--- NOTE | 2020-12-28 14:32 | NUR ---
Nutrition Follow-up: ESRD on HD. Had hemosplit placed today. Getting blood transfusion today. Diet: Renal PO intake: ~46% average x last 6 meals Last BM: 12/27/20 x 2 Wt: 217# (12/03/20) Meds noted: reglan, albumin, SSI, MVI, thiamin Labs noted: K 3.4(L), Na 133(L), BUN 43(H), Cr 6.8(H), GFR 9(L) Recommend continue current diet. Will continue to honor food preferences within diet restrictions. Needs new weight. Recommend appetite stimulant as medically feasible. RD will follow-up 01/01/21.
[2020-12-28 17:00] VITALS: BP 147/84
[2020-12-28 20:00] VITALS: BP 119/75
[2020-12-29] VITALS: BP 126/78
--- NOTE | 2020-12-29 03:32 | NUR ---
pt was in bed resting. nurse was given report on hemispilit site and it bleeding. nurse found area to have gauze saturated in blood. sandbag was in placed and more gauze was placed. nurse came back to find the gauze that was placed to be completely saturated with blood. nurse paged surgeon that completed procedure. dr. juarez returned call and was informed about situation. nurse was told to apply pressure dressing and perform reverse trendelenburg positon. nurse performed those actions but blood was still coming from site. nurse jeanine h&h, which resulted to 6.0 and 18.0. nurse notified national flatbed truck driver physician again. another nurse came to apply another pressure dressing onto site. nurse went to reassesss pressure dressing to find blood saturated norberto bandage.
[2020-12-29 04:00] VITALS: BP 143/86
[2020-12-29 06:38] LABS: INR 1.31 (0.85-1.17); PROTIME 15.1 SECONDS (11.6-15.0)
[2020-12-29 06:46] LABS: ANION GAP 14.2 mmol/L (8-16); CALCIUM 8.7 mg/dL (8.5-10.1); CARBON DIOXIDE 25.1 mmol/L (21.0-32.0); CREATININE - SERUM 7.9 mg/dL (0.6-1.3); PHOSPHOROUS 5.4 mg/dL (2.5-4.9); POTASSIUM - SERUM 4.3 mmol/L (3.5-5.1)
--- NOTE | 2020-12-29 07:15 | NUR ---
REC'D IN BED AWAKE AND ALERT. RESP EVEN AND UNLABORED WITH NO DISTRESS NOTED. CAN EXPRESS NEEDS AND WANTS. NO C/O NOTED OR VOICED. ASSESSMENT COMPLETED AT THIS TIME. C/L IN REACH AT BEDSIDE.
[2020-12-29 07:36] LABS: BASOPHILS 0.1 % (0-2); EOSINOPHILS 0 % (0-7); HEMATOCRIT 20.6 % (42.0-54.0); IMMATURE GRANULOCYTES 0.2 % (0-5); LYMPHOCYTE ABS# 1.01 10x3/uL (1.32-3.57); LYMPHOCYTES 8.4 % (15-50); MCH 29.7 pg (26.0-34.0); MCV 87.3 fL (80.0-100.0); MEAN PLATELET VOLUME 8.9 fL (7.4-10.4); MONOCYTES 5.5 % (2-11); NEUTROPHIL ABS# 10.26 10x3/uL (1.78-5.38); NEUTROPHILS 85.8 % (40-80); PLATELET COUNT 144 10x3/uL (130-400); RBC 2.36 10x6/uL (4.20-6.10)
--- NOTE | 2020-12-29 08:17 | NUR ---
DR. LOPEZ NOTIFIED OF PT HGB @ 7.0 WITH RESULT BEING 6.0 ON YESTERDAY. REC'D NEW ORDERS FOR TO TRANSFUSE 1 UNIT OF PRBC WITH DAILYSIS.
[2020-12-29 08:26] VITALS: BP 123/73
--- NOTE | 2020-12-29 09:30 | NUR ---
PRESSURE DRESSING APPLIED AT THIS TIME TO AIDE IN STOPPING THE BLEEDING FROM HEMISPLIT SITE.
[2020-12-29 12:43] VITALS: BP 109/71
--- NOTE | 2020-12-29 13:00 | NUR ---
SPOKE WITH DR. BEAVERS AT THIS TIME ABOUT PT HEMOSPLIT SITE CONTINUES TO OOZE BLOOD WITH DRESSING REINFORCED X [address] BEAVERS INQUIRED ABOUT WHERE PT WAS AND THIS NURSE INFORMED HIM THAT HE WAS AT DAILYSIS AT THIS TIME. SO DR. BEAVERS STATED THAT HE WILL CATCH HIM THERE.
--- NOTE | 2020-12-29 14:54 | NUR ---
ASSISTED PATIENT TO BEDSIDE COMODE WITH RN. APTIENT ABLE TO TRANSFER WITH MAXIMUM 2 PERSON ASSIST AND COACHING. PATIENT HAD LARGE BM, VERY DARK, ASSISTED PATIENT BACK TO BED WITH ASSISTANCE OF PHYSICAL THERAPIST. CONTINUE WITH PLAN OF CARE
--- NOTE | 2020-12-29 17:13 | NUR ---
DALIA JOINER WAS CALLED ABOUT PT CONTINUE TO BLEED FROM HEMISPLIT SITE. SHE CAME TO ASSESS PT AND SHE NOTIFIED DR. BEAVERS WELL OF PT CONDITION. NO NEW ORDERS NOTED AT THIS TIME JUST TO CONTINUE TO APPLYING PRESSURE DRESSING TO SITE AT THIS TIME.
--- NOTE | 2020-12-29 17:35 | NUR ---
PRESSURE DRESSING APPLIED AT THIS TIME TO AIDE IN STOPPING THE BLEEDING FROM HEMISPLIT SITE.
[2020-12-29 20:00] VITALS: BP 118/72
[2020-12-30 04:00] VITALS: BP 137/80
--- NOTE | 2020-12-30 06:37 | NUR ---
PRESSURE DRESSING WAS REAPPLIED EARLY THIS AM.
[2020-12-30 07:01] LABS: BASOPHILS 0.3 % (0-2); EOSINOPHILS 3.6 % (0-7); IMMATURE GRANULOCYTES 0.1 % (0-5); LYMPHOCYTE ABS# 1.29 10x3/uL (1.32-3.57); LYMPHOCYTES 13.2 % (15-50); MCH 28.8 pg (26.0-34.0); MCHC 33.5 g/dL (31.0-37.0); MEAN PLATELET VOLUME 8.8 fL (7.4-10.4); MONOCYTES 9.2 % (2-11); NEUTROPHIL ABS# 7.17 10x3/uL (1.78-5.38); NEUTROPHILS 73.6 % (40-80); PLATELET COUNT 148 10x3/uL (130-400); RBC 2.22 10x6/uL (4.20-6.10); RDW 21.4 % (11.5-14.5); WBC 9.8 10x3/uL (4.8-10.8)
[2020-12-30 07:28] LABS: HEMATOCRIT 19.1 % (42.0-54.0); HEMOGLOBIN 6.4 g/dL (13.5-17.5)
--- NOTE | 2020-12-30 07:30 | NUR ---
REC'D IN BED AWAKE AND ALERT. RESP EVEN AND UNLABORED WITH NO DISTRESS NOTED CAN EXPRESS NEEDS AND WANTS. NO C/O NOTED OR VOICED. ASSESSMENT COMPLETED AT THIS TIME. C/L IN REACH AT BEDSIDE.
[2020-12-30 07:41] LABS: ALBUMIN 2.7 g/dL (3.4-5.0); ANION GAP 16.6 mmol/L (8-16); BILIRUBIN - DIRECT 4.16 mg/dL (0.00-0.30); BILIRUBIN - TOTAL 5.26 mg/dL (0.2-1.3); CALCIUM 8.9 mg/dL (8.5-10.1); CARBON DIOXIDE 24.5 mmol/L (21.0-32.0); CREATININE - SERUM 6.9 mg/dL (0.6-1.3); POTASSIUM - SERUM 4.1 mmol/L (3.5-5.1); PROTEIN - SERUM 5.9 g/dL (6.4-8.2); URIC ACID 5.8 mg/dL (2.6-7.2); VANCOMYCIN - RANDOM 16.3 ug/mL (10.0-20.0)
[2020-12-30 07:47] LABS: INR 1.21 (0.85-1.17); PROTIME 14.2 SECONDS (11.6-15.0)
[2020-12-30 08:14] VITALS: BP 120/76
[2020-12-30 11:11] LABS: HEPATITIS C ANTIBODY <0.1 S/CO RAT (0.0-0.9)
--- NOTE | 2020-12-30 11:28 | OP ---
PATIENT NAME: BILL MCKAY MEDICAL RECORD: [id number] :63 LOCATION:[id number] ADMISSION DATE:11/29/20 SURGEON: JOSE BEAVERS MD DATE OF OPERATION: 12/28/2020 PREOPERATIVE DIAGNOSES: 1. End-stage renal disease. 2. Alcoholism. 3. Right hip fracture. POSTOPERATIVE DIAGNOSES: 1. End-stage renal disease. 2. Alcoholism. 3. Right hip fracture. PROCEDURE: Left IJ 23 cm HemoSplit catheter placement. SURGEON: Jose Beavers MD DESCRIPTION OF PROCEDURE: The patient's left neck was prepped and draped in sterile fashion. Using ultrasound guidance, a needle was used to cannulate the left internal jugular vein. The guidewire was advanced with ease. Fluoroscopy was used to note that the wire was in good position in the venous system. A skin incision was made on the left superior lateral chest and the catheter was tunneled between this and the wire exit site. The multiple dilators were placed over the wires followed by the dilator trocar device. The dilator and wire were removed and the catheter tips were advanced through the trocar. The trocar was then removed and the catheter was pulled back into the tips rested in the superior vena cava. The catheter aspirated nonpulsatile dark blood and flushed easily with heparinized saline. The catheter was sutured in place with 3-0 nylons and the skin incisions were closed with subcutaneous 5-0 Monocryl. COMPLICATIONS: None. CONDITION: Stable. ANESTHESIA: General endotracheal. BLOOD LOSS: Minimal. TRANSINT:[id number] Voice Confirmation ID: [id number] DOCUMENT ID: [id number] JOSE BEAVERS MD at 1128 CC: [id number] DICTATION DATE: 12/28/20 1306 OPERATIONAL TRAINER: 12/28/20 1628 ADM IN [place] [id number] [place] [address]
[2020-12-30 12:19] VITALS: BP 142/75
[2020-12-30 14:30] LABS: % SATURATION 40 % (15-55); IRON 63 ug/dl (35-150); TOTAL IRON BIND CAPACITY 155 ug/dl (260-445); UNSAT IRON BIND CAPACITY 92 ug/dl (150-375)
--- NOTE | 2020-12-30 15:05 | NUR ---
OT NOTE: REFUSED TMT ON THIS DAY. SARAH ANDERSON, OTR/L
[2020-12-30 20:00] VITALS: BP 135/75
[2020-12-31] VITALS: BP 132/82
[2020-12-31 01:37] LABS: BILIRUBIN NEGATIVE (NEGATIVE); KETONE NEGATIVE (NEGATIVE); NITRITE NEGATIVE (NEGATIVE); UROBILINOGEN NORMAL mg/dL (< 2)
[2020-12-31 01:39] LABS: BACTERIA MODERATE HPF (NONE SEEN); SQUAMOUS EPITHELIAL 0-5 HPF (0-4)
[2020-12-31 04:00] VITALS: BP 114/69
[2020-12-31 06:10] LABS: BASOPHILS 0.2 % (0-2); EOSINOPHILS 5.4 % (0-7); IMMATURE GRANULOCYTES 0.2 % (0-5); LYMPHOCYTE ABS# 1.18 10x3/uL (1.32-3.57); LYMPHOCYTES 12.9 % (15-50); MCH 29.8 pg (26.0-34.0); MCHC 34.2 g/dL (31.0-37.0); MEAN PLATELET VOLUME 9.1 fL (7.4-10.4); MONOCYTES 11.9 % (2-11); NEUTROPHIL ABS# 6.35 10x3/uL (1.78-5.38); NEUTROPHILS 69.4 % (40-80); PLATELET COUNT 119 10x3/uL (130-400); RDW 17.8 % (11.5-14.5); WBC 9.2 10x3/uL (4.8-10.8)
[2020-12-31 06:19] LABS: HEMOGLOBIN 8.9 g/dL (13.5-17.5); RBC 2.99 10x6/uL (4.20-6.10)
[2020-12-31 06:33] LABS: ANION GAP 13.6 mmol/L (8-16); CALCIUM 8.4 mg/dL (8.5-10.1); CARBON DIOXIDE 26.7 mmol/L (21.0-32.0); PHOSPHOROUS 4.2 mg/dL (2.5-4.9)
[2020-12-31 06:35] LABS: CREATININE - SERUM 5.1 mg/dL (0.6-1.3); POTASSIUM - SERUM 3.3 mmol/L (3.5-5.1)
[2020-12-31 06:39] LABS: INR 1.3 (0.85-1.17)
--- NOTE | 2020-12-31 07:24 | NUR ---
PATIENCE HAD PAIN MANAGED WITH THE PRESCRIBED PAIN MEDICATION, HIS TRIALYSIS CATHETER DRESSING WAS CHANGED. HE APPEARED TO REST WELL.
[2020-12-31 08:14] VITALS: BP 104/67
--- NOTE | 2020-12-31 10:00 | NUR ---
picc line dressing applied to left subclavian hemisplit. Pressure dressing removed with bloody discharge. tolerated well. cl in reach. wctm
--- NOTE | 2020-12-31 11:10 | NUR ---
call placed to dr cooper regarding temp and possible cxr. none since 12/19.
--- NOTE | 2020-12-31 12:03 | MORECARE ---
CASE MANAGEMENT DISCHARGE SUMMARY PATIENT: BILL MCKAY UNIT: [id number] ADM DATE: 11/29/20 AGE: 55 : 63 SEX: M ROOM/BED: [facility] AUTHOR: RAÚL,DOC PHYSICIAN: REFERRING PHYSICIAN: KENNY LOPEZ MD DATE OF SERVICE: 12/31/20 Case Management Discharge Planning Summary DCP REVIEW SUMMARY ANTICIPATED D/C DATE: EXPECTED LOS : 0 CASE STATUS: DCP Initiated INITIAL REVIEW: 12/29/2020 INITIAL REVIEWER: Flora Valdes FINAL DISCHARGE DISPOSITION: : FINAL REVIEWER: FINAL REVIEW DATE: DCP Focus Questions & Answers - Added on: QUESTION: ANSWER : PATIENT: BILL MCKAY ENCOUNTER: [id number] MEDICAL RECORD#: [id number] ADMISSION DATE: 11/29/2020 DISCHARGE DATE: ATTENDING MD: KENNY MCKNIGHT : AGE: 55 MARITAL STATUS: S DC PLAN ID: [id number] FACILITY: [facility] PRINTED ON: 12/31/20 12:03 CT All edits/amendments must be made on the electronic document DICTATION DATE: 12/31/20 120 ALCOHOLIC COUNSELOR: DM 12/31/20 1203 RPT#: [id number] DC DATE: STATUS: ADM IN [facility] [address] [place] [address] END OF REPORT
[2020-12-31 12:24] VITALS: BP 127/73
[2020-12-31 14:25] LABS: KETONE NEGATIVE (NEGATIVE); NITRITE NEGATIVE (NEGATIVE)
[2020-12-31 14:26] LABS: BACTERIA FEW HPF (NONE SEEN); BILIRUBIN NEGATIVE (NEGATIVE); SQUAMOUS EPITHELIAL OCC HPF (0-4); UROBILINOGEN 4 mg/dL (< 2); WHITE CELLS - URINE RARE HPF (0-1)
--- NOTE | 2020-12-31 14:45 | NUR ---
UA AND CULTURE GOTTEN BY IN AND OUT CATH VIA REPAIR DEPARTMENT SUPERVISOR AND INSTRUCTOR. PT REQUESTED AND RECIEVED A DIET SPRITE. CL IN REACH. ALBUMIN AND ABX RAN LATE TO ENSURE PROPER BLOOD CULTURES. WCTM
--- NOTE | 2020-12-31 15:56 | NUR ---
PATIENT REFUSED ALL MOBILITY.
--- NOTE | 2020-12-31 18:30 | NUR ---
dressing change to right lower hip. tolerated well. yellow eschar on insicion.
[2020-12-31 18:46] VITALS: BP 133/71
[2020-12-31 20:00] VITALS: BP 150/81
[2021-01-01] VITALS: BP 145/77
[2021-01-01 04:00] VITALS: BP 153/80
--- NOTE | 2021-01-01 04:25 | NUR ---
I have reviewed this patient and I concur with the Shift Assessment completed by the Licensed Practical Nurse today this shift.
[2021-01-01 08:07] LABS: BASOPHILS 0.2 % (0-2); EOSINOPHILS 8.1 % (0-7); HEMATOCRIT 25.8 % (42.0-54.0); HEMOGLOBIN 8.5 g/dL (13.5-17.5); IMMATURE GRANULOCYTES 0.2 % (0-5); LYMPHOCYTE ABS# 1.32 10x3/uL (1.32-3.57); LYMPHOCYTES 15.3 % (15-50); MCH 29.1 pg (26.0-34.0); MCHC 32.9 g/dL (31.0-37.0); MCV 88.4 fL (80.0-100.0); MEAN PLATELET VOLUME 8.9 fL (7.4-10.4); MONOCYTES 9.7 % (2-11); NEUTROPHIL ABS# 5.75 10x3/uL (1.78-5.38); NEUTROPHILS 66.5 % (40-80); PLATELET COUNT 134 10x3/uL (130-400); RBC 2.92 10x6/uL (4.20-6.10); RDW 18.1 % (11.5-14.5); WBC 8.7 10x3/uL (4.8-10.8)
[2021-01-01 08:15] LABS: INR 1.28 (0.85-1.17); PROTIME 14.8 SECONDS (11.6-15.0)
[2021-01-01 08:35] LABS: CALCIUM 8.6 mg/dL (8.5-10.1); CARBON DIOXIDE 28.1 mmol/L (21.0-32.0); CREATININE - SERUM 5.6 mg/dL (0.6-1.3); PHOSPHOROUS 4.1 mg/dL (2.5-4.9); POTASSIUM - SERUM 3.1 mmol/L (3.5-5.1); VANCOMYCIN - RANDOM 19.5 ug/mL (10.0-20.0)
[2021-01-01 09:23] VITALS: BP 167/74
--- NOTE | 2021-01-01 11:22 | MORECARE ---
CASE MANAGEMENT DISCHARGE SUMMARY PATIENT: BILL MCKAY UNIT: [id number] ADM DATE: 11/29/20 AGE: 55 : 63 SEX: M ROOM/BED: D.2237 AUTHOR: RAÚL,DOC PHYSICIAN: REFERRING PHYSICIAN: KENNY LOPEZ MD DATE OF SERVICE: 01/01/21 Case Management Discharge Planning Summary COMMENTS ENTERED DATE: 01/01/21 11:04 CT COMMENT TYPE: Discharge Planning REVIEWER: Flora Valdes CM SPOKE WITH PATIENT THIS MORNING ABOUT DISCHARGE PLANNING. HE IS VERY SHORT OF BREATH, HE IS ON OXYGEN VIA NASAL CANNULA. HE SAID HIS PLAN IS TO RETURN TO HOME WHEN HE IS ABLE TO STAND. I TALKED WITH HIM ABOUT HIS NEED FOR DIALYSIS AND IT WILL BE THREE TIMES PER WEEK. HE STATES GETTING TO AND FROM DIALYSIS WILL BE A PROBLEM. HE HAS MEDICAID, I WILL CALL AND SEE IF HE CAN GET SET UP WITH [facility] FOR TRANSPORT TO AND FROM DIALYSIS. I ALSO TALKED WITH HIM ABOUT THE IMPORTANCE OF WORKING WITH PHYSICAL THERAPY BECUASE IF HE IS NOT SAFE TO RETURN HOME HE WILL NEED TO GO TO A HALFWAY. HE STATES HE WILL BE ABLE TO GO HOME ONCE HE IS WELL. CM WILL FOLLOW AND ASSIST NEEDED. DCP REVIEW SUMMARY ANTICIPATED D/C DATE: EXPECTED LOS : 0 CASE STATUS: DCP Initiated INITIAL REVIEW: 12/29/2020 INITIAL REVIEWER: Flora Valdes FINAL DISCHARGE DISPOSITION: : FINAL REVIEWER: FINAL REVIEW DATE: DCP Focus Questions & Answers - Added on: QUESTION: ANSWER : PATIENT: BILL MCKAY ENCOUNTER: [id number] MEDICAL RECORD#: [id number] ADMISSION DATE: 11/29/2020 DISCHARGE DATE: ATTENDING MD: KENNY MCKNIGHT : AGE: 55 MARITAL STATUS: S DC PLAN ID: [id number] FACILITY: [facility] PRINTED ON: 01/01/21 11:21 CT All edits/amendments must be made on the electronic document DICTATION DATE: 01/01/211120 GRINDING WHEEL DRESSER: PAULINE 01/01/211120 RPT#: [id number] DC DATE: STATUS: ADM IN [facility] [address] [place] [address] END OF REPORT
--- NOTE | 2021-01-01 14:18 | NUR ---
Nutrition follow-up: Diet order: Renal PO intake 50% average at most meals Labs reviewed +BM Last wt recorded: 216# PO intake < 75% of meals most of the time RDN will order Nepro with meals Recommendations: Appetite stimulant Follow-up: 01/05/21
[2021-01-01 16:49] VITALS: BP 131/74
[2021-01-01 20:33] VITALS: BP 120/67
--- NOTE | 2021-01-02 03:00 | NUR ---
I have reviewed this patient and I concur with the Shift Assessment completed by the Licensed Practical Nurse today this shift.
[2021-01-02 05:47] VITALS: BP 144/76
[2021-01-02 06:57] LABS: BASOPHILS 0.1 % (0-2); EOSINOPHILS 8.7 % (0-7); HEMATOCRIT 28.8 % (42.0-54.0); HEMOGLOBIN 9.5 g/dL (13.5-17.5); IMMATURE GRANULOCYTES 0.1 % (0-5); LYMPHOCYTE ABS# 1.03 10x3/uL (1.32-3.57); LYMPHOCYTES 12.6 % (15-50); MCH 29.8 pg (26.0-34.0); MCV 90.3 fL (80.0-100.0); MEAN PLATELET VOLUME 9.1 fL (7.4-10.4); MONOCYTES 9.4 % (2-11); NEUTROPHIL ABS# 5.65 10x3/uL (1.78-5.38); NEUTROPHILS 69.1 % (40-80); RBC 3.19 10x6/uL (4.20-6.10); WBC 8.2 10x3/uL (4.8-10.8)
[2021-01-02 06:59] LABS: INR 1.38 (0.85-1.17); PROTIME 15.7 SECONDS (11.6-15.0)
[2021-01-02 07:13] LABS: PLATELET COUNT 200 10x3/uL (130-400)
[2021-01-02 07:27] LABS: ALBUMIN 2.7 g/dL (3.4-5.0); ANION GAP 14.3 mmol/L (8-16); BILIRUBIN - DIRECT 5.07 mg/dL (0.00-0.30); BILIRUBIN - INDIRECT 1.26 mg/dL (0.00-1.00); BILIRUBIN - TOTAL 6.33 mg/dL (0.2-1.3); CARBON DIOXIDE 26.9 mmol/L (21.0-32.0); CREATININE - SERUM 4.6 mg/dL (0.6-1.3); PHOSPHOROUS 3.5 mg/dL (2.5-4.9); POTASSIUM - SERUM 3.2 mmol/L (3.5-5.1); VANCOMYCIN - RANDOM 13.7 ug/mL (10.0-20.0)
[2021-01-02 09:00] VITALS: BP 127/70
--- NOTE | 2021-01-02 20:30 | NUR ---
LYING QUEITLY WITH NO DISTRESS NOT.O2 @ 6L PER NC ON. HEMOSPLIT TO LSC INTACT WITH DRESSING DRY. NO COMPLAITNS VOICED. CL IN REACH
[2021-01-02 21:25] VITALS: BP 113/73
--- NOTE | 2021-01-03 01:48 | NUR ---
I have reviewed this patient and I concur with the Shift Assessment completed by the Licensed Practical Nurse today this shift.
[2021-01-03 06:26] VITALS: BP 120/55
[2021-01-03 06:27] LABS: BASOPHILS 0.3 % (0-2); EOSINOPHILS 12.3 % (0-7); HEMOGLOBIN 9.5 g/dL (13.5-17.5); IMMATURE GRANULOCYTES 0.3 % (0-5); LYMPHOCYTE ABS# 0.87 10x3/uL (1.32-3.57); LYMPHOCYTES 12.3 % (15-50); MCH 29.6 pg (26.0-34.0); MCHC 32.8 g/dL (31.0-37.0); MCV 90.3 fL (80.0-100.0); MEAN PLATELET VOLUME 9.2 fL (7.4-10.4); MONOCYTES 11.9 % (2-11); NEUTROPHIL ABS# 4.43 10x3/uL (1.78-5.38); NEUTROPHILS 62.9 % (40-80); RBC 3.21 10x6/uL (4.20-6.10); RDW 17.7 % (11.5-14.5); WBC 7.1 10x3/uL (4.8-10.8)
[2021-01-03 06:31] LABS: PLATELET COUNT 253 10x3/uL (130-400)
[2021-01-03 06:49] LABS: ANION GAP 14.2 mmol/L (8-16); CALCIUM 8.9 mg/dL (8.5-10.1); CARBON DIOXIDE 26.2 mmol/L (21.0-32.0); CREATININE - SERUM 4.7 mg/dL (0.6-1.3); PHOSPHOROUS 3.4 mg/dL (2.5-4.9); POTASSIUM - SERUM 3.4 mmol/L (3.5-5.1)
[2021-01-03 07:00] LABS: INR 1.43 (0.85-1.17); PROTIME 16.2 SECONDS (11.6-15.0)
[2021-01-03 08:30] VITALS: BP 151/88
--- NOTE | 2021-01-03 09:10 | NUR ---
AAAOX4 UPON ENTERING. ADMINISTERED MEDICATION, NO DIFFICULTIES. ASSESSMENT PERFORMED. RESTING COMFORTABLY IN BED, DENIES ANY NEEDS AT THIS TIME. BED IN LOWEST POSITION, BED RAILS X2, CALL LIGHT WITHIN REACH. WILL CONTINUE POC.
--- NOTE | 2021-01-03 11:20 | NUR ---
RESTING COMFORTABLY. NO INSULIN PER SLIDING SCALE FOR SUGAR OF 102. DENIES NEEDS. WILL CONTINUE POC.
--- NOTE | 2021-01-03 11:59 | NUR ---
I have reviewed this patient and I concur with the Shift Assessment completed by the Licensed Practical Nurse today this shift.
[2021-01-03 12:11] VITALS: BP 133/79
--- NOTE | 2021-01-03 12:18 | NUR ---
PRN NORCO FOR PAIN AND PRN BENADRYL. NO DIFFICULTIES. RESTING IN BED. DENIES FURTHER NEEDS. WILL CONTINUE POC.
--- NOTE | 2021-01-03 16:51 | NUR ---
ADMINISTERED MEDICATION. NO INSULIN PER SLIDING SCALE FOR SUGAR OF 98. UPRIGHT IN BED. DENIES ANY NEEDS AT THIS TIME. WILL CONTINUE POC.
[2021-01-03 18:06] VITALS: BP 109/71
--- NOTE | 2021-01-03 18:34 | NUR ---
PRN KAYW AND VARGHESE FOR 10/10 IN LEGS. NO DIFFICULTIES. UPRIGHT IN BED. APPEARS COMFORTABLE. DENIES FURTHER NEEDS AT THIS TIME. WILL CONTINUE POC.
[2021-01-03 20:00] VITALS: BP 117/65
--- NOTE | 2021-01-03 20:33 | NUR ---
Assumed care of pt after report/rounds. Pt A&OX4. C/o pain but, states it is under control. Verbalized enjoying working with therapies today, "Even though it hurt". In bed resting at this time.
[2021-01-04] VITALS: BP 130/69
--- NOTE | 2021-01-04 03:55 | NUR ---
I have reviewed this patient and I concur with the Shift Assessment completed by the Licensed Practical Nurse today this shift.
[2021-01-04 04:00] VITALS: BP 128/72
--- NOTE | 2021-01-04 04:31 | NUR ---
Pt is in bed resting at this time. Pt did c/o pain once t/o the night with PRN meds given per order and request. Pt has otherwise rested well.
[2021-01-04 07:07] LABS: INR 1.43 (0.85-1.17); PROTIME 16.1 SECONDS (11.6-15.0)
[2021-01-04 07:16] LABS: ANION GAP 15.4 mmol/L (8-16); CALCIUM 8.8 mg/dL (8.5-10.1); CARBON DIOXIDE 25.8 mmol/L (21.0-32.0); CREATININE - SERUM 4.4 mg/dL (0.6-1.3); PHOSPHOROUS 4.1 mg/dL (2.5-4.9); POTASSIUM - SERUM 3.2 mmol/L (3.5-5.1)
[2021-01-04 07:23] LABS: BASOPHILS 0.3 % (0-2); EOSINOPHILS 12.8 % (0-7); HEMATOCRIT 28.5 % (42.0-54.0); HEMOGLOBIN 9.3 g/dL (13.5-17.5); IMMATURE GRANULOCYTES 0.3 % (0-5); LYMPHOCYTE ABS# 1.34 10x3/uL (1.32-3.57); LYMPHOCYTES 18.2 % (15-50); MCH 29.2 pg (26.0-34.0); MCHC 32.6 g/dL (31.0-37.0); MCV 89.6 fL (80.0-100.0); MEAN PLATELET VOLUME 9.3 fL (7.4-10.4); MONOCYTES 12.4 % (2-11); NEUTROPHIL ABS# 4.12 10x3/uL (1.78-5.38); RBC 3.18 10x6/uL (4.20-6.10); RDW 17.4 % (11.5-14.5); WBC 7.4 10x3/uL (4.8-10.8)
[2021-01-04 07:27] LABS: PLATELET COUNT 305 10x3/uL (130-400)
--- NOTE | 2021-01-04 07:30 | NUR ---
IN BED SLEEPING. BED LOW POSITION, CALL LIGHT IN REACH. WILL CONTINUE TO MONITOR.
[2021-01-04 09:06] VITALS: BP 149/89
[2021-01-04 12:52] VITALS: BP 131/77
--- NOTE | 2021-01-04 15:44 | NUR ---
CHANGED DRESSINGS TO LEFT HIP. COVERED WITH 4X4 AND ISLAND DRESSING. SITES FREE FROM SIGNS OF INFECTION. WILL CONTINUE TO MONITOR.
[2021-01-04 16:16] VITALS: BP 146/88
--- NOTE | 2021-01-04 16:50 | NUR ---
OT NOTE: PT WANTING TO GET TO BS COMMODE..DOES NOT LISTEN TO THERAPIST REGARDING R LE PLACEMENT PRIOR TO STANDING. PT WAS ABLE TO TRANSFER FROM BED TO BS COMMODE WITH MOD ASSIST (WHICH IS MUCH IMPROVED) WITHOUT USE OF AD.. CONT TO REQUIRE INCREASED ASSIST WITH SIT TO STAND DUE TO R HIP WEAKNESS. ABLE TO PERFORM PERINEAL HYGIENE WITH WASH CLOTH. IN ROOM ATTEMPTING TO ASSIST PT.. PT DEMAINDING AND DIRECTING THROUGHOUT TMT SESSION. PT FATIGUES EASILY. SOB WITH EXERTION. LINENS CHANGED WHILE PT WAS ON BS COMMODE. SARAH ANDERSON, OTR/L [phone]
[2021-01-04 20:00] VITALS: BP 148/84
--- NOTE | 2021-01-04 23:59 | NUR ---
I have reviewed this patient and I concur with the Shift Assessment completed by the Licensed Practical Nurse today this shift.
[2021-01-05] VITALS: BP 126/73
[2021-01-05 04:00] VITALS: BP 134/75
[2021-01-05 06:45] LABS: BASOPHILS 0.1 % (0-2); EOSINOPHILS 11.4 % (0-7); HEMATOCRIT 24.9 % (42.0-54.0); HEMOGLOBIN 8.1 g/dL (13.5-17.5); IMMATURE GRANULOCYTES 0.4 % (0-5); LYMPHOCYTE ABS# 1.41 10x3/uL (1.32-3.57); LYMPHOCYTES 21.1 % (15-50); MCH 29.3 pg (26.0-34.0); MCHC 32.5 g/dL (31.0-37.0); MCV 90.2 fL (80.0-100.0); MEAN PLATELET VOLUME 9.2 fL (7.4-10.4); MONOCYTES 11.4 % (2-11); NEUTROPHILS 55.6 % (40-80); PLATELET COUNT 298 10x3/uL (130-400); RBC 2.76 10x6/uL (4.20-6.10); RDW 17.3 % (11.5-14.5); WBC 6.7 10x3/uL (4.8-10.8)
[2021-01-05 06:47] LABS: CALCIUM 8.5 mg/dL (8.5-10.1); CARBON DIOXIDE 23.9 mmol/L (21.0-32.0); CREATININE - SERUM 4.3 mg/dL (0.6-1.3)
[2021-01-05 06:55] LABS: POTASSIUM - SERUM 2.9 mmol/L (3.5-5.1)
[2021-01-05 07:30] LABS: INR 1.6 (0.85-1.17); PROTIME 17.7 SECONDS (11.6-15.0)
--- NOTE | 2021-01-05 07:30 | NUR ---
REC'D IN BED AWAKE. RESP EVEN AND UNLABORED WITH NO DISTRESS NOTED. CAN EXPRESS NEEDS AND WANTS. NO C/O NOTED OR VOICED. ASSESSMENT COMPLETED. C/L IN REACH AT BEDSIDE.
[2021-01-05 08:30] VITALS: BP 150/81
--- NOTE | 2021-01-05 12:16 | NUR ---
I have reviewed this patient and I concur with the Shift Assessment completed by the Licensed Practical Nurse today this shift.
[2021-01-05 13:16] VITALS: BP 149/85
--- NOTE | 2021-01-05 13:53 | NUR ---
Nutrition reassessment: Diet order: Renal PO intake ~50% average of meals; po intake has decreased over the last few days Labs reviewed Dialysis on hold at this time Admit wt: 216# IBW: 190# +/-10% BMI: 27.8 Estimated nutritional needs: 2666-1472 kcal (25-30 kcal/kg IBW) 70-85 gm protein (0.8-1.0 gm/kg IBW) 6182-0159 ml fluid or per MD order Nutrition diagnosis: Inadequate oral intake R/T LOS in hospital AEB po intake now ~50% of meals. Nutrition goals: - PO intake will increase to =/> 75% of meals, snacks - Meet at least 75% of estimated fluid needs without fluid overload - Stable dry wt +/-5# - Glucose maintained at or near normal range Interventions: Will provide food choices with selective menus and honor food preferences within diet restrictions. RDN will order Nepro 2x/day to increase kcal/protein intake Recommendations: Please get a current wt to chart. Follow-up: 01/07/21
--- NOTE | 2021-01-05 15:56 | NUR ---
UPDATED WAS GIVEN TO PT GRAND MOTHER AT THIS TIME.
--- NOTE | 2021-01-05 16:25 | NUR ---
OT NOTE: PT COMPLETED BED MOB WITH MIN A. PT COMPLETD SIT TO STAND WITH MIN A. PT COMPLETED TOILET HYGIENE WITH MAX A. PT COMPLETED HAND HYGIENE WITH SETUP. [phone] KRISTY ELENA COTA
[2021-01-05 16:43] VITALS: BP 139/69
--- NOTE | 2021-01-05 17:09 | NUR ---
OT NOTE: BED MOB WITH MIN ASSIST FOR LE MGMT; EOB SITTING WITH GOOD BALANCE; TOILET TRANSFERS IWTH MIN ASSIST AND CONTINUED CUES FOR R LE PLACEMENT. MAX ASSIST WITH TOILET HYGIENE; STANDING BALANCE IS FAIR; TRANSFERRED BACK TO BED AND PT WAS VERY SOB. REQIRED APPROX 5 MIN TO RECOUP. SIT TO STAND AGAIN AND ABLE TO PERFORM MARCHING IN PLACE TO IMPROVE ENDURANCE AND BALANCE. LOB X 2 EPISODES.. SARAH ANDERSON, OTR/L [phone]
--- NOTE | 2021-01-05 18:04 | NUR ---
CALLED AND SPOKE WITH NURSES IN DAILYSIS AND WAS INFOMRED THAT PT IS TO BE EVALUATED DAILY TO SEE IF HE NEEDS DAILYSIS D/T KIDNEY FUNCTION IMPROVING. AND THAT DR. ANTUNEZ STATED TO HOLD DAILYSIS ON TODAY.
[2021-01-05 20:00] VITALS: BP 94/6468
[2021-01-06] VITALS (7 sets, daily range): BP systolic 123–149; BP diastolic 67–89
--- NOTE | 2021-01-06 03:39 | NUR ---
PATIENT'S PAIN WAS MANAGED WITH THE PRESCRIBED PAIN MEDICATIONS, HE VOICED NO CONCERN, HE APPEARED TO SLEEP WELL THROUGH THE NIGHT.
[2021-01-06 06:36] LABS: BASOPHILS 0.2 % (0-2); EOSINOPHILS 11.6 % (0-7); HEMATOCRIT 25.5 % (42.0-54.0); HEMOGLOBIN 8.3 g/dL (13.5-17.5); IMMATURE GRANULOCYTES 0.6 % (0-5); LYMPHOCYTE ABS# 1.55 10x3/uL (1.32-3.57); LYMPHOCYTES 23.3 % (15-50); MCH 29.3 pg (26.0-34.0); MCHC 32.5 g/dL (31.0-37.0); MCV 90.1 fL (80.0-100.0); MEAN PLATELET VOLUME 9.1 fL (7.4-10.4); MONOCYTES 10.4 % (2-11); NEUTROPHIL ABS# 3.59 10x3/uL (1.78-5.38); NEUTROPHILS 53.9 % (40-80); PLATELET COUNT 338 10x3/uL (130-400); RBC 2.83 10x6/uL (4.20-6.10); RDW 17.5 % (11.5-14.5); WBC 6.7 10x3/uL (4.8-10.8)
[2021-01-06 07:04] LABS: ALBUMIN 3.3 g/dL (3.4-5.0); ANION GAP 14.8 mmol/L (8-16); BILIRUBIN - DIRECT 2.31 mg/dL (0.00-0.30); BILIRUBIN - INDIRECT 0.79 mg/dL (0.00-1.00); BILIRUBIN - TOTAL 3.1 mg/dL (0.2-1.3); CARBON DIOXIDE 24.4 mmol/L (21.0-32.0); CREATININE - SERUM 3.8 mg/dL (0.6-1.3); POTASSIUM - SERUM 3.2 mmol/L (3.5-5.1); PROTEIN - SERUM 6.3 g/dL (6.4-8.2)
[2021-01-06 07:19] LABS: INR 1.59 (0.85-1.17); PROTIME 17.5 SECONDS (11.6-15.0)
--- NOTE | 2021-01-06 18:42 | NUR ---
OT NOTE: PT REQUIRED THERAPEUTIC USE OF SELF. PT EXHIBITED SELF LIMITING BEHAVIOR. PT IS IMPULSIVE AND REQUIRED CUES FOR INCREASED SAFETY. PT COMPLETED ADL TSF WITH CGA-MIN A FOR BED TO BSC . PT ATTEMPTED TOILET HYGIENE. PT REQUIRED MAX A FOR LB HYGIENE TASKS. PT COMPLETED UB HYGIENE TASKS WITH SETUP. PT CUED FOR PROPER FOOT PLACEMENT DURING SIT TO STAND . [phone] THANK YOU,MARITA JACK
[2021-01-07 04:00] VITALS: BP 142/82
[2021-01-07 06:18] LABS: BASOPHILS 0.3 % (0-2); EOSINOPHILS 9.7 % (0-7); HEMATOCRIT 26.8 % (42.0-54.0); HEMOGLOBIN 8.8 g/dL (13.5-17.5); IMMATURE GRANULOCYTES 0.6 % (0-5); LYMPHOCYTE ABS# 1.66 10x3/uL (1.32-3.57); MCH 29.6 pg (26.0-34.0); MCHC 32.8 g/dL (31.0-37.0); MCV 90.2 fL (80.0-100.0); MEAN PLATELET VOLUME 8.9 fL (7.4-10.4); MONOCYTES 11.7 % (2-11); NEUTROPHIL ABS# 3.71 10x3/uL (1.78-5.38); NEUTROPHILS 53.7 % (40-80); PLATELET COUNT 391 10x3/uL (130-400); RBC 2.97 10x6/uL (4.20-6.10); RDW 17.6 % (11.5-14.5); WBC 6.9 10x3/uL (4.8-10.8)
[2021-01-07 06:31] LABS: ANION GAP 15.6 mmol/L (8-16); CALCIUM 8.9 mg/dL (8.5-10.1); CARBON DIOXIDE 24.1 mmol/L (21.0-32.0); CREATININE - SERUM 3.4 mg/dL (0.6-1.3)
[2021-01-07 06:32] LABS: POTASSIUM - SERUM 3.7 mmol/L (3.5-5.1)
--- NOTE | 2021-01-07 07:02 | NUR ---
PATIENT'S PAIN WAS MANAGED WITH THE PRESCRIBED PAIN MEDICATION, HE HAD HIS SURGICAL BATH FOR HIS PROCEDURE TODAY, HE'S CURRENTLY RESTING IN BED.
--- NOTE | 2021-01-07 07:06 | NUR ---
PATIENT WITHOUT DISTRESS. BED CHANGE BY MOHINI LIMA. CALL LIGHT IN REACH
[2021-01-07 07:12] LABS: INR 1.51 (0.85-1.17); PROTIME 16.8 SECONDS (11.6-15.0)
--- NOTE | 2021-01-07 07:54 | NUR ---
LEFT HEMOSPLIT DRESSING CHANGED USING WIRELESS TELEGRAPHER. PATIENT TOLERATED WELL.
[2021-01-07 09:00] VITALS: BP 140/76
[2021-01-07 12:17] VITALS: BP 140/74
--- NOTE | 2021-01-07 12:54 | NUR ---
OFF FLOOR AT THIS TIME TO SURGERY SUITE. STABLE CONDITON UPON DEPARTURE.
--- NOTE | 2021-01-07 13:38 | NUR ---
Nutrition follow-up: Pt to surgery today; NPO PO intake of low sodium: ~50-75% of meals Labs reviewed Dailysis stopped due to improving kidney function No new wt since 12/03/20 +BM Recommendations: Please get a current wt to chart Resume low sodium diet after surgery RDN follow-up: 01/12/21
[2021-01-07 14:45] VITALS: BP 142/85
[2021-01-07 16:09] VITALS: BP 132/73
[2021-01-07 20:00] VITALS: BP 139/79
[2021-01-08] VITALS: BP 125/75
--- NOTE | 2021-01-08 02:44 | NUR ---
PT AWAKE IN BED WATCHING TV. PT COMPLAINED OF FOOT PAIN. PAIN MEDICATION WAS ADMINISTERED. NO OTHER DISTRESS NOTED. WOUND VAC IN PLACE. ABLE TO VOICE WANTS AND NEEDS. BED IN LOWEST POSITION WITH CALL LIGHT IN REACH.
[2021-01-08 04:00] VITALS: BP 130/76
[2021-01-08 05:29] LABS: BASOPHILS 0.2 % (0-2); EOSINOPHILS 0.1 % (0-7); HEMATOCRIT 26.4 % (42.0-54.0); HEMOGLOBIN 8.5 g/dL (13.5-17.5); IMMATURE GRANULOCYTES 0.3 % (0-5); LYMPHOCYTE ABS# 1.36 10x3/uL (1.32-3.57); LYMPHOCYTES 11.4 % (15-50); MCH 29.3 pg (26.0-34.0); MCHC 32.2 g/dL (31.0-37.0); MEAN PLATELET VOLUME 8.8 fL (7.4-10.4); MONOCYTES 5.9 % (2-11); NEUTROPHILS 82.1 % (40-80); PLATELET COUNT 396 10x3/uL (130-400); RDW 17.7 % (11.5-14.5)
[2021-01-08 05:41] LABS: INR 1.48 (0.85-1.17); PROTIME 16.6 SECONDS (11.6-15.0); WBC 11.9 10x3/uL (4.8-10.8)
[2021-01-08 05:48] LABS: CALCIUM 8.5 mg/dL (8.5-10.1); CARBON DIOXIDE 22.1 mmol/L (21.0-32.0); CREATININE - SERUM 3.4 mg/dL (0.6-1.3); POTASSIUM - SERUM 4.1 mmol/L (3.5-5.1)
--- NOTE | 2021-01-08 07:50 | NUR ---
RECIEVED BEDSIDE REPORT. DENIES NEEDS AT THIS TIME. BED LOW POSITION, CALL LIGHT IN REACH. FREE FROM SIGNS OF DISTRESS. WILL CONTINUE TO MONITOR.
[2021-01-08 08:57] VITALS: BP 137/81
[2021-01-08 12:21] VITALS: BP 134/85
--- NOTE | 2021-01-08 14:01 | NUR ---
OT NOTE: PT PERFORMED BED MOB WITH SBA; SITTING BALANCE ON EOB WAS GOOD; INITIAL SIT TO STAND WITH WALKER REQUIRED MAX ASSIST X 2.. TOLERATED STANDING FOR APPROX 4 MIN WHILE LINENS WERE CHANGED. RETURNED TO SITTING WITH MAX ASSIST X 2, AND RESTED FOR SEVERAL MIN.. THEN WANTED TO USE BATHROOM. TRANSFER TO COMMODE WITH MOD ASSIST X 2. PT VERY WEAK.. INSTRUCTED PT TO PERFORM HIS OWN TOILET HYGIENE SINCE HE WOULD BE GOING HOME SOON..PT IRITATED BY THIS BUT HE WAS ABLE TO PERFORM WITHOUT ASSIST. TRANSFER BACK TO BED WITH MOD ASSIST. PT VERY SOB BUT RECOUPERATED QUICKLY. PT ABLE TO PERFORM PERINEAL CARE WITH WASH CLOTH WITH SET UP. SARAH ANDERSON, OTR/L [phone]
[2021-01-08 16:48] VITALS: BP 149/85
--- NOTE | 2021-01-08 16:49 | NUR ---
OT NOTE: PT COMPLETED SUPINE TO SIT WITH MIN A. PT COMPLETED EOB SITTING WITH SBA. PT COMPLETED BED TO BSC TSF WITH MOD A X2. PT COMPLETED TOILETING HYGIENE WITH MIN A. PT COMPLETED HAND HYGIENE WITH SETUP. PT REQUIRED CUES FOR INCREASED PARTICIPATION. PT IS ABLE TO FUNCTION AT A HIGHER LEVEL OF INDEPENDENCE WITH CUES FOR INCREASED PARTICIPATION. [phone] THANK YOU,MARITA JACK
--- NOTE | 2021-01-08 18:46 | NUR ---
IN BED. DENIES NEEDS AT THIS TIME. BED LOW POSITION, CALL LIGHT IN REACH. URINAL IN REACH. WILL CONTINUE TO REACH.
[2021-01-08 20:07] VITALS: BP 115/67
[2021-01-09 05:25] LABS: INR 1.58 (0.85-1.17); PROTIME 17.5 SECONDS (11.6-15.0)
[2021-01-09 05:29] LABS: BASOPHILS 0.3 % (0-2); EOSINOPHILS 1.6 % (0-7); HEMATOCRIT 23.6 % (42.0-54.0); HEMOGLOBIN 7.6 g/dL (13.5-17.5); IMMATURE GRANULOCYTES 1.6 % (0-5); LYMPHOCYTE ABS# 1.62 10x3/uL (1.32-3.57); LYMPHOCYTES 16.2 % (15-50); MCH 29.2 pg (26.0-34.0); MCHC 32.2 g/dL (31.0-37.0); MCV 90.8 fL (80.0-100.0); MEAN PLATELET VOLUME 8.9 fL (7.4-10.4); MONOCYTES 10.9 % (2-11); NEUTROPHIL ABS# 6.97 10x3/uL (1.78-5.38); NEUTROPHILS 69.4 % (40-80); PLATELET COUNT 362 10x3/uL (130-400)
[2021-01-09 05:42] LABS: ANION GAP 16.7 mmol/L (8-16); CALCIUM 8.7 mg/dL (8.5-10.1); CARBON DIOXIDE 21.3 mmol/L (21.0-32.0); CREATININE - SERUM 2.9 mg/dL (0.6-1.3)
[2021-01-09 06:39] VITALS: BP 133/88
--- NOTE | 2021-01-09 07:37 | NUR ---
0700 BEDSIDE REPORT RECEIVED AWAKE ALERT IN BED ANSWERS ALL QUESTION APPROPRIATELY WOUND VAC DRAINING FROM 2 SITES DRAINING EFFECTIVELY HEMESPSLIT TO RIGHT C/W INTACT RIGHT HAND AND FOREARM S/L SITES SATISFACTORY
[2021-01-09 08:38] VITALS: BP 133/81
--- NOTE | 2021-01-09 12:00 | OP ---
PATIENT NAME: BILL FERREIRA MEDICAL RECORD: [id number] :63 LOCATION:[facility] ADMISSION DATE:11/29/20 SURGEON: ETHAN BLUM MD DATE OF OPERATION: 01/07/2021 PREOPERATIVE DIAGNOSES: 1. Surgical wound dehiscence, right hip. 2. Right hip infection. 3. History of intramedullary nailing, right femur. POSTOPERATIVE DIAGNOSES: 1. Surgical wound dehiscence, right hip. 2. Right hip infection. 3. History of intramedullary nailing, right femur. PROCEDURE PERFORMED: 1. Incision and debridement, right hip wounds (skin, subcutaneous tissue, muscle). 2. Application of wound VAC, right hip (greater than 50 cm-squared). INDICATIONS FOR THE PROCEDURE: Mr. Ferreira is a 55-year-old male who underwent cephalomedullary nailing for a right subtrochanteric femur fracture approximately 5 weeks ago. His postoperative course has been complicated with multisystem organ failure, but he is beginning to do better. He has continued to have drainage from the mid-thigh and proximal wound of his hip since surgery. The drainage has always been serous to serosanguineous type drainage. Cultures were obtained from the proximal wound that are positive for Enterobacter. Given the amount of time since his surgery, I believe he would benefit from I&D of these wounds with wound VAC placement and potential closure. Risks, benefits and alternatives of surgery were discussed with the patient and consent was obtained. DESCRIPTION OF PROCEDURE: The patient was met in the holding area where his identity and confirmation of the procedure was performed. The right lower extremity was marked. He was taken to the operating room where he was placed supine on the operating table and anesthesia was administered. The right hip was then prepped and draped in a sterile fashion. The patient received preoperative antibiotics and timeout was performed before initiating the case. On initiation of the case, the wounds were inspected. The mid-thigh wound was palpated and noted to have some dark sanguineous drainage. The proximal wound also was opened with a yellow serous drainage. We elected to open the mid-thigh wound and there was a large amount of deep fatty necrosis with resolving hematoma. Cultures were obtained from this area. The wound was irrigated thoroughly with saline. Fatty tissue was debrided with a rongeur and a tom elevator. The tissue necrosis extended down to the IT band and muscle was palpable, but I did not appreciate any deep fluid collection to the fracture site. Thorough irrigation and debridement of this area was performed. We then moved to the proximal hip incision. The skin edges were elliptically excised and again there was some evidence of deep fatty necrosis. This extended into the subcutaneous fatty layers. Tissue was debrided and irrigated thoroughly with saline. A wound VAC was then placed into the separate areas. The proximal wound measuring 4 x 2.5 cm and the distal wound measuring 9 x 5 cm. The wound VAC was placed and noted to have good compression in the operating room. He was then turned back over to anesthesia where he was awakened, extubated, and taken to recovery room in stable condition. OPERATIVE REPORT [id number] BILL FERREIRA POSTOPERATIVE PLAN: The patient is going to return to the floor for routine postoperative care. He will continue his IV antibiotics and plan to return to the operating room on Monday for repeat I&D with wound VAC placement versus closure. He needs to remain partial weightbearing on the right lower extremity, but can mobilize with physical therapy. We will also continue to follow his culture results. COMPLICATIONS: None. ANESTHESIA: General. ESTIMATED BLOOD LOSS: 25 mL. TRANSINT:[id number] Voice Confirmation ID: [id number] DOCUMENT ID: [id number] ETHAN BLUM MD at 1200 CC: [id number] DICTATION DATE: 01/07/21 1451 [place] MARKER: 01/07/21 1510 [place] [address]
--- NOTE | 2021-01-09 12:39 | NUR ---
1030 PHYSICAL THERAPY AMBULATING WITH PATIENT ACIDENTALLY PULLED OUT WOUND VAN TUBING RN REPLACED SUCTIION TUBEING TO WOUND SITE MACHINE WORKING SATISFACTORY
--- NOTE | 2021-01-09 12:39 | NUR ---
0800 ENCOURAGED IS USE SEE CHART
--- NOTE | 2021-01-09 12:42 | NUR ---
1230 NORCO AND BENADRYL GIVEN PO FOE PAIN LEVEL 10/10 PROVIDED 2 BLANKETS REQUESTED
[2021-01-09 12:43] VITALS: BP 152/91
--- NOTE | 2021-01-09 19:00 | NUR ---
BEDSIDE REPORT RECEIVED AND CARE OF PT ASSUMED. PT LYING IN LOW CARDENAS'S POSITION WITH EYES CLOSED. IV TO LEFT HAND AND LEFT FA SALINE LOCKED. LEFT HEMOSPLIT SALINE LOCKED. WOUND VAC IN PLACE ON RIGHT HIP INTACT WITH NO LEAKAGE ALARMS. WILL MONITOR FOR NEEDS.
[2021-01-09 20:38] VITALS: BP 141/77
--- NOTE | 2021-01-09 20:51 | NUR ---
HS MEDICATIONS GIVEN. FSBS 94 THIS CHECK REQUIRING NO COVERAGE PER SLIDING SCALE. PT EATING LEFT OVER FOOD FROM DINNER HS SNACK. WILL CONTINUE TO MONITOR FOR NEEDS.
--- NOTE | 2021-01-10 00:31 | NUR ---
GAVE NORCO PO AND BENADRYL PO PER PT REQUEST FOR ACHING PAIN IN RIGHT HIP AT LEVEL 9/10. WILL MONITOR FOR EFFECTIVENESS.
[2021-01-10 00:46] VITALS: BP 146/88
--- NOTE | 2021-01-10 02:50 | NUR ---
CHANGED ALL IV TUBING AND LABELED FOR NEXT CHANGE.
[2021-01-10 05:26] VITALS: BP 163/90
[2021-01-10 05:26] LABS: BASOPHILS 0.4 % (0-2); EOSINOPHILS 4.3 % (0-7); HEMATOCRIT 26.1 % (42.0-54.0); HEMOGLOBIN 8.3 g/dL (13.5-17.5); IMMATURE GRANULOCYTES 1.8 % (0-5); LYMPHOCYTE ABS# 2.11 10x3/uL (1.32-3.57); LYMPHOCYTES 20.9 % (15-50); MCH 29.1 pg (26.0-34.0); MCHC 31.8 g/dL (31.0-37.0); MCV 91.6 fL (80.0-100.0); MEAN PLATELET VOLUME 8.7 fL (7.4-10.4); MONOCYTES 11.6 % (2-11); NEUTROPHIL ABS# 6.18 10x3/uL (1.78-5.38); PLATELET COUNT 372 10x3/uL (130-400); RBC 2.85 10x6/uL (4.20-6.10); RDW 17.7 % (11.5-14.5); WBC 10.1 10x3/uL (4.8-10.8)
[2021-01-10 05:44] LABS: INR 1.65 (0.85-1.17); PROTIME 18.1 SECONDS (11.6-15.0)
[2021-01-10 05:47] LABS: ANION GAP 16.9 mmol/L (8-16); CALCIUM 8.8 mg/dL (8.5-10.1); CREATININE - SERUM 2.6 mg/dL (0.6-1.3); POTASSIUM - SERUM 3.9 mmol/L (3.5-5.1)
--- NOTE | 2021-01-10 07:45 | NUR ---
RECEIEVED BEDSIDE REPORT. IN BED, AROUSES TO VOICE. DENIES NEEDS AT THIS TIME. BED LOW POSITION, CALL LIGHT IN REACH. WILL CONTINUE TO MONITOR.
[2021-01-10 08:28] VITALS: BP 164/96
[2021-01-10 16:12] VITALS: BP 150/85
--- NOTE | 2021-01-10 17:47 | NUR ---
IN BED. RESTING. IV INFUSING PER MAR. BED LOW POSITION, CALL LIGHT IN REACH. WILL CONTINUE TO MONITOR.
[2021-01-10 23:34] VITALS: BP 134/88
--- NOTE | 2021-01-11 01:28 | NUR ---
I have reviewed this patient and I concur with the Shift Assessment completed by the Licensed Practical Nurse today this shift.
[2021-01-11 06:19] VITALS: BP 138/65
--- NOTE | 2021-01-11 07:18 | NUR ---
PATIENT REQUESTED PAIN MEDICATION AND BENADRYL THIS MORNING STATED IT IS LATE AND DUE AT 7:01. EXPLAINED TO PT THAT MEDICATION IS SCHEDULED NEEDED AND IS AVAILABLE AT THAT TIME NOT DUE. ADMINISTERED PRN PAIN MEDICATION REQUESTED. NO OTHER NEEDS VOICED, CONTINUE WITH PLAN OF CARE
[2021-01-11 08:56] VITALS: BP 143/84
--- NOTE | 2021-01-11 09:47 | NUR ---
I have reviewed this patient and I concur with the Shift Assessment completed by the Licensed Practical Nurse today this shift.
[2021-01-11 11:23] LABS: BASOPHILS 0.3 % (0-2); EOSINOPHILS 2.2 % (0-7); HEMATOCRIT 26.3 % (42.0-54.0); HEMOGLOBIN 8.6 g/dL (13.5-17.5); IMMATURE GRANULOCYTES 0.5 % (0-5); LYMPHOCYTE ABS# 2.46 10x3/uL (1.32-3.57); LYMPHOCYTES 21.3 % (15-50); MCH 29.7 pg (26.0-34.0); MCHC 32.7 g/dL (31.0-37.0); MCV 90.7 fL (80.0-100.0); MEAN PLATELET VOLUME 8.5 fL (7.4-10.4); MONOCYTES 8.4 % (2-11); NEUTROPHIL ABS# 7.77 10x3/uL (1.78-5.38); NEUTROPHILS 67.3 % (40-80); PLATELET COUNT 314 10x3/uL (130-400); RDW 17.9 % (11.5-14.5); WBC 11.6 10x3/uL (4.8-10.8)
[2021-01-11 11:35] LABS: C-REACTIVE PROTEIN 6.8 mg/dL (0.0-0.9); CARBON DIOXIDE 19.8 mmol/L (21.0-32.0); CREATININE - SERUM 2.2 mg/dL (0.6-1.3); POTASSIUM - SERUM 3.8 mmol/L (3.5-5.1)
[2021-01-11 11:39] LABS: INR 1.47 (0.85-1.17); PROTIME 16.5 SECONDS (11.6-15.0)
[2021-01-11 13:23] VITALS: BP 143/81
--- NOTE | 2021-01-11 13:28 | NUR ---
RECEIVED CALL TO PREOP PATIENT, ADMINISTERED PREOP MEDS AND PATIENT REQUESTED CHICKEN NOODLE SOUP AND TURKEY SANDWICH WELL JELLO WHEN HE GETS OUT. INFORMED PATIENT DEPNDING ON DR'S ORDERS I WILL DO MY BEST TO GET HIM WHAT I CAN. CONTINUE WITH PLAN OF CARE
[2021-01-11 16:04] VITALS: BP 143/87
--- NOTE | 2021-01-11 17:01 | NUR ---
OT NOTE: PT TO HAVE PROCEDURE. HOLD OT .
--- NOTE | 2021-01-11 18:26 | NUR ---
patient asleep with food tray in front of him, easily awakened and groggy and back to sleep easily. no bm today. continue with plan of care
[2021-01-11 20:00] VITALS: BP 140/85
[2021-01-12] VITALS: BP 126/87
[2021-01-12 04:00] VITALS: BP 142/88
[2021-01-12 05:32] LABS: BASOPHILS 0.3 % (0-2); EOSINOPHILS 0 % (0-7); HEMATOCRIT 24.2 % (42.0-54.0); HEMOGLOBIN 7.9 g/dL (13.5-17.5); IMMATURE GRANULOCYTES 0.7 % (0-5); LYMPHOCYTE ABS# 1.88 10x3/uL (1.32-3.57); LYMPHOCYTES 27.3 % (15-50); MCH 29.3 pg (26.0-34.0); MCHC 32.6 g/dL (31.0-37.0); MCV 89.6 fL (80.0-100.0); MEAN PLATELET VOLUME 9.2 fL (7.4-10.4); MONOCYTES 5.1 % (2-11); NEUTROPHIL ABS# 4.59 10x3/uL (1.78-5.38); NEUTROPHILS 66.6 % (40-80); PLATELET COUNT 292 10x3/uL (130-400); RDW 17.9 % (11.5-14.5)
[2021-01-12 05:33] LABS: WBC 6.9 10x3/uL (4.8-10.8)
[2021-01-12 05:42] LABS: ANION GAP 18.4 mmol/L (8-16); CALCIUM 8.7 mg/dL (8.5-10.1); CARBON DIOXIDE 17.3 mmol/L (21.0-32.0); CREATININE - SERUM 2.1 mg/dL (0.6-1.3); PRE-ALBUMIN 14.2 mg/dL (18.0-35.7)
[2021-01-12 05:44] LABS: POTASSIUM - SERUM 4.7 mmol/L (3.5-5.1)
--- NOTE | 2021-01-12 07:06 | NUR ---
PATIENT ASLEEP IN BED, EASILY AWAKENED FOR ASSESSMENT. PT QUESTIONED WHEN NEXT TIME FOR PAIN MEDICATION WOULD BE. ASSURED PATIENT I WILL BRING WITH MORNING MEDICATIONS, WOUND VAC IN PLACE, IV IN LEFT FA KVO, PATIENT ON RA, NO NEEDS VOICED, CONTINUE WITH PLAN OF CARE
--- NOTE | 2021-01-12 07:28 | NUR ---
I have reviewed this patient and I concur with the Shift Assessment completed by the Licensed Practical Nurse today this shift.
[2021-01-12 09:55] VITALS: BP 156/97
--- NOTE | 2021-01-12 11:15 | NUR ---
PT C/O ABD PAIN. CALLED JOHN SANDOVAL, ORDERED KUB, LABS. PT TOLERATED WELL. WILL CONTINUE TO MONITOR.
[2021-01-12 12:06] VITALS: BP 154/87
--- NOTE | 2021-01-12 14:50 | NUR ---
Nutrition reasessment: Diet: Renal PO intake ~75% of most meals Labs reviewed Admit WT: 216# IBW: 190# +/-10% +BM Pt s/p I&D with wound placement Estimated nutritional needs: 8539-9533 kcal (25-30 kcal/kg IBW) 70-85 gm protein (0.8-1.0 gm/kg*IBW) * pt with renal issuses - elevated BUN/Cr without dialysis at this time Nutrition diagnosis: Increased nutrient needs R/T wound with wound VAC AEB pt protein needs are increased for wound healing Nutrition Goals: - PO intake =/> 75% of meals, snacks - Meet at least 75% of estimated fluid needs - Stable dry wt +/-5# Interventions: Will continue to provide food choices with selective menus and honor food preferences within diet restrictions. Will offer Nepro nutritional supplemets with meals. Recommendations: Please get a current wt on pt RDN will follow-up pts progress towards goals: 01/18/21
[2021-01-12 17:28] VITALS: BP 154/78
--- NOTE | 2021-01-12 17:59 | NUR ---
OT NOTE: PT COMPLETED BED MOB WITH MIN A. PT COMPLETED BED TO BSC TSF WITH MIN A. PT REQUIRED MAX-TOTAL A FOR TOILET HYGIENE. PT REQUIRED SET UP FOR HAND HYGIENE. [id number] THANK YOU,MARITA JACK
--- NOTE | 2021-01-12 19:45 | NUR ---
RECEIVED BEDSIDE REPORT. PT LAYING IN BED A&O X4. PIV TO RIGHT FOREARM, PATENT AND INFUSING, NO REDNESS OR SWELLNIG. INCISION TO RIGHT HIP, DRSG C/D/I, WOUND VAC IN PLACE, DRAINING TO SUCTION. TELEMETRY IN PLACE, 85 SR. PT ABLE TO AMBULATE WITH 2 PERSON ASSIST. EDUCATED PT ON CL AND NEEDS, VERBALIZED UNDERSTANDING. BED LOW, CL IN REACH.
--- NOTE | 2021-01-12 19:52 | NUR ---
1500 ASSUMED CARE OF PATIENT CBS 108. NO INSULIN INDICATED
[2021-01-12 20:00] VITALS: BP 144/87
--- NOTE | 2021-01-12 20:35 | NUR ---
PT C/O PAIN IN HIP 05/25, PROVIDED MEDS PER ORDER, TOLERATED WELL. WILL CONTINUE TO MONITOR.
[2021-01-13] VITALS: BP 149/89
--- NOTE | 2021-01-13 03:16 | NUR ---
PT C/O PAIN IN HIP 06/25, PROVIDED MEDS PER ORDER, TOLERATED WELL. WILL CONTINUE TO MONITOR.
[2021-01-13 04:00] VITALS: BP 137/87
[2021-01-13 06:53] LABS: BASOPHILS 0.2 % (0-2); EOSINOPHILS 0.3 % (0-7); HEMATOCRIT 24.4 % (42.0-54.0); LYMPHOCYTE ABS# 3.01 10x3/uL (1.32-3.57); LYMPHOCYTES 27.4 % (15-50); MCH 29.3 pg (26.0-34.0); MCHC 32.8 g/dL (31.0-37.0); MCV 89.4 fL (80.0-100.0); MEAN PLATELET VOLUME 8.8 fL (7.4-10.4); MONOCYTES 8.5 % (2-11); NEUTROPHIL ABS# 6.87 10x3/uL (1.78-5.38); NEUTROPHILS 62.6 % (40-80); PLATELET COUNT 302 10x3/uL (130-400); RBC 2.73 10x6/uL (4.20-6.10); RDW 18.3 % (11.5-14.5)
[2021-01-13 07:26] LABS: ALBUMIN 4.2 g/dL (3.4-5.0); ANION GAP 19.6 mmol/L (8-16); BILIRUBIN - DIRECT 1.51 mg/dL (0.00-0.30); BILIRUBIN - INDIRECT 0.85 mg/dL (0.00-1.00); BILIRUBIN - TOTAL 2.36 mg/dL (0.2-1.3); CALCIUM 8.7 mg/dL (8.5-10.1); CARBON DIOXIDE 17.8 mmol/L (21.0-32.0); CREATININE - SERUM 1.8 mg/dL (0.6-1.3); POTASSIUM - SERUM 3.4 mmol/L (3.5-5.1)
--- NOTE | 2021-01-13 07:32 | NUR ---
PATIENT IS COMPLAINING OF ABDOMINAL PAIN AGAIN AND STATES HE WILL NOT BE ABLE TO EAT AND REQUESTED PAIN MEDICATION. MEDICATION NOT DUE/ AVAILABLE UNTIL 9AM. ENCOURAGE PATIENT TO CHANGE POSITIONS IT MAY BE GAS, HYPOACTIVE BOWEL SOUNDS. PATIENT IS NOT VERY PLEASANT THIS MORNING. CONTINUE WITH PLAN OF CARE
--- NOTE | 2021-01-13 08:24 | NUR ---
RECEIVED CALL FROM MARILYNN IN LAB, PATIENT MAG IS 0.9, RELAYED RESULTYS TO DR LOPEZ. ALSO REQUESTED THAT PATIENT PT BE COORDINATED WITH PATIENT PAIN MEDICATION FOR PATIENT TO HAVE PHYSICAL THERAPY 30 MINUTES AFTER RECIEVING PAIN MEDICATION. CONTINUE WITH PLAN OF CARE
[2021-01-13 08:38] VITALS: BP 156/86
--- NOTE | 2021-01-13 12:26 | NUR ---
CARE ASSUMED FROM SHANA WRIGHT. PT SLEEPING QUIETLY. CALL LIGHT WITHIN REACH.
--- NOTE | 2021-01-13 16:19 | NUR ---
OT NOTE: ATTEMPTED TO SEE PT IN PM..PT SITTING UP IN BED AND NURSING ABOUT TO CHANGE PROVIDE MEDS. UPON THERAPIST ENTERING ROOM, PT ALREADY STATING, "NO IM NOT DOING THERAPY TODAY.. I DONT FEEL GOOD"...ETC SARAH ANDERSON, OTR/L
--- NOTE | 2021-01-13 17:15 | NUR ---
PT BS 45, RECHECKED, 46. GAVE 1/2 AMP D5. RECHECKED AND IS 94. EDUCATION PROVIDED.
--- NOTE | 2021-01-13 18:27 | NUR ---
FSBS CHECKED PRIOR TO END OF SHIFT. BS 84. ENCOURAGED NUTRITION PRIOR TO NPO STATUS AFTER MIDNIGHT TONIGHT.
[2021-01-13 20:00] VITALS: BP 120/67
[2021-01-14] VITALS: BP 142/85
[2021-01-14 04:00] VITALS: BP 142/85; BP 150/81
[2021-01-14 06:06] LABS: BASOPHILS 0.2 % (0-2); EOSINOPHILS 0.5 % (0-7); HEMATOCRIT 24.6 % (42.0-54.0); HEMOGLOBIN 7.9 g/dL (13.5-17.5); IMMATURE GRANULOCYTES 1.1 % (0-5); LYMPHOCYTE ABS# 2.43 10x3/uL (1.32-3.57); LYMPHOCYTES 21.9 % (15-50); MCH 29.4 pg (26.0-34.0); MCHC 32.1 g/dL (31.0-37.0); MEAN PLATELET VOLUME 9.5 fL (7.4-10.4); MONOCYTES 10.4 % (2-11); NEUTROPHIL ABS# 7.33 10x3/uL (1.78-5.38); NEUTROPHILS 65.9 % (40-80); PLATELET COUNT 309 10x3/uL (130-400); RBC 2.69 10x6/uL (4.20-6.10); RDW 18.7 % (11.5-14.5); WBC 11.1 10x3/uL (4.8-10.8)
[2021-01-14 06:19] LABS: MCV 91.4 fL (80.0-100.0)
[2021-01-14 06:25] LABS: ANION GAP 18.5 mmol/L (8-16); CALCIUM 8.5 mg/dL (8.5-10.1); CARBON DIOXIDE 20.7 mmol/L (21.0-32.0); CREATININE - SERUM 1.7 mg/dL (0.6-1.3); POTASSIUM - SERUM 3.2 mmol/L (3.5-5.1)
--- NOTE | 2021-01-14 07:00 | NUR ---
PT STATES [facility] HAS $30 MISSING PER RN JOHN HI
--- NOTE | 2021-01-14 07:30 | NUR ---
SITTING UP IN BED WITH EYES OPEN, ALERT AND ORIENTED. IV LOCATED TO LEFT FOREARM CURRENTLY RUNNING NS @ KVO. DIALYSIS CATH TO LEFT. NO CURRENT S/S OF DISTRESS AT THIS TIME, DENIES CURRENT NEEDS, WILL CONT TO MONITOR.
[2021-01-14 08:21] VITALS: BP 145/66
[2021-01-14 12:08] VITALS: BP 159/85
--- NOTE | 2021-01-14 14:59 | NUR ---
PATIENT MAG IS 0.8, CALLED DR GENAO AND RECEIVED ORDERS FOR 1G OF MAG IV. SAIMA WITH PLAN OF CARE
[2021-01-14 17:39] VITALS: BP 176/89
--- NOTE | 2021-01-14 19:45 | NUR ---
RECIEVED BEDSIDE REPORT. PT LAYING IN BED A&O X4. PIV TO LEFT FOREARM, PATENT AND INFUSING, NO REDNESS OR SWELLING. INCISION TO RIGHT HIP, WOUND VAC IN PLACE, DRAINING TO SUCTION. BILAT HEELS, SKIN BREAKDOWN PRESENT. TELEMETRY IN PLACE, [address] PT ABLE TO AMBULATE WITH ASSIST TO BSC. EDUCATED PT ON CL AND NEEDS, VERBALIZED UNDERSTANDING. BED LOW, CL IN REACH.
[2021-01-14 20:00] VITALS: BP 128/72
[2021-01-15 04:00] VITALS: BP 132/78
[2021-01-15 06:08] LABS: BASOPHILS 0.3 % (0-2); EOSINOPHILS 0.6 % (0-7); HEMATOCRIT 26.4 % (42.0-54.0); HEMOGLOBIN 8.4 g/dL (13.5-17.5); IMMATURE GRANULOCYTES 1.2 % (0-5); LYMPHOCYTE ABS# 2.51 10x3/uL (1.32-3.57); LYMPHOCYTES 24.7 % (15-50); MCH 29.3 pg (26.0-34.0); MCHC 31.8 g/dL (31.0-37.0); MEAN PLATELET VOLUME 9.5 fL (7.4-10.4); MONOCYTES 9.7 % (2-11); NEUTROPHIL ABS# 6.46 10x3/uL (1.78-5.38); NEUTROPHILS 63.5 % (40-80); PLATELET COUNT 279 10x3/uL (130-400); RBC 2.87 10x6/uL (4.20-6.10); RDW 18.9 % (11.5-14.5); WBC 10.2 10x3/uL (4.8-10.8)
[2021-01-15 06:20] LABS: CALCIUM 8.8 mg/dL (8.5-10.1); CARBON DIOXIDE 20.9 mmol/L (21.0-32.0); CREATININE - SERUM 1.7 mg/dL (0.6-1.3)
[2021-01-15 07:10] LABS: MAGNESIUM - SERUM 1.6 mg/dL (1.8-2.4)
[2021-01-15 07:12] LABS: POTASSIUM - SERUM 2.9 mmol/L (3.5-5.1)
[2021-01-15 08:02] VITALS: BP 146/83
[2021-01-15 16:57] VITALS: BP 133/79
--- NOTE | 2021-01-15 20:00 | NUR ---
UP TO BSC WITH ASSIST. LARGE LIQUID BM. TEAGAN CARE GIVEN. ASSISTED BACK TO BED. WOUND VAC INTACT TO RIGHT HIP. IV TO LFA INTACT WITHOUT REDNESS OR EDEMA NOTED. CL IN REACH
[2021-01-16 05:52] VITALS: BP 151/91
[2021-01-16 06:53] LABS: BASOPHILS 0.3 % (0-2); HEMATOCRIT 25.3 % (42.0-54.0); HEMOGLOBIN 8.1 g/dL (13.5-17.5); IMMATURE GRANULOCYTES 0.7 % (0-5); LYMPHOCYTE ABS# 2.75 10x3/uL (1.32-3.57); LYMPHOCYTES 26.5 % (15-50); MCH 29.9 pg (26.0-34.0); MCV 93.4 fL (80.0-100.0); MEAN PLATELET VOLUME 9.9 fL (7.4-10.4); MONOCYTES 9.1 % (2-11); NEUTROPHIL ABS# 6.49 10x3/uL (1.78-5.38); NEUTROPHILS 62.4 % (40-80); PLATELET COUNT 245 10x3/uL (130-400); RBC 2.71 10x6/uL (4.20-6.10); RDW 19.4 % (11.5-14.5); WBC 10.4 10x3/uL (4.8-10.8)
[2021-01-16 07:20] LABS: ALBUMIN 4.3 g/dL (3.4-5.0); BILIRUBIN - DIRECT 1.11 mg/dL (0.00-0.30); BILIRUBIN - INDIRECT 1.26 mg/dL (0.00-1.00); BILIRUBIN - TOTAL 2.37 mg/dL (0.2-1.3); CALCIUM 9.2 mg/dL (8.5-10.1); CARBON DIOXIDE 20.6 mmol/L (21.0-32.0); CREATININE - SERUM 1.4 mg/dL (0.6-1.3); MAGNESIUM - SERUM 1.9 mg/dL (1.8-2.4); PROTEIN - SERUM 6.8 g/dL (6.4-8.2)
[2021-01-16 07:21] LABS: POTASSIUM - SERUM 4.6 mmol/L (3.5-5.1)
[2021-01-16 08:07] VITALS: BP 145/81
--- NOTE | 2021-01-16 08:59 | NUR ---
PT SITTING UP EATING BREAKFAST WATCHING TV, PT IS PLEASANT THIS MORNING, NO NEEDS AT THIS TIME
[2021-01-16 12:10] VITALS: BP 172/89
--- NOTE | 2021-01-16 13:45 | NUR ---
PT WAS IN WITH PT, STATES PT NOW TOLD THEM HE HAS STAIRS TO GET UP AT HOME, PT WAS TO GO HOME ONCE HE WALKED 10 STEPS, PT STATES PT IS NOT NEAR THAT GOAL, REHAB WOULD BE A GOOD OPTION AT THIS POINT
[2021-01-16 16:59] VITALS: BP 156/88
--- NOTE | 2021-01-16 19:27 | NUR ---
PATIENT UP TO BSC. ASSISTED PATIENT BACK TO BED. PATIENT HAD BM AND VOIDED 200ML. PATIENT REQUESTED PAIN MEDS WHEN AVAILABLE AND DENIES OTHER NEEDS AT THIS TIME. BED IN LOWEST POSITION AND CALL LIGHT IN REACH. ENCOURAGED PATIENT TO CALL WITH NEEDS.
[2021-01-16 20:00] VITALS: BP 157/85
--- NOTE | 2021-01-16 20:00 | NUR ---
ADMINISTERED MEDS PER ORDERS. PATIENT WAGNER WELL. ENCOURAGED TO CALL WITH NEEDS.
[2021-01-17 04:00] VITALS: BP 151/84
[2021-01-17 08:04] VITALS: BP 102/60; BP 151/89
[2021-01-17 11:35] VITALS: BP 160/94
--- NOTE | 2021-01-17 13:12 | NUR ---
REFUSED UPDRAFT [place]
[2021-01-17 16:00] VITALS: BP 158/82
[2021-01-17 20:00] VITALS: BP 161/81
--- NOTE | 2021-01-17 21:30 | NUR ---
WATCHING TV QUEITLY. NO DISTRESS NOTED. CL IN REACH
[2021-01-18] VITALS: BP 149/82
[2021-01-18 04:00] VITALS: BP 160/85
--- NOTE | 2021-01-18 04:32 | NUR ---
I have reviewed this patient and I concur with the Shift Assessment completed by the Licensed Practical Nurse today this shift.
--- NOTE | 2021-01-18 07:37 | NUR ---
RECIEVED BEDSIDE REPORT. IN BED. WOUND VAC TO RIGHT HIP CDI. SCD'S ON. NASAL CANNULA IN PLACE AT 2L. BED LOW POSITION, CALL LIGHT IN REACH. WILL CONTINUE TO MONITOR.
[2021-01-18 09:36] VITALS: BP 169/91
[2021-01-18 12:29] VITALS: BP 161/86
--- NOTE | 2021-01-18 14:27 | NUR ---
Nutrition follow-up: Diet order: Regular PO intake ~75% of meals Labs reviewed Wt: still no current wt Wound VAC to hip +BM Progress toward goals: PO intake fair to good at most meals No new wt to asses Please get current WT to chart RDN follow-up on progress toward nutrition goals: 01/22/21 R
[2021-01-18 16:18] VITALS: BP 153/86
--- NOTE | 2021-01-18 17:02 | NUR ---
OT NOTE: PT PERFORMED SUPINE TO SIT WITHOUT ASSIST; SIT TO STAND WITH WALKER AND CGA; TRANSFER TO COMMODE WITH CGA/SBA; TOILET HYGIENE WITH SET UP. SARAH ANDERSON, OTR/L [phone]
--- NOTE | 2021-01-18 19:45 | NUR ---
RECEIVED BEDSIDE REPORT. PT LAYING IN BED A&O X4. PIV TO LEFT FOREARM PATENT AND INFUSING, NO REDNESS OR SWELLING. INCISION TO RIGHT HIP, DRSG C/D/I. TELEMETRY IN PLACE, 95 SR. BILAT HEELS BRIDGED, KENG C/D/I. EDUCATED PT ON CL AND NEEDS, VERBALIZED UNDERSTANDING. BED LOW, CL IN REACH.
[2021-01-18 20:00] VITALS: BP 160/97
[2021-01-19] VITALS: BP 168/90
[2021-01-19 04:00] VITALS: BP 166/93
[2021-01-19 05:37] LABS: BASOPHILS 0.4 % (0-2); EOSINOPHILS 2.2 % (0-7); HEMATOCRIT 23.5 % (42.0-54.0); HEMOGLOBIN 7.7 g/dL (13.5-17.5); IMMATURE GRANULOCYTES 0.1 % (0-5); LYMPHOCYTE ABS# 2.31 10x3/uL (1.32-3.57); LYMPHOCYTES 28.3 % (15-50); MCH 29.7 pg (26.0-34.0); MCHC 32.8 g/dL (31.0-37.0); MCV 90.7 fL (80.0-100.0); MEAN PLATELET VOLUME 9.6 fL (7.4-10.4); NEUTROPHIL ABS# 4.81 10x3/uL (1.78-5.38); PLATELET COUNT 222 10x3/uL (130-400); RBC 2.59 10x6/uL (4.20-6.10); RDW 19.3 % (11.5-14.5); WBC 8.2 10x3/uL (4.8-10.8)
[2021-01-19 05:50] LABS: ANION GAP 20.1 mmol/L (8-16); CALCIUM 9.5 mg/dL (8.5-10.1); CARBON DIOXIDE 18.9 mmol/L (21.0-32.0); CREATININE - SERUM 1.5 mg/dL (0.6-1.3); MAGNESIUM - SERUM 1.7 mg/dL (1.8-2.4)
--- NOTE | 2021-01-19 07:00 | NUR ---
PT RECEIVED RESTING QUIETLY ON RIGHT SIDE. RESP EVEN AND UNLABORED. TRIALYSIS TO LEFT CHEST INTACT. IV TO LEFT FOREARM WITH NS @ KVO. DRESSING INTACT TO RIGHT HIP. BILATERAL HEEL PROTECTORS IN PLACE. DENIES FURTHER NEEDS AT THIS TIME. CL WITHIN REACH ENCOURAGED TO CALL WITH NEEDS. CONTINUE POC
[2021-01-19 09:00] VITALS: BP 154/94
[2021-01-19 13:50] VITALS: BP 141/87
--- NOTE | 2021-01-19 19:45 | NUR ---
RECEIVED BEDSIDE REPORT. PT DENIES NEEDS AT THIS TIME. BED LOW, CL IN REACH.
[2021-01-19 20:00] VITALS: BP 141/82
[2021-01-20 04:00] VITALS: BP 145/78
[2021-01-20 06:09] LABS: BASOPHILS 0.2 % (0-2); HEMATOCRIT 23.1 % (42.0-54.0); IMMATURE GRANULOCYTES 0.2 % (0-5); LYMPHOCYTE ABS# 2.25 10x3/uL (1.32-3.57); LYMPHOCYTES 26.5 % (15-50); MCH 29.5 pg (26.0-34.0); MCHC 32.5 g/dL (31.0-37.0); MCV 90.9 fL (80.0-100.0); MEAN PLATELET VOLUME 9.5 fL (7.4-10.4); MONOCYTES 10.6 % (2-11); NEUTROPHIL ABS# 5.14 10x3/uL (1.78-5.38); NEUTROPHILS 60.5 % (40-80); PLATELET COUNT 211 10x3/uL (130-400); RBC 2.54 10x6/uL (4.20-6.10); RDW 19.3 % (11.5-14.5); WBC 8.5 10x3/uL (4.8-10.8)
[2021-01-20 06:21] LABS: ANION GAP 16.4 mmol/L (8-16); CALCIUM 9.4 mg/dL (8.5-10.1); CARBON DIOXIDE 20.5 mmol/L (21.0-32.0); CREATININE - SERUM 1.5 mg/dL (0.6-1.3)
[2021-01-20 06:23] LABS: HEMOGLOBIN 7.5 g/dL (13.5-17.5)
[2021-01-20 06:24] LABS: POTASSIUM - SERUM 2.9 mmol/L (3.5-5.1)
--- NOTE | 2021-01-20 07:38 | NUR ---
RESTING IN BED WITH EYES OPEN, ALERT AND ORIENTED. DRESSING X2 LOCATED TO RIGHT HIP/LEG. IV LOCATED TO LEFT FOREARM CURRENTLY RUNNING NS @ KVO. DRESSING TO HEALS, HEAL PROTECTORS PRESENT. NO CURRENT S/S OF DISTRESS, DENIES CURRENT NEEDS, WILL CONT TO MONITOR.
--- NOTE | 2021-01-20 08:39 | OP ---
PATIENT NAME: BILL FERREIRA MEDICAL RECORD: [id number] :63 LOCATION:[id number] ADMISSION DATE:11/29/20 SURGEON: ETHAN BLUM MD DATE OF OPERATION: 01/11/2021 PREOPERATIVE DIAGNOSES: 1. Surgical wound dehiscence, right hip. 2. Right hip infection. 3. History of cephalomedullary nailing, right subtrochanteric femur fracture. POSTOPERATIVE DIAGNOSES: 1. Surgical wound dehiscence, right hip. 2. Right hip infection. 3. History of cephalomedullary nailing, right subtrochanteric femur fracture. PROCEDURE PERFORMED: 1. Incision and debridement, right hip wounds (skin, subcutaneous tissue, muscle). 2. Application of wound VAC, right hip (greater than 50 cm-squared). INDICATIONS: Mr. Ferreira is a 55-year-old male who sustained a right subtrochanteric femur fracture approximately 6 weeks ago and underwent cephalomedullary nailing at that time. He developed multisystem failure postoperatively and has been slow to heal the wounds over his lateral hip. He was seen in the operating room last week for I and D with wound VAC placement and returns today for repeat I and D. Risks, benefits, and alternatives of surgery were discussed with the patient and consent was obtained. DESCRIPTION OF PROCEDURE: The patient was met in the holding area where his identity and confirmation of procedure was performed. The right lower extremity was marked. He was taken to the operating room where he was placed supine on the operating table, and anesthesia was administered. He was then positioned in the left lateral decubitus position. Extremities were positioned and padded appropriately. The right lower extremity was prepped and draped in a sterile fashion. The patient was on scheduled antibiotics; therefore, did not receive any immediately preop. A timeout was performed prior to initiating the case. On initiation of the case, the wounds were explored and he was still noted to have quite a bit of fatty necrosis around the edges of the wound at the lateral hip as well as some present in the deep tissues at the proximal hip. There is granulation tissue forming at the superficial edges of the wound. The decision was made to perform a repeat I and D today. Hopefully, build up more granulation tissue before final wound closure. The tissues at the lateral hip were excised circumferentially down to the wound bed. This area was debrided with a scalpel. The proximal hip wound was inspected and there were again with some deep fatty necrosis appeared to be where the nail entry was transversely. This area was excised as well. These wounds were irrigated thoroughly with saline. There appeared to be good bleeding tissue from the edges after debridement. Wound VAC was then placed to both wounds. The distal wound measuring 10 x 5 cm in the proximal wound measuring 4 x 3.5 cm. Wound VAC was applied and noted to have good compression. This completed our procedure. The patient was turned back over to anesthesia where he was awakened, extubated, and taken to recovery room in stable condition. POSTOPERATIVE PLAN: The patient is going to return to the floor for continued postoperative care. Continue his IV antibiotics. OPERATIVE REPORT [id number] BILL FERREIRA PLAN: Return to the operating room later this week for repeat I and D with wound VAC change versus closure. COMPLICATIONS: None. ESTIMATED BLOOD LOSS: 25 mL. ANESTHESIA: General. TRANSINT:[id number] Voice Confirmation ID: [id number] DOCUMENT ID: [id number] ETHAN BLUM MD at 0839 CC: [id number] DICTATION DATE: 01/11/21 1544 BASE WAD OPERATOR ADJUSTER: 01/11/21 2331 ADM IN [facility] [id number] [place] [address]
--- NOTE | 2021-01-20 08:41 | OP ---
PATIENT NAME: BILL FERREIRA MEDICAL RECORD: [id number] :63 LOCATION:[facility] ADMISSION DATE:11/29/20 SURGEON: ETHAN BLUM MD DATE OF OPERATION: 01/14/2021 PREOPERATIVE DIAGNOSES: 1. Surgical wound dehiscence, right hip. 2. Right hip infection. 3. History of cephalomedullary nailing, right subtrochanteric femur fracture. POSTOPERATIVE DIAGNOSES: 1. Surgical wound dehiscence, right hip. 2. Right hip infection. 3. History of cephalomedullary nailing, right subtrochanteric femur fracture. PROCEDURE PERFORMED: 1. Incision and debridement, right hip wounds (skin, subcutaneous tissue, muscle). 2. Delayed closure of complex right hip wounds (17 cm). 3. Application of incisional wound VAC, right hip (less than 50 cm-squared). INDICATIONS FOR THE PROCEDURE: Mr. Ferreira is a 55-year-old male with a history of right subtrochanteric femur fracture and underwent surgery approximately 6 weeks ago. He developed multisystem organ failure postop and delayed wound healing. We have performed I&D on 2 occasions now and he returns today for repeat I&D with wound closure versus VAC change. Risks, benefits and alternatives of surgery were discussed with the patient. Consent was obtained. DESCRIPTION OF THE PROCEDURE: The patient was met in the holding area where his identity and confirmation of procedure was performed. Right lower extremity was marked. He was taken to the operating room where he was placed supine on the operating table, and anesthesia was administered. He was then positioned in the left lateral decubitus position. Extremities were positioned and padded appropriately. The right lower extremity was prepped and draped in a sterile fashion. The patient is on scheduled antibiotics; therefore, did not receive any immediately preop. A timeout was performed before initiating of the case. On initiation of the case, the wounds were explored and noted to be clean and with good granulation tissue present. The edges were sharply debrided with a scalpel. We then performed a thorough irrigation of the wounds. Again, the wounds appeared to be healthy and we therefore proceeded with the wound closure. The IT band was closed with 0 PDS suture. The deep subcutaneous tissue was closed with 0 PDS and the skin edges were closed with nylon suture. An incisional wound VAC was placed and this completed our procedure. Total length of closure equal to 17 cm. The patient was turned back over to anesthesia where he was awakened, extubated, and taken to the recovery room in stable condition. POSTOPERATIVE PLAN: The patient is going to return to the floor for continued postoperative care. We will continue his IV antibiotics. He may be partial weightbearing on the right lower extremity and mobilized with physical therapy. Plan, home versus rehab upon discharge. COMPLICATIONS: None. ESTIMATED BLOOD LOSS: 10 mL. OPERATIVE REPORT [id number] BILL FERREIRA ANESTHESIA: General. TRANSINT:[id number] Voice Confirmation ID: [id number] DOCUMENT ID: [id number] ETHAN BLUM MD at 0841 CC: [id number] DICTATION DATE: 01/14/21 1157 REGIONAL SALES MANAGER: 01/14/21 1221 ADM IN [facility] [address] [place] [address]
[2021-01-20 09:08] VITALS: BP 154/86
[2021-01-20] MEDS ORDERED: ELIQUIS2.5 MG PO (11:46)
[2021-01-20] MEDS ORDERED: MIRALAX17 GM PO (11:47)
[2021-01-20] MEDS ORDERED: Retacrit SC (11:47)
[2021-01-20] MEDS ORDERED: MAG-OX 400 MG400 MG PO (11:48)
[2021-01-20] MEDS ORDERED: GABAPENTIN100 MG PO (11:49)
[2021-01-20] MEDS ORDERED: MULTI-DAY VITAM1 TAB PO (11:50)
[2021-01-20] MEDS ORDERED: VITAMIN B-1100 M1 PO (11:50)
[2021-01-20] MEDS ORDERED: AUGMENTIN 875-11 TAB PO (11:51)
--- NOTE | 2021-01-20 14:03 | NUR ---
RESUMED CARE OF PT. UP TO BEDSIDE COMMODE. BACK TO BED. RESTING AT THIS TIME. FREE FROM SIGNS OF DISTRESS. WILL CONTINUE TO MONITOR.
[2021-01-20 14:48] VITALS: BP 178/89
--- NOTE | 2021-01-20 14:53 | NUR ---
OT NOTE: PT DOING BETTER TODAY. BED MOB INCLUDING SUPINE TO SIT WITH SBA; TRANSFER TO TOILET WITH CGA; ABLE TO AMB WITH WALKER AND MIN ASSIST X 50 FT (WITH ASSISTANCE FOR EQUIP MGMT)..PT REQUIRED CONSTANT CUEING FOR R FOOT PLACEMENT HIS R HIP IS INTERNALLY ROTATED. PT HAS BEEN EDUCATED ON EXS TO ASSIST WITH THIS SINCE HIS ADMISSION, BUT WAS PREVIOUSLY UNABLE TO KEEP UP WITH THE ACT DUE TO ILLNESS. AMB BACK TO CHAIR AND TRANSFERRED WITH MIN ASSIST. EDUCATED ON EXS TO ASSIST WITH KEEPING R LE OUT OF INTERNAL ROTATION. PT ABLE TO PERFORM EXS BUT DOES NOT PAY ATTEN TO WHAT THERAPIST IS EXPLAINING TO HIM. THEM PT GETS EASILY AGITATED. PT TOLERATED SITTING UP IN CHAIR FOR MOST OF THE DAY TODAY. PT PROVIDED WITH CUSHION TO PREVENT FURHTER BREAKDOWN. SARAH ANDERSON, OTR/L 9:00
--- NOTE | 2021-01-20 16:38 | NUR ---
OT NOTE: PT REQUIRED MIN A FOR SUPINE TO SIT. PT REQUIRED MIN A FOR BED TO [facility] TSF. PT COMPLETED ADL MOB WITH MIN A USING A RW. PT COMPLETED FACE AND HAND HYGIENE WITH SETUP. [phone] KRISTY ELENA COTA
[2021-01-20 17:47] VITALS: BP 144/79
--- NOTE | 2021-01-20 19:45 | NUR ---
RECEIVED BEDSIDE REPORT. PT LAYING IN BED A&O X4. PIV TO LEFT FOREARM, PATENT AND INFUSING, NO REDNESS OR SWELLING. INCISION TO RIGHT HIP, DRSG C/D/I. EXORIATION TO BILAT HEELS, DRSG C/D/I. TELEMETRY IN PLACE, SR 95. PT ABLE TO AMBULATE TO BSC WITH ASSIST. FALL PRECAUTIONS IN PLACE, BED ALARM ON. EDUCATED PT ON CL AND NEEDS, VERBALIZED UNDERSTANDING. BED LOW, CL IN REACH.
[2021-01-20 20:00] VITALS: BP 149/87
[2021-01-21 04:00] VITALS: BP 156/88
--- NOTE | 2021-01-21 04:35 | NUR ---
CHANGED DRSG TO BILAT HEELS, APPLIED BETA GAUZE, 4X4 GAUZE, KERLIX. PT TOLERATED WELL. BED LOW, ALARM ON, CL IN REACH.
[2021-01-21 06:27] LABS: BASOPHILS 0.3 % (0-2); EOSINOPHILS 2.9 % (0-7); HEMATOCRIT 25.4 % (42.0-54.0); HEMOGLOBIN 8.2 g/dL (13.5-17.5); IMMATURE GRANULOCYTES 0.3 % (0-5); LYMPHOCYTE ABS# 2.74 10x3/uL (1.32-3.57); MCH 29.9 pg (26.0-34.0); MCHC 32.3 g/dL (31.0-37.0); MCV 92.7 fL (80.0-100.0); MEAN PLATELET VOLUME 9.9 fL (7.4-10.4); MONOCYTES 8.6 % (2-11); NEUTROPHIL ABS# 5.01 10x3/uL (1.78-5.38); NEUTROPHILS 56.9 % (40-80); PLATELET COUNT 220 10x3/uL (130-400); RBC 2.74 10x6/uL (4.20-6.10); RDW 19.7 % (11.5-14.5); WBC 8.8 10x3/uL (4.8-10.8)
[2021-01-21 06:28] LABS: ANION GAP 20.9 mmol/L (8-16); CALCIUM 9.4 mg/dL (8.5-10.1); CREATININE - SERUM 1.5 mg/dL (0.6-1.3)
[2021-01-21 06:31] LABS: POTASSIUM - SERUM 2.9 mmol/L (3.5-5.1)
--- NOTE | 2021-01-21 07:45 | NUR ---
RECIEVED BEDSIDE REPORT. IN BED. DENIES NEEDS AT THIS TIME. BED LOW POSITION, CALL LIGHT IN REACH. WILL CONTINUE TO MONITOR.
[2021-01-21 08:53] VITALS: BP 149/86
--- NOTE | 2021-01-21 14:12 | MORECARE ---
CASE MANAGEMENT DISCHARGE SUMMARY PATIENT: BILL MCKAY UNIT: [id number] ADM DATE: 11/29/20 AGE: 55 : 64 SEX: M ROOM/BED: [id number] AUTHOR: ZARA OLSEN PHYSICIAN: REFERRING PHYSICIAN: KENNY LOPEZ MD DATE OF SERVICE: 01/21/21 Case Management Discharge Planning Summary COMMENTS ENTERED DATE: 01/21/21 14:00 CT COMMENT TYPE: Discharge Planning REVIEWER: Flora Valdes SPEECH THERAPY CONSULT ORDERED. I RECEIVED A VOICE MAIL FROM [facility] AND THEY STATED PATIENT SHOULD QUALIFY FOR 14 HOURS OF INHOME CARE PER WEEK. I WILL FOLLOW UP WITH THEM AND SEE WHAT PROGRAMS HE MAY QUALIFY FOR THROUGH THEM WITH HIS MEDICAID. DISCHARGE ORDER ON HOLD, PATIENT NEEDS TO BE ABLE TO GET IN AND OUT OF BED AND DO FOR HIMSELF WITHOUT ASSISTANCE IN ORDER TO SAFELY RETURN HOME PER ORTHO. CM TO FOLLOW AND ASSIST NEEDED. ENTERED DATE: 01/01/21 11:04 CT COMMENT TYPE: Discharge Planning REVIEWER: Flora Valdes CM SPOKE WITH PATIENT THIS MORNING ABOUT DISCHARGE PLANNING. HE IS VERY SHORT OF BREATH, HE IS ON OXYGEN VIA NASAL CANNULA. HE SAID HIS PLAN IS TO RETURN TO HOME WHEN HE IS ABLE TO STAND. I TALKED WITH HIM ABOUT HIS NEED FOR DIALYSIS AND IT WILL BE THREE TIMES PER WEEK. HE STATES GETTING TO AND FROM DIALYSIS WILL BE A PROBLEM. HE HAS MEDICAID, I WILL CALL AND SEE IF HE CAN GET SET UP WITH [facility] FOR TRANSPORT TO AND FROM DIALYSIS. I ALSO TALKED WITH HIM ABOUT THE IMPORTANCE OF WORKING WITH PHYSICAL THERAPY BECUASE IF HE IS NOT SAFE TO RETURN HOME HE WILL NEED TO GO TO A DETENTION. HE STATES HE WILL BE ABLE TO GO HOME ONCE HE IS WELL. CM WILL FOLLOW AND ASSIST NEEDED. DCP REVIEW SUMMARY ANTICIPATED D/C DATE: EXPECTED LOS : 0 CASE STATUS: DCP Initiated INITIAL REVIEW: 12/29/2020 INITIAL REVIEWER: Flora Valdes FINAL DISCHARGE DISPOSITION: : FINAL REVIEWER: FINAL REVIEW DATE: DCP [employer] Questions [employer] Answers QUESTION: ANSWER : PATIENT: BILL MCKAY ENCOUNTER: [id number] MEDICAL RECORD#: [id number] ADMISSION DATE: 11/29/2020 DISCHARGE DATE: ATTENDING MD: KENNY MCKNIGHT : AGE: 55 MARITAL STATUS: S DC PLAN ID: [id number] FACILITY: [facility] PRINTED ON: 01/21/21 14:12 CT All edits/amendments must be made on the electronic document DICTATION DATE: 01/21/211411 SURGICAL PATHOLOGIST: PAULINE 01/21/211411 RPT#: [id number] DC DATE: STATUS: ADM IN [facility] [address] [place] [address] END OF REPORT
--- NOTE | 2021-01-21 14:18 | NUR ---
OT NOTE: D/W P.T, S.T, AND CM SEVERAL TIMES TODAY. PT HAS PREVIOUISLY BEEN RESISTIVE TO THERAPY AND RESISTANT TO EDUCATION PROVIDED BY THERAPISTS.. HOWEVER, TODAY, WHEN THIS THERAPIST TRIED TO BE FIRM WITH INSTRUCTIONS AND PROVIDED EXPLICIT, ONE STEP COMMANDS, PT WAS UNABLE TO FOLLOW THROUGH. HIS PROCESSING SKILLS ARE EXTREMELY IMPAIRED. HE ABSOLUTELY CANT FOLLOW OR UNDERSTAND REASONING FOR R FOOT PLACEMENT DURING TRANSFERS. REQUESTED S.T. CONSULT FOR COGNITIVE EVAL. PT IS PHYSICALLY ABLE TO PERFORM TRANSFERS AND TOILETING, HOWEVER, COGNITIVELY, HE IS NOT SAFE.. HES DEFINITITELY UNSAFE TO LIVE ALONE SARAH SAAVEDRA, OTR/L [phone]
[2021-01-21 15:49] VITALS: BP 144/82
--- NOTE | 2021-01-21 17:14 | NUR ---
OT NOTE: PT COMPLETED BED MOB WITH CGA. PT COMPLETED SIDE ROLLING WITH SBA. [phone] THANK YOU,MARITA JACK
[2021-01-21 20:00] VITALS: BP 160/88
[2021-01-22 04:00] VITALS: BP 161/92
--- NOTE | 2021-01-22 04:05 | NUR ---
PATIENT PULLED OUT IV TO LEFT FOREARM. NEW 20G PIV TO LEFT AC PLACED.
[2021-01-22 07:37] LABS: ANION GAP 22.7 mmol/L (8-16); CALCIUM 10.1 mg/dL (8.5-10.1); CARBON DIOXIDE 16.3 mmol/L (21.0-32.0); CREATININE - SERUM 1.6 mg/dL (0.6-1.3)
[2021-01-22 07:41] LABS: BASOPHILS 0.4 % (0-2); HEMOGLOBIN 8.7 g/dL (13.5-17.5); IMMATURE GRANULOCYTES 0.2 % (0-5); LYMPHOCYTE ABS# 4.48 10x3/uL (1.32-3.57); MCH 30.4 pg (26.0-34.0); MCHC 32.2 g/dL (31.0-37.0); MCV 94.4 fL (80.0-100.0); MEAN PLATELET VOLUME 9.9 fL (7.4-10.4); MONOCYTES 8.4 % (2-11); NEUTROPHIL ABS# 6.48 10x3/uL (1.78-5.38); PLATELET COUNT 220 10x3/uL (130-400); RBC 2.86 10x6/uL (4.20-6.10); RDW 20.1 % (11.5-14.5); WBC 12.5 10x3/uL (4.8-10.8)
[2021-01-22 08:44] VITALS: BP 141/95
--- NOTE | 2021-01-22 09:40 | NUR ---
SUMMONED TO ROOM BY STAFF PATIENT SITTING ON BEDSIDE COMMODE C/O OF SEVERE HEADACHE ASSISTED IN BED V/S 176/98 P100 R 22 O2 100% ON ROOM AIR. PATIENT UNABLE TO FOLLOW COMMAND AND RESPONSE TO VERBAL QUESTIONS ARE DELAYED. STAFF REPORTS PATIENT HAS SIGNIFICANT CHANGE IN MENTAL STATUS SINCE YESTERDAY. NOTIFIED DR. LOPEZ WITH NEW ORDERS FOR CT HEAD WITHOUT CONTRAST. WILL CONTINUE TO MONITOR.
--- NOTE | 2021-01-22 12:32 | NUR ---
OT NOTE: UPON ENTERING ROOM, PT WAS VERY QUIET.. ALERT BUT ACTING SOMEWHAT DROWSY. INFORMED PT WHAT WE WOULD BE DOING FROM THERAPY STANDPOINT WITH LITTLE TO NO RESPONSE FROM PT. ATTEMPTED TO HAVE PT SIT UP ON EOB WITH SIMPLE COMMANDS, VERBAL CUES, AND TACTILE CUES. PT UNABLE TO FOLLOW ANY OF THE ABOVE.. ASKED PT SEVERAL TIMES THROUGHOUT IF HE WAS OK.. WITH AN EXTENDED DELAY, PT RESPONDED YES.. REQUIRED MAX ASSIST TODAY WITH TRANSFER FROM BED TO TIOLET DUE TO INABILITY TO PROCESS VERBAL COMMANDS. PT WAS ALERT TO SELF ONLY..DID NOT KNOW WHERE HE WAS AND WHEN GIVEN CHOICE OF HOME OR HOSPITAL, HE DID NOT KNOW.. SIGNIFICANT CHANGE FROM PREVIOUS STATUS.. WHILE PT WAS ON BS COMMODE, HE BEGAN HOLDING HIS HEAD AND COMPLAINING OF SEVERE HEAD ACHE TO R SIDE OF HEAD.. ASSISTED BACK TO BED WITH MAX ASSIST X 2.. NURSING NOTIFIED AND IMMEDIATELY CAME TO CHECK VITALS. SARAH ANDERSON, OTR/L [phone]
--- NOTE | 2021-01-22 13:18 | NUR ---
Nutrition follow-up: Pt with decreased appetite this morning; reports not hundgry. Diet order: regular Labs reviewed Wt: 216# Will continue to provide food choices and honor food preferences. RDN will follow-up: 01/25/21
[2021-01-22 13:54] VITALS: BP 168/85
--- NOTE | 2021-01-22 15:02 | NUR ---
INITIATED 22 GAUGE IN LEFT UPPER ARM.
--- NOTE | 2021-01-22 16:27 | NUR ---
OT NOTE: NOTED DELAY IN COGNITIVE PROCESSING. NOTIFIED NURSE. PT COMPLETED BED TO BSC TSF WITH MAX A X2. REQUIRED EXTENSIVE CUES TO SEQUENCE TASKS. PT COMPLETED UB HYGIENE TASKS WITH MIN A AND EXTENSIVE CUES. PT COMPLETED BUE AROM WITH ADL TASKS. PT C/O HEADACHE. NOTIFIED NURSING. [phone] THANK YOU,MARITA JACK
[2021-01-22 17:11] VITALS: BP 152/93
--- NOTE | 2021-01-22 23:15 | NUR ---
PATIENT CONFUSED, RESISTANT TO CARE. ABLE TO GET BEDDING CHANGED AND PATIENT CLEANED UP. DRESSING TO RIGHT HIP CDI. DENIES PAIN AT THIS TIME.
[2021-01-23 07:34] VITALS: BP 133/105
[2021-01-23 08:10] LABS: BASOPHILS 0.3 % (0-2); HEMATOCRIT 25.5 % (42.0-54.0); HEMOGLOBIN 8.4 g/dL (13.5-17.5); IMMATURE GRANULOCYTES 0.3 % (0-5); LYMPHOCYTE ABS# 2.85 10x3/uL (1.32-3.57); LYMPHOCYTES 28.9 % (15-50); MCH 30.3 pg (26.0-34.0); MCHC 32.9 g/dL (31.0-37.0); MEAN PLATELET VOLUME 9.7 fL (7.4-10.4); MONOCYTES 9.6 % (2-11); NEUTROPHILS 58.9 % (40-80); PLATELET COUNT 223 10x3/uL (130-400); RBC 2.77 10x6/uL (4.20-6.10); RDW 20.1 % (11.5-14.5); WBC 9.9 10x3/uL (4.8-10.8)
[2021-01-23 08:18] LABS: MCV 92.1 fL (80.0-100.0)
[2021-01-23 08:26] LABS: ALBUMIN 5.1 g/dL (3.4-5.0); ANION GAP 20.7 mmol/L (8-16); BILIRUBIN - TOTAL 2.5 mg/dL (0.2-1.3); CALCIUM 10.3 mg/dL (8.5-10.1); CARBON DIOXIDE 18.7 mmol/L (21.0-32.0); CREATININE - SERUM 1.5 mg/dL (0.6-1.3); POTASSIUM - SERUM 3.4 mmol/L (3.5-5.1); PROTEIN - SERUM 8.3 g/dL (6.4-8.2)
--- NOTE | 2021-01-23 09:18 | NUR ---
PT ALERT WITH CONFUSION. FOUND SITTING UP ON BEDSIDE. ADMINISTERED MEDICAITON WITH PUDDING, MINIMAL DIFFICULTY. COMPLETE BED CHANGE. CVL DRESSING CHANGE TO LEFT SIDED HEMOSPLIT. PULLED OFF OLD DRESSING. RATE QUOTING OPERATOR REAPPLIED. RESTING COMFORTABLY. BED IN LOWEST POSITION ,BED RAILS X2, CALL LIGHT WITHIN REACH. WILL CONTINUE POC.
--- NOTE | 2021-01-23 11:30 | NUR ---
IN BED WITH EYES CLOSED, EASILY AROUSES TO VOICE. ADMINISTERED MEDS, TOLERATED WELL. UNABLE TO GIVE ALBUMIN, PULLED IV OUT OF LEFT UPPER ARM. CATHETER TIP INTACT, FOUND ON BEDSIDE TABLE. REFUSING TO ALLOW PLACEMENT FOR ANOTHER AT THIS ITME. BED IN LOWEST POSITION, BED RAILS X2, CALL LIGHT WITHIN REACH. WILL CONTINUE POC.
--- NOTE | 2021-01-23 12:21 | NUR ---
NO INSULIN PER SLIDING SCALE FOR SUGAR OF 105. RESTING IN BED. STILL CONFUSED, SLOW TO FOLLOW INSTRUCTIONS. WILL CONTINUE POC.
--- NOTE | 2021-01-23 15:15 | NUR ---
PT REMOVES TELEMETRY ELECTRODES. ELCTRODES REPLACED. PT IS UNCOOPERATIVE AND ATTEMPTS TO REMOVE AGAIN. PT ENCOURAGED TO LEAVE SPACE TECHNOLOGIST UMU. BED IS IN THE LOWEST POSITION. CALL LIGHT AND BEDSIDE TABLE ARE WITHIN REACH. SIDE RAILS X2. PT REFUSES HOSPITAL GOWN. FALL PRECAUTIONS IN PLACE. INCENTVIE SPIROEMTER WITHIN REACH AND ENCOURAGED. PT IS UNCOOPERATIVE. WILL CONT TO MONITOR.
--- NOTE | 2021-01-23 15:38 | NUR ---
PT SITTING UP TO SIDE OF BED. PT IS UNCOOPERATIVE WITH 1500 MEDICATIONS. PT WITHOUT IV ACCESS AND IS REFUSING TO ALLOW FOR PIV RESITE. PT INCREASINGLY AGITATED WITH PROMPTING OF MEDICATION. WILL ATTEMPT MEDICATION ADMINISTRATION AND PIV RESITE AT A LATER TIME.
--- NOTE | 2021-01-23 15:56 | NUR ---
DRESSING TO RIGHT HIP CHANGED PER ORDER. INCISIONCLEANED WITH WOUND SOCIAL WORKER. 4X4 AND TAPE USED. PT TOLERATED WELL AND ALLOWED FOR DRESSING CHANGE. ALL FALL PRECAUTIONS IN PLACE. PT REFUSES TO WEAR HOSPITAL GOWN. BED IS IN THE LOWEST POSITION.C CALL LIGHT AND BEDSIDE TABLE ARE WITHIN REACH. SIDE RAILS X 2. WILL CONT TO MONITOR.
--- NOTE | 2021-01-23 16:03 | NUR ---
PT OOB. FALL ALARM SOUNDING. PT ASSISTED BACK TO BED AND EDUCATED ON FALL PRECAUTIONS. PT WILL NOT COMMUNICATE WITH NURSE AT THIS TIME AND CONTINUES TO BE UNCOOPERATIVE. PT DENIES NEED FOR BATHROOM ASSISTANCE. PT IS SITTING ON SIDE OF BED. PT REFUSES TO LAY IN BED. PT REFUSES TO SIT IN BEDSIDE CHAIR. PT INCREASINGLY AGITATED. FALL PRECAUTIONS IN PLACE. BED IS IN THE LOWEST POSITION. CALL LIGHT AND BEDSIDE TABLE ARE WITHIN REACH. SIDE RAILS X 2. WILL CONT TO MONITOR.
--- NOTE | 2021-01-23 17:20 | NUR ---
PT STANDING AT SIDE OF BED. BED ALARM SOUNDING. PT ENCOURAGED TO SIT IN BED. PT IS UNCOOPERATIVE. PT GRABBING AT RIGHT LEG AND WINCING. PT ASKED IF FEELING PAIN AND PT STATES "YES!". PT ASKED IF WOULD LIKE PAIN MEDICATION AND PT STATES "YES!". WILL ADMINISTER PRN MEDICATION AT PT REQUEST. SEE EMAR. PT ASSISTED BACK TO BED. BED ALARM IS ON AND WORKING. BED IS IN THE LWEST POSITION. CALL LIGHT AND BEDSIDE TABLE ARE WITHINREACH. SIDE RAILS X 2. PT ROOM CLOSE TO NURSE STATION. WILL CONT TO MONITOR.
[2021-01-23 20:00] VITALS: BP 152/96
[2021-01-24] VITALS: BP 141/79
--- NOTE | 2021-01-24 01:11 | NUR ---
NEW 22G PIV STARTED TO RIGHT WRIST. ALBUMIN INFUSING.
--- NOTE | 2021-01-24 02:50 | NUR ---
PATIENT PULLED OUT NEW PIV TO RIGHT WRIST. GAUZE DRESSING APPLIED. PATIENT COMBATIVE, REFUSING TO ALLOW ANOTHER IV TO BE PLACED FOR IV ABX TO BE RUN.
--- NOTE | 2021-01-24 02:52 | NUR ---
PATIENT'S BED ALARM SOUNDING. ENTERED ROOM TO FIND PATIENT STANDING AT BEDSIDE, URINATING ALL OVER THE FLOOR. PATIENT THEN BEGAN TO CUSS OUT STAFF FOR THE MESS ON THE FLOOR. PATIENT SAFELY RETURNED TO BED, FLOOR CLEANED.
[2021-01-24 04:00] VITALS: BP 166/90
[2021-01-24 04:47] LABS: BILIRUBIN NEGATIVE (NEGATIVE); KETONE NEGATIVE (NEGATIVE); NITRITE NEGATIVE (NEGATIVE); UROBILINOGEN NORMAL mg/dL (< 2)
--- NOTE | 2021-01-24 05:33 | NUR ---
DRESSINGS TO BILATERAL HEELS AND RIGHT HIP CHANGED. NO DRAINAGE NOTED AT HIP. COPIOUS DRAINAGE FROM BILATERAL HEELS. ESCHAR NOTED TO HEELS.
[2021-01-24 10:07] VITALS: BP 151/70
[2021-01-24 15:00] VITALS: BP 160/83
--- NOTE | 2021-01-24 17:49 | NUR ---
0700 PATIENTS IV OUT RESTARTED IV WITH 18 GAUGE TO RIGHT WRIST
--- NOTE | 2021-01-24 17:50 | NUR ---
1400 ASSISTED UP TO BEDSIDE COMMODE VOIDED WITHOUT DIFFICULTY INSTRUCTED PT TO USE CALL LIGHT FOR ASSIST BED ALARM ON
--- NOTE | 2021-01-24 17:50 | NUR ---
0900 UP TO BEDSIDE COMMODE WITH ASSIST X I SMEAR BM NOTED
[2021-01-24 18:28] VITALS: BP 159/87
[2021-01-24 20:00] VITALS: BP 163/92
[2021-01-25] VITALS: BP 143/83
[2021-01-25 04:00] VITALS: BP 155/86
[2021-01-25 07:34] LABS: BASOPHILS 0.2 % (0-2); EOSINOPHILS 3.5 % (0-7); HEMATOCRIT 25.4 % (42.0-54.0); HEMOGLOBIN 8.3 g/dL (13.5-17.5); IMMATURE GRANULOCYTES 0.1 % (0-5); LYMPHOCYTE ABS# 2.38 10x3/uL (1.32-3.57); LYMPHOCYTES 25.8 % (15-50); MCH 30.5 pg (26.0-34.0); MCHC 32.7 g/dL (31.0-37.0); MCV 93.4 fL (80.0-100.0); MEAN PLATELET VOLUME 9.8 fL (7.4-10.4); MONOCYTES 10.1 % (2-11); NEUTROPHIL ABS# 5.58 10x3/uL (1.78-5.38); NEUTROPHILS 60.3 % (40-80); PLATELET COUNT 235 10x3/uL (130-400); RBC 2.72 10x6/uL (4.20-6.10); RDW 20.7 % (11.5-14.5); WBC 9.2 10x3/uL (4.8-10.8)
[2021-01-25 07:45] LABS: ANION GAP 20.5 mmol/L (8-16); CALCIUM 9.5 mg/dL (8.5-10.1); CARBON DIOXIDE 18.4 mmol/L (21.0-32.0); CREATININE - SERUM 1.5 mg/dL (0.6-1.3)
[2021-01-25 08:00] LABS: POTASSIUM - SERUM 2.9 mmol/L (3.5-5.1)
[2021-01-25 10:41] VITALS: BP 155/84
--- NOTE | 2021-01-25 14:44 | NUR ---
Nutrition follow-up: Diet order: Regular as tolerated PO intake has decreased over the last few days Wt: 216# Labs reviewed Will continue to provide food choices and honor food preferences Will offer and encourage nutritional supplements. RDN follow-up: 01/28/21
--- NOTE | 2021-01-25 14:51 | NUR ---
I have reviewed this patient and I concur with the Shift Assessment completed by the Licensed Practical Nurse today this shift.
--- NOTE | 2021-01-25 15:09 | NUR ---
OT NOTE: INITIALLY PERFORMED TMT WITH P.T. TODAY. BED MOB WITH MIN ASSIST; EOB SITTING WTIH SBA; PT LESS CONFUSED TODAY. REMAINS SOMEWHAT ARGUMENTATIVE BUT MUCH BETTER AT FOLLOWING COMMANDS AND FOCUSING ON TASKS. SIT TO STAND WITH WALKER WITH SBA; AMB INTO HALLWAY WITH WALKER AND MIN/MOD ASSIST; RETURNED TO ROOM AND TRANSFERRED TO CHAIR WITH MIN ASSIST. VERY FATIGUED WHEN RETURNED TO ROOM. PT REFUSED TO EAT BUT AGREEABLE TO DRINK ENSURE. PT ABLE TO WASH FACE AND HANDS WITH CLOTH AND SET UP..EDUCATED AGAIN ON R LE PLACEMENT WHILE UP IN CHAIR (PT CONT TO KEEP IT INTERNALLY ROTATED)..AGREEABLE TO SIT UP IN CHAIR.. SLIGHTLY CONFUSED TO WHAT TO DO IF HE NEEDS TO GO TO BATHROOM. EXPLAINED TO USE CALL LIGHT SO THAT NURSING CAN ASSIST. PT SLIGHTLY SLOW TO RESPOND AND UNDERSTAND THIS. ALARM PAD IN PLACE WITH DOOR OPEN. SARAH ANDERSON, OTR/L [phone]
[2021-01-25 15:25] VITALS: BP 162/84
[2021-01-25 18:35] VITALS: BP 144/85
[2021-01-25 20:00] VITALS: BP 154/79
[2021-01-26] VITALS: BP 142/81
[2021-01-26 04:00] VITALS: BP 118/66; BP 136/74
--- NOTE | 2021-01-26 05:10 | NUR ---
CHANGED DRESSINGS TO RIGHT HIP, BILATERAL HEELS. RIGHT HIP INCISIONS CDI, BUMPS NOTED BELOW LOWER INCISION SITE PRODUCING SMALL AMOUNT OF SEROSANGUINOUS DRAINAGE. HEEL DRESSINGS HAD COPIOUS DRAINAGE.
[2021-01-26 06:21] LABS: ANION GAP 20.9 mmol/L (8-16); BASOPHILS 0.4 % (0-2); CALCIUM 9.4 mg/dL (8.5-10.1); CARBON DIOXIDE 16.2 mmol/L (21.0-32.0); CREATININE - SERUM 1.3 mg/dL (0.6-1.3); EOSINOPHILS 5.8 % (0-7); HEMATOCRIT 22.7 % (42.0-54.0); IMMATURE GRANULOCYTES 0.4 % (0-5); LYMPHOCYTE ABS# 2.43 10x3/uL (1.32-3.57); LYMPHOCYTES 28.9 % (15-50); MCH 30.5 pg (26.0-34.0); MCHC 32.6 g/dL (31.0-37.0); MCV 93.4 fL (80.0-100.0); MEAN PLATELET VOLUME 9.9 fL (7.4-10.4); MONOCYTES 10.9 % (2-11); NEUTROPHIL ABS# 4.52 10x3/uL (1.78-5.38); NEUTROPHILS 53.6 % (40-80); PLATELET COUNT 207 10x3/uL (130-400); POTASSIUM - SERUM 3.1 mmol/L (3.5-5.1); RBC 2.43 10x6/uL (4.20-6.10); RDW 20.4 % (11.5-14.5); WBC 8.4 10x3/uL (4.8-10.8)
[2021-01-26 06:30] LABS: HEMOGLOBIN 7.4 g/dL (13.5-17.5)
--- NOTE | 2021-01-26 06:39 | NUR ---
PATIENT'S HGB THIS AM IS 7.4. REPORTED TO LAY OUT TECHNICIAN, RECIEVED ORDER TO ORDER TYPE AND SCREEN IN CASE HE NEEDS BLOOD BUT HOLD ON TRANSFUSION AT THIS TIME.
--- NOTE | 2021-01-26 07:25 | NUR ---
REC'D IN BED WITH EYES CLOSED EASILY TO AROUSED WHEN NAME IS CALLED. RESP EVEN AND UNLABORED WITH NO DISTRESS NOTED. DENIES ANY PAIN OR DISCOMFORT AT THIS TIME. ASSESSMENT COMPLETED. C/L IN REACH AT BEDSIDE.
[2021-01-26 08:50] VITALS: BP 148/81
--- NOTE | 2021-01-26 13:01 | NUR ---
I have reviewed this patient and I concur with the Shift Assessment completed by the Licensed Practical Nurse today this shift.
[2021-01-26 13:10] VITALS: BP 150/91
--- NOTE | 2021-01-26 14:47 | NUR ---
OT NOTE: PERFORMED BED MOB WITH SBA; TOILET TRANSFERS TODAY WITH SBA AND GOOD SAFETY; AMB WITH WALKER IN ROOM WITH IMPROVEMENT NOTED CONTROLLING R LE DURING GAIT. PT COGNITIVELY MUCH BETTER THAN LAST WEEK. PROCESSING AND CONFUSION BOTH IMPROVED OVER LAST SEVERAL DAYS. SARAH ANDERSON, OTR/L [phone]
--- NOTE | 2021-01-26 15:33 | NUR ---
WAS MEDICATE WITH NORCO PER ORDERS FOR C/O GENERALIZED PAIN RATING 10/10 ON PAIN SCALE. WILL CONTINUE TO OBSERVE FOR NEEDS. C/L IN REACH AT BEDSIDE.
[2021-01-26 17:09] VITALS: BP 165/90
[2021-01-26 20:00] VITALS: BP 168/99
[2021-01-27 04:00] VITALS: BP 180/96
[2021-01-27 05:44] LABS: BASOPHILS 0.2 % (0-2); EOSINOPHILS 2.5 % (0-7); HEMATOCRIT 24.5 % (42.0-54.0); HEMOGLOBIN 8.1 g/dL (13.5-17.5); IMMATURE GRANULOCYTES 0.2 % (0-5); LYMPHOCYTE ABS# 2.44 10x3/uL (1.32-3.57); LYMPHOCYTES 25.3 % (15-50); MCH 30.5 pg (26.0-34.0); MCHC 33.1 g/dL (31.0-37.0); MCV 92.1 fL (80.0-100.0); MONOCYTES 10.7 % (2-11); NEUTROPHILS 61.1 % (40-80); PLATELET COUNT 236 10x3/uL (130-400); RBC 2.66 10x6/uL (4.20-6.10); RDW 20.5 % (11.5-14.5); WBC 9.7 10x3/uL (4.8-10.8)
[2021-01-27 06:01] LABS: ANION GAP 19.1 mmol/L (8-16); CALCIUM 9.8 mg/dL (8.5-10.1); CARBON DIOXIDE 18.4 mmol/L (21.0-32.0); CREATININE - SERUM 1.3 mg/dL (0.6-1.3); POTASSIUM - SERUM 3.5 mmol/L (3.5-5.1)
--- NOTE | 2021-01-27 08:00 | NUR ---
RESTING IN BED, NO DISTRESS NOTED, MONITOR SUGARS AND ORIENTATION, DRESSING CHANGED TO R HIP BY NIGHT NURSE THIS AM, CONT TO MONITOR
[2021-01-27 08:56] VITALS: BP 156/90
[2021-01-27 12:59] VITALS: BP 149/80
--- NOTE | 2021-01-27 15:33 | NUR ---
GT BELT, PATIENT MIN ASST TO GET UP TO BEDSIDE AND TO STAND. PATIENT WALKED IN [place] 100 FEET WITH MIN ASST X2 FOR SAFETY. PATIENT WOULD STEP AND HAVE HIS FEET TOO CLOSE TOGETHER WHILE WALKING. SAT UP IN CHAIR AFTER WALK.
--- NOTE | 2021-01-27 16:00 | NUR ---
HEMOSPLIT DRESSING CHANGED, WAGNER WELL
[2021-01-27 18:03] VITALS: BP 162/94
--- NOTE | 2021-01-27 19:45 | NUR ---
RECEIVED BEDSIDE REPORT. PT LAYING IN BED, A&O X4. HEMOSPLIT TO LEFT CHEST, PATENT AND S/L. INCISION TO RIGHT HIP, DRSG C/D/I. DRSG TO BILAT HEELS, SCABS/SORES NOTED. TELEMETRY IN PLACE, SR 88. EDUCATED PT ON CL AND NEEDS, VERBALIZED UNDERSTANDING. BED LOW, ALARM ON, CL IN REACH.
[2021-01-27 20:00] VITALS: BP 160/98
[2021-01-28 04:00] VITALS: BP 165/84
[2021-01-28 06:21] LABS: BASOPHILS 0.3 % (0-2); EOSINOPHILS 3.5 % (0-7); HEMOGLOBIN 8.6 g/dL (13.5-17.5); IMMATURE GRANULOCYTES 0.2 % (0-5); LYMPHOCYTE ABS# 2.84 10x3/uL (1.32-3.57); MCH 30.5 pg (26.0-34.0); MCHC 33.1 g/dL (31.0-37.0); MCV 92.2 fL (80.0-100.0); MEAN PLATELET VOLUME 9.7 fL (7.4-10.4); MONOCYTES 8.5 % (2-11); NEUTROPHIL ABS# 7.51 10x3/uL (1.78-5.38); NEUTROPHILS 63.5 % (40-80); PLATELET COUNT 243 10x3/uL (130-400); RBC 2.82 10x6/uL (4.20-6.10); WBC 11.8 10x3/uL (4.8-10.8)
[2021-01-28 06:40] LABS: ANION GAP 20.2 mmol/L (8-16); CALCIUM 9.9 mg/dL (8.5-10.1); CARBON DIOXIDE 17.2 mmol/L (21.0-32.0); CREATININE - SERUM 1.4 mg/dL (0.6-1.3); POTASSIUM - SERUM 3.4 mmol/L (3.5-5.1)
[2021-01-28 09:11] VITALS: BP 160/90
[2021-01-28 12:58] VITALS: BP 160/83
--- NOTE | 2021-01-28 14:08 | NUR ---
Nutrition reassessment: Diet order: Regular mechanical soft with thin liquids PO intake ~30% average at meals; po intake has decreased over the lasst week Labs reviewed Wt: 216# Estimated nutritional needs remain the same as reassessment on 01/12/21 Nutrition diagnsis: Inadequate oral intake R/T mental status change AEB pt now with decreased po intake. Nutrition goals: - PO intake =/> 75% of meals, snacks - Meet est fluid needs - Stable wt Interventions: Will continue to provide food choices and honor all food preferences within diet modification restrictions. Will offer nutritional supplements. Recommendations: Please get a current wt to chart. RDN follow-up: 02/01/21
[2021-01-28 16:56] VITALS: BP 155/83
--- NOTE | 2021-01-28 18:22 | NUR ---
OT NOTE; PT COMPLETED SUPINE TO SIT WITH SBA. PT COMPLETED SIT TO STAND WITH CGA. PT COMPLETED ADL MOB WITH RW REQUIRED CGA-MIN A. PT EXHIBITED POOR WALKER MANAGEMENT AND REQUIRED EXTENSIVE CUES. PT COMPLETED TOILETING WITH SBA. PT REQUIRED MOD A FOR HYGIENE. [phone] KRISTY ELENA COTA
--- NOTE | 2021-01-28 20:45 | NUR ---
RADIOTELEGRAPH OPERATOR SERVICER HEARD PT CALLING FOR HELP. TRIED TO OPEN DOOR TO ROOM AND PT WAS AGAINST DOOR. RESP THERAPIST ABLE TO SQUEEZE IN ROOM TO ASSIST PT IN MOVING OUT OF THE WAY OF DOOR. THIS NURSE ENTERED ROOM. PT WAS SITTING ON FLOOR AND STATED THAT HE STOOD UP TO URINATE AND SLID OFF BED TO FLOOR, DENIES PAIN OR INJURY. ASSISTED PT BACK INTO BED, NO SIGNS OF INJURY OR DISTRESS. CALLED CONDUCTOR/ENGINEER AND PAGED DR LOPEZ. WILL CONTINUE TO MONITOR.
[2021-01-28 21:36] VITALS: BP 150/91
--- NOTE | 2021-01-28 21:45 | NUR ---
SPOKE WITH DR LOPEZ, WILL CONTINUE PLAN OF CARE. BED LOW, ALARM ON, RAILS UP X3, CL IN REACH.
[2021-01-29 04:00] VITALS: BP 141/67
--- NOTE | 2021-01-29 06:00 | NUR ---
CHANGED DRSG TO BILAT HEELS, DRY-CRACKING NOTED, HEALING WELL, APPLIED BETADINE GAUZE AND KERLIX. PT TOELRATED WELL. BED LOW, ALARM ON, CL IN REACH.
[2021-01-29 07:02] LABS: CALCIUM 9.8 mg/dL (8.5-10.1); CARBON DIOXIDE 17.5 mmol/L (21.0-32.0); CREATININE - SERUM 1.6 mg/dL (0.6-1.3); POTASSIUM - SERUM 3.5 mmol/L (3.5-5.1)
[2021-01-29 07:38] LABS: BASOPHILS 0.3 % (0-2); EOSINOPHILS 4.3 % (0-7); HEMATOCRIT 23.3 % (42.0-54.0); HEMOGLOBIN 7.7 g/dL (13.5-17.5); IMMATURE GRANULOCYTES 0.3 % (0-5); LYMPHOCYTE ABS# 2.75 10x3/uL (1.32-3.57); LYMPHOCYTES 26.9 % (15-50); MCH 30.4 pg (26.0-34.0); MCV 92.1 fL (80.0-100.0); MEAN PLATELET VOLUME 9.9 fL (7.4-10.4); MONOCYTES 12.4 % (2-11); NEUTROPHIL ABS# 5.71 10x3/uL (1.78-5.38); NEUTROPHILS 55.8 % (40-80); PLATELET COUNT 247 10x3/uL (130-400); RBC 2.53 10x6/uL (4.20-6.10); RDW 20.9 % (11.5-14.5); WBC 10.2 10x3/uL (4.8-10.8)
[2021-01-29 08:38] VITALS: BP 144/85
[2021-01-29 12:34] VITALS: BP 157/83
--- NOTE | 2021-01-29 15:52 | NUR ---
OT NOTE: PT UP IN CHAIR. PT COMPLETED SHAVING WITH SETUP AND CUES. PT ENCOURAGED TO USE ELECTRIC RAZOR. BELL MAKER BROUGHT REGULAR RAZOR AT PT REQUEST. PT COMPLETED SHAVING TASK USING ELECTRIC RAZOR. ELECTIC RAZOR PUT BACK IN CASE. PT BRUSED STUBBLE OFF AND REQUIRED MIN A TO [place] CLEAN GOWN. PT COMPLETED CHAIR TO BED TSF WITH CGA. RAZOR DISPOSED OF IN SHARPS CONTAINER. [phone] KRISTY ELENA COTA
[2021-01-29 17:30] VITALS: BP 131/81
--- NOTE | 2021-01-29 19:45 | NUR ---
RECEIVED BEDSIDE REPORT. PT LAYING IN BED A&O X4. HEMOSPLIT TO LEFT CHEST, PATENT AND S/L. INCISION TO RIGHT HIP, DRSG C/D/I. DRSG TO BILAT HEELS, C/D/I. PT ABLE TO AMBULATE WITH MOD ASSIST TO BSC/CHAIR. EDUCATED PT ON CL AND NEEDS, VERBALIZED UNDERSTANDING. BED LOW, ALARM ON, CL IN REACH.
[2021-01-29 21:02] VITALS: BP 129/66; BP 145/82
[2021-01-30 09:15] VITALS: BP 149/98
[2021-01-30 13:50] VITALS: BP 140/83
[2021-01-30 18:34] VITALS: BP 140/82
--- NOTE | 2021-01-30 19:42 | NUR ---
PATIENT RESTING IN BED WITH NO S/S OF DISTRESS. PATIENT REQUESTED PAIN MED AND BENADRYL. EXPLAINED TO PATIENT THAT NEITHER MED IS AVAILABLE AT THIS TIME, HOWEVER, I WOULD BRING HIS PAIN MED TO HIM AT 2020 WHEN AVAILABLE. PATIENT VERBALIZED UNDERSTANDING. PATIENT DENIES OTHER NEEDS AT THIS TIME. BED IN LOWEST POSITION AND CALL LIGHT IN REACH. ENCOURAGED PATIENT TO CALL WITH OTHER NEEDS.
[2021-01-30 20:00] VITALS: BP 134/81
--- NOTE | 2021-01-30 20:21 | NUR ---
ADMINISTERED MEDS PER ORDERS. PATIENT WAGNER WELL. ENCOURAGED TO CALL WITH NEEDS.
[2021-01-31 04:00] VITALS: BP 158/88
[2021-01-31 10:07] VITALS: BP 144/80
[2021-01-31 14:15] VITALS: BP 143/78
--- NOTE | 2021-01-31 14:30 | NUR ---
LEFT HIP INCISION DRESSING REMOVED BY FRIDA COLIN. INCISION IS CDI WITH JOZEF IN PLACE. NO DRAINAGE OR SIGNS OF INFECTION. BILATERAL HEEL DRESSINGS CHANGED AT THIS TIME BY FRIDA COLIN PER DRESSING CHANGE ORDERS. PATIENT TOLERATED WITH NO PAIN. IV INTACT. NO COMPLAINTS. CALL LIGHT WITHIN REACH.
--- NOTE | 2021-01-31 18:01 | NUR ---
PATIENT IN BED WITH EYES CLOSED RESTING QUIETLY. CALL LIGHT WITHIN REACH.
[2021-01-31 18:03] VITALS: BP 140/80
[2021-01-31 20:00] VITALS: BP 148/85
--- NOTE | 2021-02-01 03:00 | NUR ---
I have reviewed this patient and I concur with the Shift Assessment completed by the Licensed Practical Nurse today this shift.
[2021-02-01 04:00] VITALS: BP 153/94
[2021-02-01 08:35] VITALS: BP 146/88
--- NOTE | 2021-02-01 08:45 | NUR ---
UP ON BSC. WANTS TO KNOW ABOUT PAIN ,EDS. ALSO WANTS TO KNOW ABOUT STITCHES IN LEG. TO ROUND SOON AND PUT ORDERS IN IF OK TO REMOVE. ADRIANA WILL GET PAIN MEDS WHEN TIME AROUND 0900.
--- NOTE | 2021-02-01 09:39 | NUR ---
PATIENT INQUIRED ON REMOVAL OF SUTURES ON RT HIP, TOLD PATIENT I WILL NEED ORDERS BEFORE REMOVAL, ADMINISTERED PRN MEDICATIONS WITH SCHEDULED MEDS. CONTINUE WITH PLANO F CARE
--- NOTE | 2021-02-01 11:31 | NUR ---
PATIENT UP TO BEDSIDE COMODE ON HIS OWN, HAD WALKED AROUND NURSING STATION WITH PHYSICAL THERAPY. NO OTHER NEEDS VOICED AT THIS TIME. CONTINUE WITH PLAN OF CARE
[2021-02-01 12:52] VITALS: BP 158/87
--- NOTE | 2021-02-01 15:46 | NUR ---
Nutrition Follow-up: [facility]: [facility] with thin liquids PO intake: 50% x 3 meals recorded on 01/30/21 Last BM: 01/31/21 Wt: 217# (12/03/20)- no new weight Meds noted: probiotics, abx, magox, retacrit Labs noted (01/29/21): BUN 22(H), Cr 1.6(H), GFR 48(L) Recommedations: -Needs new weight at medically feasible. -Recommend continue current diet/or per PRODUCTION TEAM LEADER recommendations. Will continue to honor food preferences within diet restrictions. -Will add Ensure with meals. -RD will follow-up 02/04/21.
[2021-02-01 17:23] VITALS: BP 153/88
--- NOTE | 2021-02-01 17:59 | NUR ---
OT NOTE: REFUSED TMT SECONDARY TO VERY LATE AFTERNOON. WILL ATTEMPT AGAIN TOMORROW SARAH ANDERSON, OTR/L
--- NOTE | 2021-02-01 19:00 | NUR ---
BEDSIDE REPORT RECEIVED AND CARE OF PT ASSUMED. PT LYING IN LOW CARDENAS'S POSITION WITH EYES CLOSED. PEG TUBE PATENT WITH GLUCERNA INFUSING VIA PUMP AT 50 ML/HR. IV TO RIGHT FA PATENT WITH NS INFUSING AT 50 ML/HR. O2 IN USE VIA NC AT 2L. WILL MONITOR FOR NEEDS.
[2021-02-01 20:00] VITALS: BP 111/81
--- NOTE | 2021-02-01 21:17 | NUR ---
HS MEDICATIONS GIVEN. WILL CONTINUE TO MONITOR FOR NEEDS.
[2021-02-02] VITALS: BP 150/94
--- NOTE | 2021-02-02 03:46 | NUR ---
GAVE NORCO PO AND BENADRYL PO PER PRN ORDER, PER PT REQUEST FOR ACHING PAIN IN HIP AND FEET AT LEVEL 6/10. WILL MONITOR FOR EFFECTIVENESS.
[2021-02-02 04:00] VITALS: BP 145/84
--- NOTE | 2021-02-02 07:21 | NUR ---
CALL LIGHT ON. PATIENT DENIES NEEDS,BUT SAYS HE WANTS HIS MEDS AT 0900. STATES HE THOUGHT IT WAS TIME FOR MEDS,BUT TO EARLY FOR PAIN MEDS
[2021-02-02 08:52] VITALS: BP 121/75
--- NOTE | 2021-02-02 09:31 | NUR ---
PATIENT ON CL INQUIRING ON MEDICATIONS AND IF DUE YET, INFORMED PATIENT HE STILL HAD ANOTHER HOUR. NO OTHER NEEDS AT THIS TIME, ADMINISTERED SCHEDULED NEDICATIONS, PATIENT IS UP AT BEDSIDE EATING BREAKFAST, CONTINUE WITH PLAN OF CARE
[2021-02-02 13:07] VITALS: BP 154/100
--- NOTE | 2021-02-02 15:30 | NUR ---
PATIENT POTATO INSPECTOR LIGHT FOR MEDICATIONS, ADMINISTERED PRN MEDICATIONS WELL SCHEDULED MEDICATIONS. NO OTHER NEEDS VOICED AT THIS TIME. CONTINUE WITH PLAN OF CARE
[2021-02-02 16:53] VITALS: BP 136/79
--- NOTE | 2021-02-02 16:57 | NUR ---
OT NOTE: PT COMPLETED BED MOBILITY WITH SBA. PT COMPLETED SUPINE TO SIT WITH SBA. PT COMPLETED SIT TO STAND WITH SBA. PT COMPLETED ADL MOB USING RW REQUIRED SBA. PT COMPLETED HAND HYGIENE AT SINK WITH SBA. PT COMPLETED FACE HYGIENE WITH SBA. [phone] KRISTY ELENA COTA
--- NOTE | 2021-02-02 17:23 | NUR ---
OT NOTE: PT IN BED; AGREEABLE TO THERAPY. PT ABLE TO PERFORM TOILET TRANSFERS TO AND FROM BS COMMODE WITHOUT ASSIST; AMB IN ROOM WITH WALKER AND SPV; STANDING AT SINK FOR SINK HYGIENE WITH WALKER AND SBA; BED MOB INDEP; AMB INTO HALLWAY GREATER THAN 100 FT WITH WALKER AND CUES FOR HIP EXT ROTATION WITH WALKER AND CGA SARAH ANDERSON, OTR/L [phone]
[2021-02-02 20:00] VITALS: BP 158/87
--- NOTE | 2021-02-02 21:00 | NUR ---
PT SITTING UP IN BED WITHOUT DISTRESS, AOX4. STATES PAIN 6/10 TO BACK, HIP AND HEELS. GAVE NORCO ORDERED. PROVIDED ICE WATER. BILAT HEEL PROTECTORS ON. DENIES OTHER NEEDS AT THIS TIME. CL IN REACH, BED ALARM ON
[2021-02-03] VITALS: BP 152/86
[2021-02-03 04:00] VITALS: BP 107/62
[2021-02-03 08:29] VITALS: BP 145/98
[2021-02-03 12:04] VITALS: BP 134/81; BP 156/78
--- NOTE | 2021-02-03 14:55 | MORECARE ---
CASE MANAGEMENT DISCHARGE SUMMARY PATIENT: BILL MCKAY UNIT: [id number] ADM DATE: 11/29/20 AGE: 55 : 63 SEX: M ROOM/BED: D.2237 AUTHOR: RAÚL,DOC PHYSICIAN: REFERRING PHYSICIAN: KENNY LOPEZ MD DATE OF SERVICE: 02/03/21 Case Management Discharge Planning Summary COMMENTS ENTERED DATE: 02/03/21 14:41 CT COMMENT TYPE: Discharge Planning REVIEWER: Flora Valdes CM SPOKE WITH TARIQ GAYTAN RN CM AT [facility]. CM WILL CONTACT HER WHEN PATIENT IS READY FOR DISCHARGE AND SHE WILL MEET HIM AT HIS HOUSE AND GET HIM SET UP WITH SERVICES, AN AID, MEALS ON WHEELS, ETC. I WILL ALSO GET PATIENT SET UP WITH HOME HEALTH, WALKER AND BEDSIDE COMMODE FOR HOME. HE IS SCHEDULED TO HAVE A PROCEDURE TOMORROW. CM TO FOLLOW AND ASSIST NEEDED. ENTERED DATE: 01/21/21 14:00 CT COMMENT TYPE: Discharge Planning REVIEWER: Flora Valdes SPEECH THERAPY CONSULT ORDERED. I RECEIVED A VOICE MAIL FROM [facility] AND THEY STATED PATIENT SHOULD QUALIFY FOR 14 HOURS OF INHOME CARE PER WEEK. I WILL FOLLOW UP WITH THEM AND SEE WHAT PROGRAMS HE MAY QUALIFY FOR THROUGH THEM WITH HIS MEDICAID. DISCHARGE ORDER ON HOLD, PATIENT NEEDS TO BE ABLE TO GET IN AND OUT OF BED AND DO FOR HIMSELF WITHOUT ASSISTANCE IN ORDER TO SAFELY RETURN HOME PER ORTHO. CM TO FOLLOW AND ASSIST NEEDED. ENTERED DATE: 01/01/21 11:04 CT COMMENT TYPE: Discharge Planning REVIEWER: Flora Valdes CM SPOKE WITH PATIENT THIS MORNING ABOUT DISCHARGE PLANNING. HE IS VERY SHORT OF BREATH, HE IS ON OXYGEN VIA NASAL CANNULA. HE SAID HIS PLAN IS TO RETURN TO HOME WHEN HE IS ABLE TO STAND. I TALKED WITH HIM ABOUT HIS NEED FOR DIALYSIS AND IT WILL BE THREE TIMES PER WEEK. HE STATES GETTING TO AND FROM DIALYSIS WILL BE A PROBLEM. HE HAS MEDICAID, I WILL CALL AND SEE IF HE CAN GET SET UP WITH [facility] FOR TRANSPORT TO AND FROM DIALYSIS. I ALSO TALKED WITH HIM ABOUT THE IMPORTANCE OF WORKING WITH PHYSICAL THERAPY BECUASE IF HE IS NOT SAFE TO RETURN HOME HE WILL NEED TO GO TO A PRISON. HE STATES HE WILL BE ABLE TO GO HOME ONCE HE IS WELL. CM WILL FOLLOW AND ASSIST NEEDED. DCP REVIEW SUMMARY ANTICIPATED D/C DATE: EXPECTED LOS : 0 CASE STATUS: DCP Initiated INITIAL REVIEW: 12/29/2020 INITIAL REVIEWER: Flora Valdes FINAL DISCHARGE DISPOSITION: : FINAL REVIEWER: FINAL REVIEW DATE: DCP [employer] Questions & Answers QUESTION: ANSWER : PATIENT: BILL MCKAY ENCOUNTER: [id number] MEDICAL RECORD#: [id number] ADMISSION DATE: 11/29/2020 DISCHARGE DATE: ATTENDING MD: KENNY MCKNIGHT : AGE: 55 MARITAL STATUS: S DC PLAN ID: [id number] FACILITY: [facility] PRINTED ON: 02/03/21 14:55 CT All edits/amendments must be made on the electronic document DICTATION DATE: 02/03/211454 FIGHTING VEHICLE SYSTEMS MAINTAINER: PAULINE 02/03/21 145 RPT#: [id number] DC DATE: STATUS: ADM IN [facility] [address] [place] [address] END OF REPORT
[2021-02-03 17:50] VITALS: BP 64/90
--- NOTE | 2021-02-03 18:45 | NUR ---
I have reviewed this patient and I concur with the Shift Assessment completed by the Licensed Practical Nurse today this shift.
[2021-02-03 20:00] VITALS: BP 139/78
--- NOTE | 2021-02-03 21:00 | NUR ---
PT SITTING UP ON SIDE OF BED WITHOUT DISTRESS. BILAT HEEL PROTECTORS ON. STATES PAIN TO BACK AND HIP 05/25. GAVE NORCO ORDERED. PROVIDED ICE WATER. BED ALARM. DENIES OTHER NEEDS AT THIS TIME. CL IN REACH
[2021-02-04] VITALS: BP 141/76
[2021-02-04 04:00] VITALS: BP 140/76
--- NOTE | 2021-02-04 09:05 | NUR ---
PATIENT UP OUT OF BED SEVERAL TIMES. CL IN REACH, BED ALARM ON PATIENT IS TO HAVE PROCEDURE TODAY ABOUT NO9ON. ADMINISTERED PRN PAIN MEDICATIONS. CONTINUE WITH PLAN OF CARE
[2021-02-04 09:12] VITALS: BP 142/76
[2021-02-04 11:51] LABS: BASOPHILS 0.2 % (0-2); EOSINOPHILS 6.1 % (0-7); HEMATOCRIT 23.9 % (42.0-54.0); HEMOGLOBIN 7.9 g/dL (13.5-17.5); IMMATURE GRANULOCYTES 0.2 % (0-5); LYMPHOCYTE ABS# 3.69 10x3/uL (1.32-3.57); MCH 30.9 pg (26.0-34.0); MCHC 33.1 g/dL (31.0-37.0); MCV 93.4 fL (80.0-100.0); MEAN PLATELET VOLUME 9.5 fL (7.4-10.4); MONOCYTES 8.6 % (2-11); NEUTROPHIL ABS# 5.25 10x3/uL (1.78-5.38); NEUTROPHILS 49.9 % (40-80); PLATELET COUNT 274 10x3/uL (130-400); RBC 2.56 10x6/uL (4.20-6.10); RDW 19.7 % (11.5-14.5); WBC 10.5 10x3/uL (4.8-10.8)
[2021-02-04 12:13] LABS: ALBUMIN 4.4 g/dL (3.4-5.0); ANION GAP 19.4 mmol/L (8-16); BILIRUBIN - TOTAL 1.29 mg/dL (0.2-1.3); CALCIUM 11.1 mg/dL (8.5-10.1); CARBON DIOXIDE 17.3 mmol/L (21.0-32.0); CREATININE - SERUM 1.8 mg/dL (0.6-1.3); POTASSIUM - SERUM 4.7 mmol/L (3.5-5.1); PROTEIN - SERUM 8.3 g/dL (6.4-8.2)
--- NOTE | 2021-02-04 13:41 | NUR ---
RECEIVED CALL TO PREOP PATIENT, ADMINISTER PRE OP MED, FLUIDS WELL ABX AND TUBING PLACED ON BED. NO OTHER NEEDS VOICED CONTINUE WITH PLAN OF CARE
[2021-02-04 13:46] VITALS: BP 136/81
--- NOTE | 2021-02-04 14:46 | NUR ---
I have reviewed this patient and I concur with the Shift Assessment completed by the Licensed Practical Nurse today this shift.
--- NOTE | 2021-02-04 14:49 | NUR ---
NUTRITION FOLLOW UP: COMMENTS: Patient on the phone during visit. No recent PO intake recorded. Last weight recorded in November. DIET: NPO After Midnight PO INTAKE: N/A WEIGHT: 216 on 12/03 BM: x 1 on 01/31 SIG MEDS: Probiotic, KCl, MagOx, Nystatin, Albumin, Pepcid, Humulin, MVI, Thiamine SIG LABS: Cr-1.8(H), Ca-11.1(H), AST-186(H), ALT-107(H) RECOMMENDATIONS: Advance diet when medically feasible Offer nutritional supplements with diet advancement Obtain new weight Suggest daily bowel regimen due to last BM recorded on 01/31 RD to follow up on 02/08
[2021-02-04 17:29] VITALS: BP 143/77
--- NOTE | 2021-02-04 17:35 | NUR ---
RECEIVED PATIENT BACK TO ROOM PATIENT IS ASLEEP AND EASILY AWAKENED. STATED " YOU HIT ME" WHEN AWAKENED EXPLAINED HE JUST HAD AN I&D AND NAILING AND IT MAY SEEM LIKE SO. STARTED ABX, PATIENT HAS TRAY AT BEDSIDE, VSS CONTINUE WITH PLAN OF CARE
[2021-02-05] VITALS (20 sets, daily range): BP systolic 97–164; BP diastolic 65–94
--- NOTE | 2021-02-05 02:00 | NUR ---
TRANSFERRED PT TO ROOM CV08 AND CONNECTED TO VENT. ICU MONITORS ATTACHED. VSS STABLE AT THIS TIME. BILATERAL WRIST RESTRAINTS APPLIED DUE TO PATIENT MOVING AROUND AND REACHING FOR TUBE. NEW 20 G IV STARTED IN RIGHT FOREARM. NO S/S OF DISTRESS NOTED AT THIS TIME. WILL CONTINUE TO MONITOR.
--- NOTE | 2021-02-05 02:03 | NUR ---
PATIENT AWOKE, REQUESTING FOOD AND PAIN MEDICATION. PATIENT AWAKE AND FULLY ALERT, AOX4. WARMED UP PATIENT'S FOOD FOR HIM AND WENT BACK TO ROOM TO NOTIFY PATIENT THAT MEDICATION ORDER HAD TO BE RENEWED AND IT WOULD TAKE A FEW MINUTES BEFORE I COULD PULL IT. PATIENT ASKING TO GET UP TO BEDSIDE COMMODE. ASSISTED PATIENT TO STAND USING WALKER. WHEN TURNING, PATIENT'S LEGS STARTED TO SHAKE. ATTMEPTED TO REDIRECT PATIENT TO BED BUT HIS KNEES BEGAN TO GIVE OUT. GRABBED PATIENT UNDER EACH ARM FROM BEHIND AND LOWERED TO FLOOR. NOTED BLOOD ON FRONT OF GOWN. PATIENT NOTED TO HAVE DECREASED RESPONSIVENESS. APPLIED PRESSURE TO CHEST AND CALLED FOR ASSISTANCE. RAPID CALLED. PATIENT NOTED TO HAVE AGONAL BREATHING. CODE CALLED AND PATIENT LIFTED TO BED WITH BODY BOARD. PATIENT INTUBATED. DR. LOPEZ NOTIFIED VIA PHONE OF EVENTS, NO ORDERS RECIEVED. PATIENT TRANSFERRED TO CVICU. REPORT GIVEN AT BEDSIDE. CALLED EMERGENCY CONTACT LISTED IN CHART, VOICEMAIL INDICATED THAT NUMBER BELONGED TO BILL MCKAY, NOT FELICIANO STEELE. LEFT MESSAGE WITH MY NAME AND CALL BACK NUMBER.
[2021-02-05 02:14] LABS: BASOPHILS 0.1 % (0-2); EOSINOPHILS 4.7 % (0-7); HEMATOCRIT 23.9 % (42.0-54.0); HEMOGLOBIN 7.9 g/dL (13.5-17.5); IMMATURE GRANULOCYTES 0.2 % (0-5); LYMPHOCYTE ABS# 3.01 10x3/uL (1.32-3.57); MCH 31.1 pg (26.0-34.0); MCHC 33.1 g/dL (31.0-37.0); MCV 94.1 fL (80.0-100.0); MEAN PLATELET VOLUME 8.8 fL (7.4-10.4); MONOCYTES 6.4 % (2-11); NEUTROPHIL ABS# 7.64 10x3/uL (1.78-5.38); NEUTROPHILS 63.6 % (40-80); PLATELET COUNT 249 10x3/uL (130-400); RBC 2.54 10x6/uL (4.20-6.10); RDW 19.3 % (11.5-14.5)
[2021-02-05 02:15] LABS: ANION GAP 18.1 mmol/L (8-16); CALCIUM 9.9 mg/dL (8.5-10.1); CARBON DIOXIDE 19.1 mmol/L (21.0-32.0); POTASSIUM - SERUM 5.2 mmol/L (3.5-5.1)
--- NOTE | 2021-02-05 12:18 | NUR ---
Nutrition Reassessment/Follow-up: POD 1 TFN and I&D. Intubated/sedated following code overnight. Receiving Diprivan @ 33.9 mL/hr at time of visit this AM; provides 895 kcal daily. Discussed in IDT rounding. Per Dr. May, possible extubation tomorrow; if not able to extubate, will start TF. Wt: 190.6# (02/05); 217# (11/29 - stated) Labs noted: K+ 5.2, BUN 21, Cre 2.0, GFR 45, Glu 118 Meds noted: Diprivan, albumin, Pepcid, thiamine, electrolyte protocol Est needs: 2127 kcal/day (PSU ) 70-85 g protein/day (0.8-1 g/kg) 2127 mL fluid/day (1 mL/kcal) or per MD *Inadequate energy intake R/T intubation AEB NPO status. -If pt remains intubated, rec Nepro @ goal rate of 40 mL/hr; provides 1728 kcal (81% est needs) & 78 g protein (92-111% est needs) daily. Nepro rec 2/2 elev K+; will monitor. Also receiving kcal from Diprivan. -RD follow-up: 02/08
--- NOTE | 2021-02-05 16:35 | NUR ---
STARTED PATIENT ON A 30 MIN PS TRIAL 07/20 AT 0945 HRS. ENDED PS TRIAL AT 1015 HRS. TOTAL TIME WAS [address] TUCKER.
[2021-02-06] VITALS (24 sets, daily range): BP systolic 144–170; BP diastolic 75–96
--- NOTE | 2021-02-06 02:10 | NUR ---
UPON TRYING TO REPOSITION PATIENT, NOTED THAT EXTERNAL CATHETER IS NOT INTACT AND PATIENT INCONTINENT OF MODERATE AMT OF URINE. CHG BATH DONE, COMPLETE LINEN CHANGE AND NEW EXTERNAL CATH APPLIED.
--- NOTE | 2021-02-06 11:23 | NUR ---
Pt extubated and is now resting in bed and on the Bipap for a little while, no distress noted.
[2021-02-07] VITALS (12 sets, daily range): BP systolic 134–172; BP diastolic 83–102
[2021-02-07 04:31] LABS: BASOPHILS 0.3 % (0-2); HEMOGLOBIN 7.8 g/dL (13.5-17.5); IMMATURE GRANULOCYTES 0.2 % (0-5); LYMPHOCYTE ABS# 1.75 10x3/uL (1.32-3.57); LYMPHOCYTES 15.3 % (15-50); MCH 30.6 pg (26.0-34.0); MCHC 32.5 g/dL (31.0-37.0); MCV 94.1 fL (80.0-100.0); MEAN PLATELET VOLUME 9.1 fL (7.4-10.4); MONOCYTES 7.6 % (2-11); NEUTROPHIL ABS# 8.17 10x3/uL (1.78-5.38); NEUTROPHILS 71.6 % (40-80); PLATELET COUNT 252 10x3/uL (130-400); RBC 2.55 10x6/uL (4.20-6.10); RDW 18.8 % (11.5-14.5); WBC 11.4 10x3/uL (4.8-10.8)
[2021-02-07 04:39] LABS: ANION GAP 21.3 mmol/L (8-16); CALCIUM 11.2 mg/dL (8.5-10.1); CARBON DIOXIDE 14.7 mmol/L (21.0-32.0); CREATININE - SERUM 2.1 mg/dL (0.6-1.3)
--- NOTE | 2021-02-07 09:08 | NUR ---
BEDSIDE SWALLOW EVAL PERFORMED AND REG DIET OKAYED PER DR. TUCKER.
--- NOTE | 2021-02-07 09:08 | NUR ---
DR. ZAZUETA AND DR. TUCKER. HERE. ORDERS RECEIVED.
--- NOTE | 2021-02-07 11:37 | NUR ---
PT HAS 1 EMESIS AND HAS 1 LARGE LOOSE BM. ZOFRAN GIVEN, IV INFILTRATED. IV RESTART ATTEMPTED X 2 BY MY WITHOUT SUCCESS. BED BATH GIVEN AND DRSGS ARE CHANGED TO HIP AND HEELS. AWAITING IV START.
--- NOTE | 2021-02-07 11:55 | NUR ---
UNABLE TO GET IV BY SECOND NURSE. DR. ZAZUETA PAGED TO OK IV OUT. ANABEL GALLARDO ORDERED.
--- NOTE | 2021-02-07 12:15 | NUR ---
REPORT GIVEN TO ANNMARIE.
--- NOTE | 2021-02-07 13:22 | NUR ---
PT REC'D FROM ICU. PT IS CONFUSED, ORIENTED TO SELF. PT HAS NO IV ACCESS, DR IS AWARE. PT CONDOM CATH IN PLACE, VOIDING CLEAR YELLOW URINE. PT HEELS ELEVATED. PREV NURSE REPORTS ALL DRESSINGS CHANGED TODAY.
--- NOTE | 2021-02-07 20:20 | NUR ---
EVELYN AGUILAR ATTENDING AT 1956, DR ZAZUETA CALLED BACK AT 2005, INFORMED THAT PATIENT HAD COFFEE GROUND EMESIS AND WAS GIVEN ZOFRAN. DR ZAZUETA ORDERED PEPCID 20MG BID, PROTONIX 40 MG QD WITH A DOSE NOW, AND H&H IN THE MORNING. ORDERES WERE REPEATED BACK WITH CONFIRMATION AND ENTERED.
--- NOTE | 2021-02-08 01:58 | NUR ---
PAGED DR ZAZUETA ON 02/07/21 AT 5340 TO INFORM HIM THE PATIENT ALLOWED A NEW IV TO BE PLACED AND THAT THE PATIENT WAS STILL HAVING COFFEE GROUND EMESIS. DR ZAZUETA ORDERED PEPCID, PROTONIX, AND ZOFRAN TO BE GIVEN IV, AND ORDERED D5 1/2 NS AT 100 ML/HR. ORDERES REPEATED BACK WITH CONFIRMATION GIVEN.
[2021-02-08 06:00] LABS: HEMATOCRIT 21.5 % (42.0-54.0)
[2021-02-08 06:09] LABS: HEMOGLOBIN 7.2 g/dL (13.5-17.5)
[2021-02-08 09:07] VITALS: BP 166/86
--- NOTE | 2021-02-08 13:20 | NUR ---
Nutrition follow-up: Diet order: regular PO intake ~50% of meals today; still with some coffee ground emesis per nurse Labs reviewed Wt: 193# Pt just out of ICU +BM, loose Remains in isolation Will continue to provide food choices and honor food preferences Follow-up: 02/12/21
[2021-02-08 14:20] VITALS: BP 152/80
[2021-02-08 17:00] VITALS: BP 150/79
--- NOTE | 2021-02-08 17:10 | NUR ---
PT C/O MILD NAUSEA TODAY. KUB COMPLETE, ASSISTED PT TO BATHROOM. NO BM. PT TOOK ONLY CL IN THIS SHIFT.
[2021-02-08 20:00] VITALS: BP 148/81
--- NOTE | 2021-02-08 23:01 | NUR ---
Assumed care of pt after report/rounds. Pt did c/o slight tenderness to ABD but, BSAX4. Pt is in and out of confusion. Continues to remain confused r/t situation. Asked about meds and what they are for. Pt did recognize this nurse but verbalized he was "In some white woman's house this morning and kids were running around". Pt states he does realize he is in the hospital but time and day are really off for him previousley. In bed resting at this time.
[2021-02-09] VITALS: BP 154/76
[2021-02-09 04:00] VITALS: BP 147/76
--- NOTE | 2021-02-09 05:52 | NUR ---
Pt has had emesis of dark green liquid with some iris like formations in same. BS are now hypoactive to all 4 quadrants and stomach is more distended than on initial assessment last night. Nelafran given per PRN order and o/c for paged, awaiting call back.
--- NOTE | 2021-02-09 06:17 | NUR ---
called back with telephone orders rec'd for: 1) CBC,CMP and KUB - STAT. 2) CT of ABD with contrast if creatinine = or > 150 use contrast, if not, no contrast. Awaiting lab results
[2021-02-09 07:14] LABS: BASOPHILS 0.1 % (0-2); EOSINOPHILS 1.5 % (0-7); HEMATOCRIT 25.5 % (42.0-54.0); IMMATURE GRANULOCYTES 0.2 % (0-5); LYMPHOCYTE ABS# 2.29 10x3/uL (1.32-3.57); MCH 31.1 pg (26.0-34.0); MCHC 34.1 g/dL (31.0-37.0); MCV 91.1 fL (80.0-100.0); MEAN PLATELET VOLUME 9.3 fL (7.4-10.4); MONOCYTES 6.5 % (2-11); NEUTROPHIL ABS# 10.85 10x3/uL (1.78-5.38); NEUTROPHILS 75.7 % (40-80); PLATELET COUNT 285 10x3/uL (130-400); RDW 18.1 % (11.5-14.5); WBC 14.3 10x3/uL (4.8-10.8)
[2021-02-09 07:23] LABS: HEMOGLOBIN 8.7 g/dL (13.5-17.5)
[2021-02-09 07:27] LABS: ANION GAP 19.6 mmol/L (8-16); CALCIUM 10.6 mg/dL (8.5-10.1); CARBON DIOXIDE 16.5 mmol/L (21.0-32.0); CREATININE - SERUM 1.8 mg/dL (0.6-1.3); POTASSIUM - SERUM 4.1 mmol/L (3.5-5.1)
[2021-02-09 07:33] LABS: ALBUMIN 4.3 g/dL (3.4-5.0); BILIRUBIN - TOTAL 1.39 mg/dL (0.2-1.3); PROTEIN - SERUM 9.1 g/dL (6.4-8.2)
[2021-02-09 09:03] VITALS: BP 158/88
[2021-02-09 13:38] VITALS: BP 146/87
--- NOTE | 2021-02-09 15:44 | NUR ---
OT NOTE: (AM) PT COMPLETED ADL MOB WITH MIN-MOD A FROM TOILET TO BED. PT COMPLETED LB HYGIENE WITH MIN A. (PM) PT COMPLETED SUPINE TO SIT WITH MIN A. PT COMPLETED EOB SITTING WITH SBA. PT COMPLETED SIT TO STAND WITH MIN A. [phone] THANK YOU,MARITA JACK
[2021-02-09 17:56] VITALS: BP 157/87
[2021-02-09 20:00] VITALS: BP 150/95
--- NOTE | 2021-02-10 03:43 | NUR ---
PATIENT HAS HAD PAIN MANAGED WITH THE PRESCRIBED PAIN MEDICATION, HE HAS VOMITED 500 ML GREEN VOMIT, ANABEL WORKS FOR A SHORT TIME, HAS THE HICCUPS, HE IS CURRENTLY RESTING IN BED.
[2021-02-10 04:00] VITALS: BP 156/87
--- NOTE | 2021-02-10 07:00 | NUR ---
BED LOW POSITION, CALL LIGHT INR EACH. PT AROUSES TO VOICE. DENIES NEEDS. WILL CONTINUE TO MONITOR.
--- NOTE | 2021-02-10 08:31 | MORECARE ---
CASE MANAGEMENT DISCHARGE SUMMARY PATIENT: BILL MCKAY UNIT: [id number] ADM DATE: 11/29/20 AGE: 55 : 63 SEX: M ROOM/BED: D.2224 AUTHOR: RAÚL,DOC PHYSICIAN: REFERRING PHYSICIAN: KENNY LOPEZ MD DATE OF SERVICE: 02/10/21 Case Management Discharge Planning Summary COMMENTS ENTERED DATE: 02/10/21 8:15 CT COMMENT TYPE: Discharge Planning REVIEWER: Flora Valdes CM CONTINUES TO FOLLOW PATIENT. HE WAS RECENTLY IN ICU, HE IS NOW BACK ON THE MEDICAL SURGICAL UNIT. WBC IS ELEVATED AND HE DID PARTICIPATE WITH PHYSICAL THERAPY YESTERDAY BUT THEY STATED HE WAS LETHARGIC. HE COMPLAINES OF ABDOMINAL PAIN. CT IMPRESSION STATES POSSIBLE SMALL BOWEL OBSTRUCTION WITH ILEUS. DC PLAN IS STILL HOME WITH HOME HEALTH AND [facility] WILL ALSO SEE HIM AT DISCHARGE AND GET HIM SIGNED UP FOR MEALS ON WHEELS AND 15 HOURS OF PATIENT CONTRACT AGENT PER WEEK AND ANY OTHER SERVICES HE MAY QUALIFY FOR. CM WILL CALL [facility] WHEN PATIENT IS MEDICALLY STABLE AND CLOSE TO DISCHARGE. ENTERED DATE: 02/03/21 14:41 CT COMMENT TYPE: Discharge Planning REVIEWER: Flora Valdes CM SPOKE WITH TARIQ GAYTAN RN CM AT [facility]. CM WILL CONTACT HER WHEN PATIENT IS READY FOR DISCHARGE AND SHE WILL MEET HIM AT HIS HOUSE AND GET HIM SET UP WITH SERVICES, AN AID, MEALS ON WHEELS, ETC. I WILL ALSO GET PATIENT SET UP WITH HOME HEALTH, WALKER AND BEDSIDE COMMODE FOR HOME. HE IS SCHEDULED TO HAVE A PROCEDURE TOMORROW. CM TO FOLLOW AND ASSIST NEEDED. ENTERED DATE: 01/21/21 14:00 CT COMMENT TYPE: Discharge Planning REVIEWER: Flora Valdes SPEECH THERAPY CONSULT ORDERED. I RECEIVED A VOICE MAIL FROM [facility] AND THEY STATED PATIENT SHOULD QUALIFY FOR 14 HOURS OF INHOME CARE PER WEEK. I WILL FOLLOW UP WITH THEM AND SEE WHAT PROGRAMS HE MAY QUALIFY FOR THROUGH THEM WITH HIS MEDICAID. DISCHARGE ORDER ON HOLD, PATIENT NEEDS TO BE ABLE TO GET IN AND OUT OF BED AND DO FOR HIMSELF WITHOUT ASSISTANCE IN ORDER TO SAFELY RETURN HOME PER ORTHO. CM TO FOLLOW AND ASSIST NEEDED. ENTERED DATE: 01/01/21 11:04 CT COMMENT TYPE: Discharge Planning REVIEWER: Flora Valdes CM SPOKE WITH PATIENT THIS MORNING ABOUT DISCHARGE PLANNING. HE IS VERY SHORT OF BREATH, HE IS ON OXYGEN VIA NASAL CANNULA. HE SAID HIS PLAN IS TO RETURN TO HOME WHEN HE IS ABLE TO STAND. I TALKED WITH HIM ABOUT HIS NEED FOR DIALYSIS AND IT WILL BE THREE TIMES PER WEEK. HE STATES GETTING TO AND FROM DIALYSIS WILL BE A PROBLEM. HE HAS MEDICAID, I WILL CALL AND SEE IF HE CAN GET SET UP WITH [facility] FOR TRANSPORT TO AND FROM DIALYSIS. I ALSO TALKED WITH HIM ABOUT THE IMPORTANCE OF WORKING WITH PHYSICAL THERAPY BECUASE IF HE IS NOT SAFE TO RETURN HOME HE WILL NEED TO GO TO A GROUP HOME. HE STATES HE WILL BE ABLE TO GO HOME ONCE HE IS WELL. CM WILL FOLLOW AND ASSIST NEEDED. DCP REVIEW SUMMARY ANTICIPATED D/C DATE: EXPECTED LOS : 0 CASE STATUS: DCP Initiated INITIAL REVIEW: 12/29/2020 INITIAL REVIEWER: Flora Valdes FINAL DISCHARGE DISPOSITION: : FINAL REVIEWER: FINAL REVIEW DATE: DCP [employer] Questions & Answers QUESTION: ANSWER : PATIENT: BILL MCKAY ENCOUNTER: [id number] MEDICAL RECORD#: [id number] ADMISSION DATE: 11/29/2020 DISCHARGE DATE: ATTENDING MD: KENNY MCKNIGHT : AGE: 55 MARITAL STATUS: S DC PLAN ID: [id number] FACILITY: [facility] PRINTED ON: 02/10/21 8:30 CT All edits/amendments must be made on the electronic document DICTATION DATE: 02/10/21829 CURB SETTER HELPER: PAULINE 02/10/21829 RPT#: [id number] DC DATE: STATUS: ADM IN [facility] [address] [place] [address] END OF REPORT
[2021-02-10 09:23] VITALS: BP 120/82
[2021-02-10 13:28] VITALS: BP 173/94
--- NOTE | 2021-02-10 15:00 | NUR ---
OT NOTE: PT COMPLETED SUPINE TO SIT WITH CGA-MIN A. PT COMPLETED SIT TO STAND WITH MIN A. PT COMPLETED ADL MOB WITH RW REQUIRED CGA. PT REQUIRED MIN-MOD A TO [place]ON/DOFF GOWN. PT REQUIRED TOTAL A FOR [place]STON SOCKS. PT COMPLETED FACE HYGIENE WITH SETUP. PT REQUIRED EXTENDED TIME TO SEQUENCE TASKS. [phone] THANK YOU,MARITA JACK
--- NOTE | 2021-02-10 17:00 | NUR ---
CHANGED DRESSING TO RIGHT HIP AND BILAT HEELS PER MD ORDERS. PATIENT TOLLERATED WELL. BILAT HEELS SCANT DRAINAGE. RIGHT HIP NO DRAINAGE. ALL SITES FREE FROM SIGNS OF INFECTION.
[2021-02-10 17:47] VITALS: BP 152/91
[2021-02-10 20:00] VITALS: BP 157/86
[2021-02-11 04:00] VITALS: BP 146/72
--- NOTE | 2021-02-11 04:38 | NUR ---
PT IS ASLEEP IN BED. EASY TO BE AWAKEN. ABLE TO MAKE WANTS AND NEEDS KNOWN CLEARLY. NO COMPLAINTS OF PAIN NOR DISTRESS AT THIS TIME. DRESSING ARE INTACT AND DRY. BED IN LOWEST POSITION. CALL LIGHT IN REACH.
[2021-02-11 06:19] LABS: BASOPHILS 0.1 % (0-2); EOSINOPHILS 2.9 % (0-7); HEMATOCRIT 24.8 % (42.0-54.0); HEMOGLOBIN 8.4 g/dL (13.5-17.5); IMMATURE GRANULOCYTES 0.3 % (0-5); LYMPHOCYTE ABS# 3.13 10x3/uL (1.32-3.57); LYMPHOCYTES 22.1 % (15-50); MCH 31.2 pg (26.0-34.0); MCHC 33.9 g/dL (31.0-37.0); MCV 92.2 fL (80.0-100.0); MEAN PLATELET VOLUME 9.3 fL (7.4-10.4); MONOCYTES 7.6 % (2-11); NEUTROPHIL ABS# 9.49 10x3/uL (1.78-5.38); PLATELET COUNT 323 10x3/uL (130-400); RBC 2.69 10x6/uL (4.20-6.10); RDW 17.2 % (11.5-14.5); WBC 14.2 10x3/uL (4.8-10.8)
[2021-02-11 06:37] LABS: ANION GAP 18.9 mmol/L (8-16); CARBON DIOXIDE 16.5 mmol/L (21.0-32.0); CREATININE - SERUM 1.9 mg/dL (0.6-1.3); POTASSIUM - SERUM 4.4 mmol/L (3.5-5.1)
--- NOTE | 2021-02-11 07:42 | NUR ---
RECIEVED REPORT. BED LOW POSITION, CALL LIGHT IN REACH. PATIENT ASLEEP, AROUSES TO VOICE. DENIES NEEDS AT THIS TIME. WILL CONTINUE TO MONITOR.
[2021-02-11 08:27] VITALS: BP 144/69
[2021-02-11 12:43] VITALS: BP 138/76
--- NOTE | 2021-02-11 15:54 | NUR ---
DRESSINGS TO BILAT HEELS CHANGED PER MD ORDERS. DRESSING TO RIGHT HIP CHANGED PER MD ORDERS. PATIENT TOLLERATED WELL. WILL CONTINUE TO MONITOR.
--- NOTE | 2021-02-11 16:51 | NUR ---
OT NOTE: PT COMPLETED ADL MOB TO BATHROOM WITH CGA. PT COMPLETED SUPINE TO SIT WITH CGA. PT COMPLETED TOILETING WITH SBA. PT COMPLETED TOILET HYGIENE WITH MIN A. PT COMPLETED EOB SITTING BALANCE WITH SBA. [phone] KRISTY ELENA COTA
[2021-02-11 18:05] VITALS: BP 152/82
[2021-02-11 20:00] VITALS: BP 158/81
[2021-02-12] VITALS: BP 148/74
--- NOTE | 2021-02-12 02:52 | NUR ---
ASSESSED AT THE BEGINNING OF THE SHIFT. PT IS ALERT AND ABLE TO VERBALIZE NEEDS. 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 HE HAS A LEFT CHEST HEMISPLIT SITE. THERE IS A DRESSING TO HIS RIGHT HIP AND BILATAERAL HEELS WITH DRESSINGS AND PINK HEEL PROTECTORS. HE IS ON ROOM AIR AND HAS HIS SCD'S ON. THERE IS A URINAL AT THE BEDSIE AND HE IS USING IT. HE HAS HIS DINNER TRAY AND ALOT OF DRINKS ON HIS BEDSIDE TABLE BUT WHEN ASKED IF WE CAN CLEAN IT UP HE STATES NO HE IS STILL USING THEM. HE REQUESTED AND DRECEIVED HIS NORCO AND BENADRYL AT ABOUT MIDNIGHT.
[2021-02-12 04:00] VITALS: BP 134/73
[2021-02-12 06:48] LABS: BASOPHILS 0.2 % (0-2); EOSINOPHILS 4.4 % (0-7); HEMOGLOBIN 7.8 g/dL (13.5-17.5); IMMATURE GRANULOCYTES 0.2 % (0-5); LYMPHOCYTE ABS# 2.36 10x3/uL (1.32-3.57); LYMPHOCYTES 22.7 % (15-50); MCHC 33.9 g/dL (31.0-37.0); MCV 91.3 fL (80.0-100.0); MEAN PLATELET VOLUME 8.8 fL (7.4-10.4); MONOCYTES 9.6 % (2-11); NEUTROPHIL ABS# 6.54 10x3/uL (1.78-5.38); NEUTROPHILS 62.9 % (40-80); PLATELET COUNT 311 10x3/uL (130-400); RBC 2.52 10x6/uL (4.20-6.10)
[2021-02-12 06:55] LABS: WBC 10.4 10x3/uL (4.8-10.8)
[2021-02-12 07:10] LABS: ANION GAP 19.3 mmol/L (8-16); CALCIUM 9.6 mg/dL (8.5-10.1); CARBON DIOXIDE 15.6 mmol/L (21.0-32.0); CREATININE - SERUM 1.6 mg/dL (0.6-1.3); POTASSIUM - SERUM 3.9 mmol/L (3.5-5.1)
[2021-02-12 09:41] VITALS: BP 139/79
--- NOTE | 2021-02-12 10:00 | NUR ---
ASSESSMENT PER FLOW SHEET. PATIENT IS WITHOUT DISTRESS. RONNA FOR FALL PREVENTION. MONITOR FOR NEEDS. ISOLATION MAINTAINED
[2021-02-12 12:58] VITALS: BP 148/82
--- NOTE | 2021-02-12 12:59 | NUR ---
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 Nutrition goals: - PO intake will increase to =/> 75% of meals, snacks - Meet est fluid needs without fluid overload - sTable dry wt Interventions: Will provide food choices with selective menus and honor food preferences Will offer and encourage nutritional supplements. RDN follow-up on progress toward nutrition goals: 02/17/21
--- NOTE | 2021-02-12 13:04 | NUR ---
OT NOTE: UPON ENTERING PT WAS SITTING ON BSC. PT URINATED ON FLOOR AND LE. PT REQUIRED MAX A FOR LB HYGIENE. PT COMPLETED FACE AND HAND HYGIENE WITH SETUP. PT REQUIRED MOD A FOR DOFF/HOUSTON GOWN. PT REQUIRED MOD A FOR HOUSTON BRIEF. PT REQUIRED MAX A FOR DOFF SOCKS. PT REQUIRED SBA-CGA FOR BSC TO BED TSF. NURSING NOTIFIED THAT PTS BANDAGES ON FEET WERE SOILED WITH URINE. NURSING STATED SHE WOULD RE DRESS WOUNDS. BED ALARM ON. CL IN REACH. [phone] THANK YOU,MARITA JACK
[2021-02-12 15:55] VITALS: BP 151/90
--- NOTE | 2021-02-12 18:08 | NUR ---
EATING MORE FOOD FOR LUNCH AND DINNER. PATIENT IS WITHOUT DISTRESS. REMAINS WITHOUT CCHANGE. CONT PLAN OF CARE
[2021-02-12 21:12] VITALS: BP 147/77
[2021-02-13 01:14] VITALS: BP 166/82
--- NOTE | 2021-02-13 04:35 | NUR ---
ASSESSED AT THE BEGINNING OF THE SHIFT. PT IS ALERT AND ORIENTED, ABLE TO VERBALIZE NEEDS. HE HAS BEEN WATCHING TV AND EATING JUNK FOOD. 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 THE DRESSING TO HIS RIGHT HIP IS IN PLACE ABD AKSI THE DRESSINGS TO BOTH HIS HEELS. HE HAS BLOOD SUGARS AT HS AND IN THE AM. HE DID NOT REQUIRE ANY INSULIN LAST NIGHT FOR A BS OF 110. IV SITE WS CHECKED AT ONE TIME AT HIS REQUEST BUTA IT FLUSHED WELL AND HE STATED IT DID NOT HURT.
[2021-02-13 05:56] VITALS: BP 152/77
[2021-02-13 06:19] LABS: BASOPHILS 0.1 % (0-2); EOSINOPHILS 3.4 % (0-7); HEMATOCRIT 23.5 % (42.0-54.0); HEMOGLOBIN 7.9 g/dL (13.5-17.5); IMMATURE GRANULOCYTES 0.2 % (0-5); LYMPHOCYTE ABS# 2.21 10x3/uL (1.32-3.57); LYMPHOCYTES 21.5 % (15-50); MCH 30.7 pg (26.0-34.0); MCHC 33.6 g/dL (31.0-37.0); MCV 91.4 fL (80.0-100.0); MONOCYTES 8.8 % (2-11); NEUTROPHIL ABS# 6.79 10x3/uL (1.78-5.38); PLATELET COUNT 308 10x3/uL (130-400); RBC 2.57 10x6/uL (4.20-6.10); RDW 16.5 % (11.5-14.5); WBC 10.3 10x3/uL (4.8-10.8)
--- NOTE | 2021-02-13 07:00 | NUR ---
RESTING IN BED WITH EYES OPEN, ALERT AND ORIENTED. IV LOCATED TO RIGHT FOREARM CURRING RUNNING D5 1/2NS @ 100ML/HR. NO CURRENT S/S OF DISTRESS AT THIS TIME, DENIES NEEDS, WILL CONT TO MONITOR.
[2021-02-13 07:20] LABS: ANION GAP 19.6 mmol/L (8-16); CALCIUM 9.4 mg/dL (8.5-10.1); CARBON DIOXIDE 14.5 mmol/L (21.0-32.0); CREATININE - SERUM 1.4 mg/dL (0.6-1.3); POTASSIUM - SERUM 4.1 mmol/L (3.5-5.1)
--- NOTE | 2021-02-13 08:01 | NUR ---
ASSISSTED PT TO BATHROOM AND BACK TO BED.
[2021-02-13 09:55] VITALS: BP 142/81
[2021-02-13 12:56] VITALS: BP 140/79
[2021-02-13 18:16] VITALS: BP 153/82
[2021-02-13 20:52] VITALS: BP 150/84
--- NOTE | 2021-02-14 | NUR ---
REQUESTED TO HAVE IV TUBING UNHOOKED FROM IV, UPON ENTERING THE ROOM IV PUMP WAS FOUND IN THE OFF POSITION, PUMPED TURNED BACK ON AND THEN LOCKED, PT UNABLE TO TURN PUMP OFF
[2021-02-14 05:25] VITALS: BP 130/81
[2021-02-14 06:41] LABS: BASOPHILS 0.1 % (0-2); EOSINOPHILS 3.2 % (0-7); HEMOGLOBIN 7.8 g/dL (13.5-17.5); IMMATURE GRANULOCYTES 0.1 % (0-5); LYMPHOCYTE ABS# 2.24 10x3/uL (1.32-3.57); LYMPHOCYTES 21.5 % (15-50); MCH 30.8 pg (26.0-34.0); MCHC 33.9 g/dL (31.0-37.0); MCV 90.9 fL (80.0-100.0); MONOCYTES 7.6 % (2-11); NEUTROPHIL ABS# 7.02 10x3/uL (1.78-5.38); NEUTROPHILS 67.5 % (40-80); PLATELET COUNT 325 10x3/uL (130-400); RBC 2.53 10x6/uL (4.20-6.10); RDW 16.7 % (11.5-14.5); WBC 10.4 10x3/uL (4.8-10.8)
[2021-02-14 07:08] LABS: ANION GAP 18.3 mmol/L (8-16); CALCIUM 9.4 mg/dL (8.5-10.1); CARBON DIOXIDE 15.5 mmol/L (21.0-32.0); CREATININE - SERUM 1.3 mg/dL (0.6-1.3); POTASSIUM - SERUM 3.8 mmol/L (3.5-5.1)
--- NOTE | 2021-02-14 09:55 | NUR ---
AAOX4 UPON ENTERING, ADMINISTERED MORNING MEDICATION, NO DIFFICULTIES, TOLERATED WELL. CLEANED PATIENTS ROOM UP. HAS HAD A FULL LINEN CHANGE AND BATH. RESTING IN BED. DENIES ANY NEEDS. BED IN LOWEST POSITION, BED RAILS X2, CALL LIGHT WITHIN REACH. WILL CONTINUE POC.
[2021-02-14 11:28] VITALS: BP 152/86
--- NOTE | 2021-02-14 15:26 | NUR ---
ADMINISTERED MEDICATION, NO DIFFICULTIES. PRN NORCO FOR PAIN. IV INFILTRATED IN RIGHT FOREARM. REMOVED WITH CATHETER TIP INTACT, COVERED WITH GAUZE AND TAPE. TOLERATED WELL. RESTING IN BED. DENIES CURRENT NEEDS. BED IN LOWEST POSITION, BED RAILS X2, CALL LIGHT WITHIN REACH. WILL CONTINUE POC.
[2021-02-14 16:00] VITALS: BP 136/82
--- NOTE | 2021-02-14 17:20 | NUR ---
I have reviewed this patient and I concur with the Shift Assessment completed by the Licensed Practical Nurse today this shift.
[2021-02-14 18:48] VITALS: BP 147/80
--- NOTE | 2021-02-14 19:00 | NUR ---
BEDSIDE REPORT RECEIVED AND CARE OF PT ASSUMED. PT SITTING UP IN CHAIR AT THIS TIME. LEFT HEMOSPLIT HEP LOCKED.
--- NOTE | 2021-02-14 20:59 | NUR ---
HS MEDICATIONS GIVEN TO INCLUDE NORCO AND BENADRYL PER REQUEST FOR PAIN. WILL CONTINUE TO MONITOR FOR NEEDS.
[2021-02-14 22:28] VITALS: BP 158/96
[2021-02-15 06:31] LABS: BASOPHILS 0.1 % (0-2); EOSINOPHILS 4.7 % (0-7); HEMATOCRIT 22.8 % (42.0-54.0); HEMOGLOBIN 7.8 g/dL (13.5-17.5); IMMATURE GRANULOCYTES 0.2 % (0-5); LYMPHOCYTE ABS# 2.49 10x3/uL (1.32-3.57); LYMPHOCYTES 27.3 % (15-50); MCHC 34.2 g/dL (31.0-37.0); MCV 90.5 fL (80.0-100.0); MEAN PLATELET VOLUME 8.8 fL (7.4-10.4); MONOCYTES 8.3 % (2-11); NEUTROPHILS 59.4 % (40-80); PLATELET COUNT 317 10x3/uL (130-400); RBC 2.52 10x6/uL (4.20-6.10); RDW 16.6 % (11.5-14.5); WBC 9.1 10x3/uL (4.8-10.8)
[2021-02-15 06:47] LABS: ANION GAP 19.4 mmol/L (8-16); CALCIUM 9.6 mg/dL (8.5-10.1); CARBON DIOXIDE 16.2 mmol/L (21.0-32.0); CREATININE - SERUM 1.3 mg/dL (0.6-1.3); POTASSIUM - SERUM 3.6 mmol/L (3.5-5.1)
[2021-02-15 09:33] VITALS: BP 149/86
[2021-02-15 13:56] VITALS: BP 154/86
--- NOTE | 2021-02-15 16:29 | NUR ---
OT NOTE: PT COMPLETED BUE AROM WITH FUNCTIONAL WALKER MANAGEMENT. PT COMPETED BED MOB WITH SBA. PT COMPLETED ADL MOB WITH RW REQUIRED CGA. PT COMPLETED UB HYGIENE WITH SETUP. PT REQUIRED EXTENDED TIME TO PROCESS TASK REQUIREMENTS. [phone] KRISTY ELENA COTA
[2021-02-15 17:05] VITALS: BP 142/77
--- NOTE | 2021-02-15 19:00 | NUR ---
BEDSIDE REPORT RECEIVED AND CARE OF PT ASSUMED. PT LYING IN HIGH CARDENAS'S POSITION WATCHING TV. IV TO RIGHT WRIST PATENT WITH D5 1/2 NS INFUSING AT 100 ML/HR. CONTACT ISOLATION PRECAUTIONS IN PLACE. DRESSINGS ON BILATERAL HEELS INTACT WITH HELL PROTECTORS ON TOP. WILL MONITOR FOR NEEDS.
[2021-02-15 20:21] VITALS: BP 144/85
--- NOTE | 2021-02-15 20:36 | NUR ---
HS MEDICATIONS GIVEN. DECLINED FSBS AT THIS TIME.
[2021-02-16 04:30] VITALS: BP 153/87
[2021-02-16 08:38] VITALS: BP 168/90
--- NOTE | 2021-02-16 13:45 | NUR ---
Nutrition follow-up: Walking in scherer with PT. Diet order: Regular PO intake continues to be ~50% average of meals Labs reviewed;Glucose under good control No new wt since 02/06/21 +BM Recommendations: Please get a new wt to EMR Follow-up: 02/22/21
--- NOTE | 2021-02-16 15:08 | NUR ---
0700 BEDSIDE REPORT RECEIVED ASSESSMENT COMPLETE NOTTED RDNSS TO GROIN AREA BUTT PASTE APPLIED ASSISTD WITH REPOSITIONING IN BED OLD LEFT LEG SURGICAL SITE TENDER TO TOUCH
[2021-02-16 16:33] VITALS: BP 162/88
--- NOTE | 2021-02-16 17:57 | NUR ---
1300 AMBULATING AROUND NURSE STATION WITH PT USING WALKER AND BELT. WAGNER WELL
--- NOTE | 2021-02-16 19:38 | NUR ---
OT NOTE: PT DOING WELL; BED MOB WITH SBA FOR SUPINE TO SIT; TRANSFERS TO BS COMMODE WITH SBA; SET UP FOR TOILET HYGIENE; PRACTICED DONNING AND DOFFING SOCKS WITH SET UP; IN ROOM AMBULATION WITH WALKER AND MIN ASSIST. CONT TO REUQIRE CUES FOR FOOT PLACEMENT, BUT MUCH BETTER THAN PREVIOUSLY. GROOMING AND FEEDING WITH SET UP. PT ALERT AND ORIENTED. PTS GRANDMOTHER PREVIOUSLY HERE VISITING. PT CONVERSIVE ABOUT VISIT AND NOW VERY ALERT AND ORIENTED. SARAH ANDERSON, OTR/L
[2021-02-16 20:23] VITALS: BP 161/75
--- NOTE | 2021-02-17 03:29 | NUR ---
PATIENT HAD PAIN MANAGED WITH THE PRESCRIBED PAIN MEDICATIONS, HE IS CURRENTLY RESTING IN BED WITH HIS EYES CLOSED.
[2021-02-17 04:30] VITALS: BP 158/74
[2021-02-17 06:35] LABS: BASOPHILS 0.2 % (0-2); EOSINOPHILS 4.2 % (0-7); HEMATOCRIT 20.8 % (42.0-54.0); IMMATURE GRANULOCYTES 0.2 % (0-5); LYMPHOCYTES 30.4 % (15-50); MCH 30.8 pg (26.0-34.0); MCHC 33.7 g/dL (31.0-37.0); MCV 91.6 fL (80.0-100.0); MEAN PLATELET VOLUME 7.8 fL (7.4-10.4); MONOCYTES 8.4 % (2-11); NEUTROPHIL ABS# 4.83 10x3/uL (1.78-5.38); NEUTROPHILS 56.6 % (40-80); RBC 2.27 10x6/uL (4.20-6.10); RDW 16.7 % (11.5-14.5); WBC 8.6 10x3/uL (4.8-10.8)
[2021-02-17 06:48] LABS: PLATELET COUNT 249 10x3/uL (130-400)
[2021-02-17 07:05] LABS: ANION GAP 16.9 mmol/L (8-16); CALCIUM 9.4 mg/dL (8.5-10.1); CARBON DIOXIDE 17.7 mmol/L (21.0-32.0); CREATININE - SERUM 1.3 mg/dL (0.6-1.3); POTASSIUM - SERUM 3.6 mmol/L (3.5-5.1)
[2021-02-17 08:15] VITALS: BP 165/89
--- NOTE | 2021-02-17 10:52 | NUR ---
1st unit of blood started, pt eating breakfast, dressing to heels bilaterally, cont to monitor
--- NOTE | 2021-02-17 14:05 | NUR ---
1ST UNIT OF BLOOD INFUSED
[2021-02-17 20:00] VITALS: BP 161/91
[2021-02-18] VITALS: BP 157/77
--- NOTE | 2021-02-18 02:23 | NUR ---
pt resting in bed. able to make wants and needs known clearly. no complaints at this time. bed in low position. call light in reach.
[2021-02-18 04:00] VITALS: BP 131/61; BP 162/84
[2021-02-18 06:23] LABS: BASOPHILS 0.1 % (0-2); EOSINOPHILS 4.9 % (0-7); IMMATURE GRANULOCYTES 0.2 % (0-5); LYMPHOCYTE ABS# 2.16 10x3/uL (1.32-3.57); LYMPHOCYTES 22.8 % (15-50); MCH 30.8 pg (26.0-34.0); MCHC 34.7 g/dL (31.0-37.0); MEAN PLATELET VOLUME 8.2 fL (7.4-10.4); MONOCYTES 9.8 % (2-11); NEUTROPHIL ABS# 5.89 10x3/uL (1.78-5.38); NEUTROPHILS 62.2 % (40-80); PLATELET COUNT 237 10x3/uL (130-400); RDW 16.9 % (11.5-14.5); WBC 9.5 10x3/uL (4.8-10.8)
[2021-02-18 06:37] LABS: ANION GAP 15.3 mmol/L (8-16); CALCIUM 9.3 mg/dL (8.5-10.1); CARBON DIOXIDE 19.4 mmol/L (21.0-32.0); CREATININE - SERUM 1.2 mg/dL (0.6-1.3); POTASSIUM - SERUM 3.7 mmol/L (3.5-5.1)
[2021-02-18 06:39] LABS: HEMATOCRIT 28.8 % (42.0-54.0); MCV 88.6 fL (80.0-100.0); RBC 3.25 10x6/uL (4.20-6.10)
--- NOTE | 2021-02-18 07:00 | NUR ---
700 BEDSIDE REPORT RECEIVED AAO X 4 REMAINS IN CONTACT ISOLATION
--- NOTE | 2021-02-18 07:44 | OP ---
PATIENT NAME: BILL FERREIRA MEDICAL RECORD: [id number] :63 LOCATION:[id number] ADMISSION DATE:11/29/20 SURGEON: ETHAN BLUM MD DATE OF OPERATION: 02/04/2021 PREOPERATIVE DIAGNOSES: 1. Rotational defect, right femur, status post nailing of subtrochanteric femur fracture. 2. Right hip wound. POSTOPERATIVE DIAGNOSES: 1. Rotational defect, right femur, status post nailing of subtrochanteric femur fracture. 2. Right hip wound. PROCEDURES PERFORMED: 1. Revision fixation of cephalomedullary nail, right femur, with correction of rotational defect. 2. Incision and debridement, right hip wound (skin and subcutaneous tissue). 3. Closure of complex wound, right hip (4 cm). INDICATIONS FOR THE PROCEDURE: Mr. Ferreira is a 55-year-old male with history of cephalomedullary nailing of right subtrochanteric femur fracture approximately 8 weeks ago. He is doing better, but since he has been up walking more recently, we have noticed a significant internal rotation defect of the right femur causing him to scissor his legs, which makes his ambulation unsafe. I believe this was due to the malrotation during his initial surgery. CT scan of the femur showed some initial healing, but I still believe we would be able to correct this without significant trauma to that fracture site. He also has a wound at the posterolateral mid thigh that continues to have some drainage. We performed I&D and closure of the other proximal hip wounds previously, but this one has just started draining recently and the tissues under this area are very soft. He is agreeable to surgery for revision fixation of the right femur to correct the rotational defect and I&D of the right hip wound with wound closure. Risks, benefits and alternatives of surgery were discussed with the patient and consent was obtained. DESCRIPTION OF PROCEDURE: The patient was met in the holding area where his identity and confirmation of procedure was performed. Right lower extremity was marked. He was taken to the operating room where he was placed supine on the operating table and anesthesia was administered. Right lower extremity was prepped and draped in a sterile fashion. The patient received preoperative antibiotics. A timeout was performed prior to initiating the case. On initiation of the case, the incision was made over the lateral knee in line with the distal locking screw of the nail. The screw head was identified and the screw was removed. Manipulation of the leg was then performed externally rotating the leg until we were able to achieve approximately 30-40 degrees of external rotation. There was some palpable movement of the tissues at the proximal hip with rotation and noted improved rotation of the femur. A locking screw was placed through the proximal hole in the nail using the perfect wy[place] technique. We then again assessed rotation and we felt to have near equal both internal and external rotation at 30-40 degrees. This was much improved from approximately 10 degrees of external rotation and 60 degrees of internal rotation before surgery. A second locking screw was then placed through the distal hole of the nail and this completed our fixation. Final images were OPERATIVE REPORT [id number] BILL FERREIRA obtained of the hip and it did show some movement of the bones proximally as well to confirm our rotation. We then turned our attention to the right hip wound. The tissue at the posterior mid thigh incision was elliptically excised and there was quite a bit of fatty necrosis in the deep tissues. No purulence. Cultures were obtained from this area. The fatty tissue was debrided and the wound was irrigated thoroughly with saline. 2-0 PDS was used to close the deep tissues. The wound was then closed with 3-0 nylon. Total length of closure of the complex wound measured 4 cm. The right knee wound was also irrigated thoroughly with saline. The IT band was reapproximated with PDS suture. Deep tissues were closed with PDS and the skin was closed with michael. Sterile dressing was placed. The patient was turned back over to Anesthesia where he was awakened, extubated, and taken to recovery room in stable condition. POSTOPERATIVE PLAN: The patient is going to return to the floor for continued postoperative care. He will receive 24 hours of postoperative antibiotics; will be started back on DVT prophylaxis tomorrow. Physical therapy will be consulted to assist with mobilization, weightbearing as tolerated, right lower extremity. Continue discharge planning for home. COMPLICATIONS: None. ESTIMATED BLOOD LOSS: 25 mL. ANESTHESIA: General. TRANSINT:[id number] Voice Confirmation ID: [id number] DOCUMENT ID: [id number] ETHAN BLUM MD at 0744 CC: [id number] DICTATION DATE: 02/04/211715 LABORER PIPELINE: 02/04/212146 ADM IN [address] [place] [address]
[2021-02-18 09:19] VITALS: BP 138/85
--- NOTE | 2021-02-18 10:51 | NUR ---
DRESSING CHANGED TO BILATERAL HEELS PER ORDER. PT TOLERATED WELL. BILATERAL HEEL PROTECTORS IN PLACE. FALL PRECAUTIONS IN PLACE. CONTACT PRECAUTIONS FOLLOWED. BED IS IN THE LOWEST POSITION. CALL LIGHT AND BEDSIDE TABLE ARE WITHINR EACH. SIDE RAILS X 2. PT DENIES FURTHER NEEDS. WILL CONT TO MONITOR.
--- NOTE | 2021-02-18 11:19 | NUR ---
1149 PATIENTS LOST ITEMS HAV BEEN LOCATED WENT OVER EVERY ITEM WITH PATIENT: WALLET WHICH CONTAINED SS CARD,DRIVERS LICENSE AND CARDS. PT STATED EVERYTHING HE HAD IN HIS WALLET WAS ALL THERE. ALSO RETURNED TO HIS POSSESSION WAS HIS CELL PHONE AND MARKETING STRATEGY MANAGER, WATCH AND A BOTTLE OF LOTION. PT STATED THAT EVERYTHING WAS RETURNED TO HIM
--- NOTE | 2021-02-18 11:48 | MORECARE ---
CASE MANAGEMENT DISCHARGE SUMMARY PATIENT: BILL MCKAY UNIT: [id number] ADM DATE: 11/29/20 AGE: 55 : 63 SEX: M ROOM/BED: D.2224 AUTHOR: RAÚL,DOC PHYSICIAN: REFERRING PHYSICIAN: KENNY LOPEZ MD DATE OF SERVICE: 02/18/21 Case Management Discharge Planning Summary COMMENTS ENTERED DATE: 02/18/21 11:47 CT COMMENT TYPE: Discharge Planning REVIEWER: Zarina Pollock I HAVE GIVEN THE PATIENT THE INFO TO SET UP SCAT AND EXPLAINED IT TO HIM ENTERED DATE: 02/18/21 11:29 CT COMMENT TYPE: Discharge Planning REVIEWER: Zarina Pollock ANTICIPATE DISCHARGE TOMORROW, I HAVE SPOKE WITH TARIQ GAYTAN WITH [facility] AT [phone]. I TOLD HER THAT WE PLANNED ON DISCHARGING TOMORROW SHE STATED THAT THE NURSE WHO WILL EVALUATE HIM SHOULD BE ABLE TO SEE HIM THE FIRST PART OF NEXT WEEK. HE HAS THE GOOD YADIEL, BUT NOT THE ONE THAT WILL GIVE HIM MEALS ON WHEELS. THEY CAN APPLY FOR THAT AFTER HIS EVALUATION. I HAVE SENT A REFERRAL OVER TO [facility] TO START CARE ON MONDAY. I HAVE SENT DME ORDER FOR [facility] FOR A ROLLATOR, GRAB BARS, BSC, TUB BENCH. THEY WILL DELIVER THE ROLLATOR TO THE HOSPITAL AND EVERYTHING ELSE TO HIS HOME. HE STATED THAT HE HAS ALOT OF FAMILY WHO LIVES ON THE SAME ROAD WITH HIM. EITHER HIS NIECE OR HIS NEPHEW WILL BE HIS WATERSHED PROGRAM MANAGER HOME. CM WILL ASSIST WITH ANY OTHER NEEDS NEEDED. HE WILL NEED TO CALL THE [facility] BUS TO ARRANGE TRANSPORTATION IF HE IS UNABLE TO GET FAMILY TO DRIVE HIM. ENTERED DATE: 02/10/21 8:15 CT COMMENT TYPE: Discharge Planning REVIEWER: Flora Valdes CM CONTINUES TO FOLLOW PATIENT. HE WAS RECENTLY IN ICU, HE IS NOW BACK ON THE MEDICAL SURGICAL UNIT. WBC IS ELEVATED AND HE DID PARTICIPATE WITH PHYSICAL THERAPY YESTERDAY BUT THEY STATED HE WAS LETHARGIC. HE COMPLAINES OF ABDOMINAL PAIN. CT IMPRESSION STATES POSSIBLE SMALL BOWEL OBSTRUCTION WITH ILEUS. 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 CM WILL CALL [facility] AND HOME HEALTH WHEN PATIENT IS MEDICALLY STABLE AND CLOSE TO DISCHARGE. ENTERED DATE: 02/03/21 14:41 CT COMMENT TYPE: Discharge Planning REVIEWER: Flora Valdes CM SPOKE WITH TARIQ GAYTAN RN CM AT [facility]. CM WILL CONTACT HER WHEN PATIENT IS READY FOR DISCHARGE AND SHE WILL MEET HIM AT HIS HOUSE AND GET HIM SET UP WITH SERVICES, AN AID, MEALS ON WHEELS, ETC. I WILL ALSO GET PATIENT SET UP WITH HOME HEALTH, WALKER AND BEDSIDE COMMODE FOR HOME. HE IS SCHEDULED TO HAVE A PROCEDURE TOMORROW. CM TO FOLLOW AND ASSIST NEEDED. ENTERED DATE: 01/21/21 14:00 CT COMMENT TYPE: Discharge Planning REVIEWER: Flora Valdse SPEECH THERAPY CONSULT ORDERED. I RECEIVED A VOICE MAIL FROM [facility] AND THEY STATED PATIENT SHOULD QUALIFY FOR 14 HOURS OF INHOME CARE PER WEEK. I WILL FOLLOW UP WITH THEM AND SEE WHAT PROGRAMS HE MAY QUALIFY FOR THROUGH THEM WITH HIS MEDICAID. DISCHARGE ORDER ON HOLD, PATIENT NEEDS TO BE ABLE TO GET IN AND OUT OF BED AND DO FOR HIMSELF WITHOUT ASSISTANCE IN ORDER TO SAFELY RETURN HOME PER ORTHO. CM TO FOLLOW AND ASSIST NEEDED. ENTERED DATE: 01/01/21 11:04 CT COMMENT TYPE: Discharge Planning REVIEWER: Flora Valdes CM SPOKE WITH PATIENT THIS MORNING ABOUT DISCHARGE PLANNING. HE IS VERY SHORT OF BREATH, HE IS ON OXYGEN VIA NASAL CANNULA. HE SAID HIS PLAN IS TO RETURN TO HOME WHEN HE IS ABLE TO STAND. I TALKED WITH HIM ABOUT HIS NEED FOR DIALYSIS AND IT WILL BE THREE TIMES PER WEEK. HE STATES GETTING TO AND FROM DIALYSIS WILL BE A PROBLEM. HE HAS MEDICAID, I WILL CALL AND SEE IF HE CAN GET SET UP WITH [facility] FOR TRANSPORT TO AND FROM DIALYSIS. I ALSO TALKED WITH HIM ABOUT THE IMPORTANCE OF WORKING WITH PHYSICAL THERAPY BECUASE IF HE IS NOT SAFE TO RETURN HOME HE WILL NEED TO GO TO A GROUP HOME. HE STATES HE WILL BE ABLE TO GO HOME ONCE HE IS WELL. CM WILL FOLLOW AND ASSIST NEEDED. DCP REVIEW SUMMARY ANTICIPATED D/C DATE: EXPECTED LOS : 0 CASE STATUS: DCP Initiated INITIAL REVIEW: 12/29/2020 INITIAL REVIEWER: Flora Valdes FINAL DISCHARGE DISPOSITION: : FINAL REVIEWER: FINAL REVIEW DATE: DCP Focus Questions & Answers QUESTION: ANSWER : PATIENT: BILL MCKAY ENCOUNTER: [id number] MEDICAL RECORD#: [id number] ADMISSION DATE: 11/29/2020 DISCHARGE DATE: ATTENDING MD: KENNY MCKNIGHT : AGE: 55 MARITAL STATUS: S DC PLAN ID: [id number] FACILITY: [facility] PRINTED ON: 02/18/21 11:48 CT All edits/amendments must be made on the electronic document DICTATION DATE: 02/18/211147 RN SURGICAL PCU: PAULINE 02/18/21 1148 RPT#: [id number] DC DATE: STATUS: ADM IN [facility] [address] [place] [address] END OF REPORT
--- NOTE | 2021-02-18 11:58 | NUR ---
1153 PHYSICAL THERAPY WORKING WITH PATIENT UTILIZING STAIR STEPPING STOOL WAGNER BARRETT
[2021-02-18 12:50] VITALS: BP 164/89
[2021-02-18] MEDS ORDERED: ZYVOX600 MG PO (14:09)
[2021-02-18] MEDS ORDERED: CARDIZEM CD180 MG PO (14:09)
[2021-02-18] MEDS ORDERED: ELIQUIS2.5 MG PO (14:09)
[2021-02-18] MEDS ORDERED: FERROUS SULFAT325 MG PO (14:09)
[2021-02-18] MEDS ORDERED: CATAPRES PO (14:09)
--- NOTE | 2021-02-18 15:57 | NUR ---
DALIA WANG APRN NOTIFIED OF NEED OF HEMOSPLIT CATHETER REMOVAL PRIOR TO DC ON 02/19/21.
[2021-02-18 16:12] VITALS: BP 149/86
--- NOTE | 2021-02-18 16:50 | NUR ---
OT NOTE: PT PERFORMED WELL TODAY. PERFORMED BED MOB WITH SPV; TRANSFERS WITH WALKER AND SPV; ABLE TO HOUSTON/DOFF SOCKS WITH SET UP. PT SCHEDULED TO DC HOME TODAY. SERVICES TO FOLLOW SARAH ANDERSON, OTR/L [phone]
[2021-02-18 20:00] VITALS: BP 158/94
--- NOTE | 2021-02-18 21:56 | NUR ---
PT IS LYING IN BED WATCHING TV. PT COMPLAINED OF PAIN TO BIANCA HEELS/FEET. REQUESTED PAIN MEDICATION AND PAIN MEDICATION WAS GIVEN AND EFFECTIVE. NO OTHER COMPLAINTS OR ANY DISTRESS NOTED AT THIS TIME. ABLE TO MAKE WANTS AND NEEDS KNOWN CLEARLY. BED IN LOWEST POSITION WITH CALL LIGHT IN REACH.
[2021-02-19] VITALS: BP 133/76
[2021-02-19 04:00] VITALS: BP 144/80
[2021-02-19 06:43] LABS: ANION GAP 14.6 mmol/L (8-16); CALCIUM 9.4 mg/dL (8.5-10.1); CREATININE - SERUM 1.1 mg/dL (0.6-1.3); POTASSIUM - SERUM 3.6 mmol/L (3.5-5.1)
[2021-02-19 06:48] LABS: BASOPHILS 0.2 % (0-2); EOSINOPHILS 4.5 % (0-7); HEMATOCRIT 29.4 % (42.0-54.0); HEMOGLOBIN 10.1 g/dL (13.5-17.5); IMMATURE GRANULOCYTES 0.1 % (0-5); LYMPHOCYTE ABS# 2.37 10x3/uL (1.32-3.57); LYMPHOCYTES 26.6 % (15-50); MCH 30.8 pg (26.0-34.0); MCHC 34.4 g/dL (31.0-37.0); MCV 89.6 fL (80.0-100.0); MEAN PLATELET VOLUME 9.3 fL (7.4-10.4); NEUTROPHIL ABS# 5.23 10x3/uL (1.78-5.38); NEUTROPHILS 58.6 % (40-80); RBC 3.28 10x6/uL (4.20-6.10); RDW 16.9 % (11.5-14.5); WBC 8.9 10x3/uL (4.8-10.8)
[2021-02-19 06:52] LABS: PLATELET COUNT 304 10x3/uL (130-400)
--- NOTE | 2021-02-19 07:30 | NUR ---
REC'D IN BED AWAKE AND ALERT. RESP EVEN AND UNLABORED WITH NO DISTRESS NOTED OR VOICED. CAN VOICE NEEDS AND WANTS. NO C/O NOTED OR VOICED. ASSESSMENT COMPLETED. C/L IN REACH AT BEDSIDE.
[2021-02-19 09:40] VITALS: BP 145/73
--- NOTE | 2021-02-19 13:46 | MORECARE ---
CASE MANAGEMENT DISCHARGE SUMMARY PATIENT: BILL MCKAY UNIT: [id number] ADM DATE: 11/29/20 AGE: 55 : 64 SEX: M ROOM/BED: D.2224 AUTHOR: RAÚL,DOC PHYSICIAN: REFERRING PHYSICIAN: KENNY LOPEZ MD DATE OF SERVICE: 02/19/21 Case Management Discharge Planning Summary COMMENTS ENTERED DATE: 02/19/21 13:40 CT COMMENT TYPE: Discharge Planning REVIEWER: Zarina Pollock PATIENT DC HOME TODAY WITH HIS WALKER IN HAND, [facility] START CARE TOMORROW HIS FAMILY WILL BE HIS TELEPHONE ASSEMBLER HOME. [employer] [facility] WILL BE DELIVERING THE REST OF THAT PATIENTS DME TO HIS HOME. CM TO FOLLOW NEEDED ENTERED DATE: 02/18/21 11:47 CT COMMENT TYPE: Discharge Planning REVIEWER: Zarina Pollock I HAVE GIVEN THE PATIENT THE INFO TO SET UP SCAT AND EXPLAINED IT TO HIM ENTERED DATE: 02/18/21 11:29 CT COMMENT TYPE: Discharge Planning REVIEWER: Zarina Pollock ANTICIPATE DISCHARGE TOMORROW, I HAVE SPOKE WITH TARIQ GAYTAN WITH [facility] AT [phone]. I TOLD HER THAT WE PLANNED ON DISCHARGING TOMORROW SHE STATED THAT THE NURSE WHO WILL EVALUATE HIM SHOULD BE ABLE TO SEE HIM THE FIRST PART OF NEXT WEEK. HE HAS THE GOOD YADIEL, BUT NOT THE ONE THAT WILL GIVE HIM MEALS ON WHEELS. THEY CAN APPLY FOR THAT AFTER HIS EVALUATION. I HAVE SENT A REFERRAL OVER TO [facility] TO START CARE ON MONDAY. I HAVE SENT DME ORDER FOR [employer] [facility] FOR A ROLLATOR, GRAB BARS, BSC, TUB BENCH. THEY WILL DELIVER THE ROLLATOR TO THE HOSPITAL AND EVERYTHING ELSE TO HIS HOME. HE STATED THAT HE HAS ALOT OF FAMILY WHO LIVES ON THE SAME ROAD WITH HIM. EITHER HIS NIECE OR HIS NEPHEW WILL BE HIS TELEPHONE ASSEMBLER HOME. CM WILL ASSIST WITH ANY OTHER NEEDS NEEDED. HE WILL NEED TO CALL THE [facility] BUS TO ARRANGE TRANSPORTATION IF HE IS UNABLE TO GET FAMILY TO DRIVE HIM. ENTERED DATE: 02/10/21 8:15 CT COMMENT TYPE: Discharge Planning REVIEWER: Flora Valdes CM CONTINUES TO FOLLOW PATIENT. HE WAS RECENTLY IN ICU, HE IS NOW BACK ON THE MEDICAL SURGICAL UNIT. WBC IS ELEVATED AND HE DID PARTICIPATE WITH PHYSICAL THERAPY YESTERDAY BUT THEY STATED HE WAS LETHARGIC. HE COMPLAINES OF ABDOMINAL PAIN. CT IMPRESSION STATES POSSIBLE SMALL BOWEL OBSTRUCTION WITH ILEUS. DC PLAN IS STILL HOME WITH HOME HEALTH AND [facility] WILL ALSO SEE HIM AT DISCHARGE AND GET HIM SIGNED UP FOR MEALS ON WHEELS AND 15 HOURS OF PATIENT ACADEMIC GUIDANCE SPECIALIST PER WEEK AND ANY OTHER SERVICES HE MAY QUALIFY FOR. CM WILL CALL [facility] AND HOME HEALTH WHEN PATIENT IS MEDICALLY STABLE AND CLOSE TO DISCHARGE. ENTERED DATE: 02/03/21 14:41 CT COMMENT TYPE: Discharge Planning REVIEWER: Flora Valdes CM SPOKE WITH TARIQ GAYTAN RN CM AT [facility]. CM WILL CONTACT HER WHEN PATIENT IS READY FOR DISCHARGE AND SHE WILL MEET HIM AT HIS HOUSE AND GET HIM SET UP WITH SERVICES, AN AID, MEALS ON WHEELS, ETC. I WILL ALSO GET PATIENT SET UP WITH HOME HEALTH, WALKER AND BEDSIDE COMMODE FOR HOME. HE IS SCHEDULED TO HAVE A PROCEDURE TOMORROW. CM TO FOLLOW AND ASSIST NEEDED. ENTERED DATE: 01/21/21 14:00 CT COMMENT TYPE: Discharge Planning REVIEWER: Flora Valdes SPEECH THERAPY CONSULT ORDERED. I RECEIVED A VOICE MAIL FROM [facility] AND THEY STATED PATIENT SHOULD QUALIFY FOR 14 HOURS OF INHOME CARE PER WEEK. I WILL FOLLOW UP WITH THEM AND SEE WHAT PROGRAMS HE MAY QUALIFY FOR THROUGH THEM WITH HIS MEDICAID. DISCHARGE ORDER ON HOLD, PATIENT NEEDS TO BE ABLE TO GET IN AND OUT OF BED AND DO FOR HIMSELF WITHOUT ASSISTANCE IN ORDER TO SAFELY RETURN HOME PER ORTHO. CM TO FOLLOW AND ASSIST NEEDED. ENTERED DATE: 01/01/21 11:04 CT COMMENT TYPE: Discharge Planning REVIEWER: Flora Valdes CM SPOKE WITH PATIENT THIS MORNING ABOUT DISCHARGE PLANNING. HE IS VERY SHORT OF BREATH, HE IS ON OXYGEN VIA NASAL CANNULA. HE SAID HIS PLAN IS TO RETURN TO HOME WHEN HE IS ABLE TO STAND. I TALKED WITH HIM ABOUT HIS NEED FOR DIALYSIS AND IT WILL BE THREE TIMES PER WEEK. HE STATES GETTING TO AND FROM DIALYSIS WILL BE A PROBLEM. HE HAS MEDICAID, I WILL CALL AND SEE IF HE CAN GET SET UP WITH [facility] FOR TRANSPORT TO AND FROM DIALYSIS. I ALSO TALKED WITH HIM ABOUT THE IMPORTANCE OF WORKING WITH PHYSICAL THERAPY BECUASE IF HE IS NOT SAFE TO RETURN HOME HE WILL NEED TO GO TO A HALF-WAY. HE STATES HE WILL BE ABLE TO GO HOME ONCE HE IS WELL. CM WILL FOLLOW AND ASSIST NEEDED. MTP REVIEW SUMMARY ANTICIPATED D/C DATE: EXPECTED LOS : 0 CASE STATUS: DCP Initiated INITIAL REVIEW: 12/29/2020 INITIAL REVIEWER: Flora Valdes FINAL DISCHARGE DISPOSITION: : FINAL REVIEWER: FINAL REVIEW DATE: DCP Focus Questions & Answers QUESTION: ANSWER : PATIENT: BILL MCKAY ENCOUNTER: [id number] MEDICAL RECORD#: [id number] ADMISSION DATE: 11/29/2020 DISCHARGE DATE: ATTENDING MD: KENNY MCKNIGHT : AGE: 55 MARITAL STATUS: S DC PLAN ID: [id number] FACILITY: [facility] PRINTED ON: 02/19/21 13:46 CT All edits/amendments must be made on the electronic document DICTATION DATE: 02/19/21 1346 BUTTON RIVETER: PAULINE 02/19/21 1346 RPT#: [id number] DC DATE: STATUS: ADM IN [facility] [address] [place] [address] END OF REPORT
--- NOTE | 2021-02-19 14:09 | NUR ---
DC HOME AT THIS TIME PRIOR TO DC DR. BEAVERS REMOVED HEMOSPLIT TO LEFT UPPER SCAPULA AREA WITH DRESSING APPLIED TO SITE. NO C/O NOTED OR VOICED. IV DC. STABLE CONDITION UPON DEPARTURE.
--- NOTE | 2021-02-19 15:31 | NUR ---
OT NOTE: PT COMPLETED ADL MOB TO BATHROOM WITH SPV. PT COMPLETED TOILETING WITH SPV. PT COMPLETED HYGIENE WITH SPV. PT COMPLETED SITTING BALANCE WITH FUNCTIONAL TASKS WITH SPV. [phone] KRISTY ELENA COTA
--- NOTE | 2021-02-20 11:32 | MORECARE ---
CASE MANAGEMENT DISCHARGE SUMMARY PATIENT: BILL MCKAY UNIT: [id number] ADM DATE: 11/29/20 AGE: 55 : 63 SEX: M ROOM/BED: D.2224 AUTHOR: RAÚL,DOC PHYSICIAN: REFERRING PHYSICIAN: KENNY MARIE MD DATE OF SERVICE: 02/20/21 Case Management Discharge Planning Summary COMMENTS ENTERED DATE: 02/20/21 11:30 CT COMMENT TYPE: Discharge Planning REVIEWER: Doug vEans Received phone call from [facility], Lexie Borges. Lexie stated that the patient's medications were not called in to (Zyvox, Gabapentin, and Retacrit). Lexie stated that [facility] cannot fill Retacrit and she believes that a prior auth is required. Lexie stated that the patient will pay out of pocket for gabapentin because he has Medicaid. CM informed Lexie that follow up with Dr. Marie through the patient's PCP office on Monday would likely be the best course of action for Retacrit communication. This CM will notify weekday CM staff about retacrit as well. Followed up with DC nurse. It appears that medications were called in yesterday. Will await call back from [facility]. CM will continue to follow and will assist as needed with dc plans/needs ENTERED DATE: 02/19/21 13:40 CT COMMENT TYPE: Discharge Planning REVIEWER: Zarina Pollock PATIENT DC HOME TODAY WITH HIS WALKER IN HAND, [facility] START CARE TOMORROW HIS FAMILY WILL BE HIS PAPER SLITTER HOME. [facility] WILL BE DELIVERING THE REST OF THAT PATIENTS DME TO HIS HOME. CM TO FOLLOW NEEDED ENTERED DATE: 02/18/21 11:47 CT COMMENT TYPE: Discharge Planning REVIEWER: Zarina Pollock I HAVE GIVEN THE PATIENT THE INFO TO SET UP SCAT AND EXPLAINED IT TO HIM ENTERED DATE: 02/18/21 11:29 CT COMMENT TYPE: Discharge Planning REVIEWER: Zarina Pollock ANTICIPATE DISCHARGE TOMORROW, I HAVE SPOKE WITH TARIQ GAYTAN WITH [facility] AT [phone]. I TOLD HER THAT WE PLANNED ON DISCHARGING TOMORROW SHE STATED THAT THE NURSE WHO WILL EVALUATE HIM SHOULD BE ABLE TO SEE HIM THE FIRST PART OF NEXT WEEK. HE HAS THE GOOD YADIEL, BUT NOT THE ONE THAT WILL GIVE HIM MEALS ON WHEELS. THEY CAN APPLY FOR THAT AFTER HIS EVALUATION. I HAVE SENT A REFERRAL OVER TO [facility] TO START CARE ON MONDAY. I HAVE SENT DME ORDER FOR [employer] FOR A ROLLATOR, GRAB BARS, BSC, TUB BENCH. THEY WILL DELIVER THE ROLLATOR TO THE HOSPITAL AND EVERYTHING ELSE TO HIS HOME. HE STATED THAT HE HAS ALOT OF FAMILY WHO LIVES ON THE SAME ROAD WITH HIM. EITHER HIS NIECE OR HIS NEPHEW WILL BE HIS PAPER SLITTER HOME. CM WILL ASSIST WITH ANY OTHER NEEDS NEEDED. HE WILL NEED TO CALL THE SCAT BUS TO ARRANGE TRANSPORTATION IF HE IS UNABLE TO GET FAMILY TO DRIVE HIM. ENTERED DATE: 02/10/21 8:15 CT COMMENT TYPE: Discharge Planning REVIEWER: Flora Valdes CM CONTINUES TO FOLLOW PATIENT. HE WAS RECENTLY IN ICU, HE IS NOW BACK ON THE MEDICAL SURGICAL UNIT. WBC IS ELEVATED AND HE DID PARTICIPATE WITH PHYSICAL THERAPY YESTERDAY BUT THEY STATED HE WAS LETHARGIC. HE COMPLAINES OF ABDOMINAL PAIN. CT IMPRESSION STATES POSSIBLE SMALL BOWEL OBSTRUCTION WITH ILEUS. 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 CM WILL CALL [facility] AND HOME HEALTH WHEN PATIENT IS MEDICALLY STABLE AND CLOSE TO DISCHARGE. ENTERED DATE: 02/03/21 14:41 CT COMMENT TYPE: Discharge Planning REVIEWER: Flora Valdes CM SPOKE WITH TARIQ GAYTAN RN CM AT [facility]. CM WILL CONTACT HER WHEN PATIENT IS READY FOR DISCHARGE AND SHE WILL MEET HIM AT HIS HOUSE AND GET HIM SET UP WITH SERVICES, AN AID, MEALS ON WHEELS, ETC. I WILL ALSO GET PATIENT SET UP WITH HOME HEALTH, WALKER AND BEDSIDE COMMODE FOR HOME. HE IS SCHEDULED TO HAVE A PROCEDURE TOMORROW. CM TO FOLLOW AND ASSIST NEEDED. ENTERED DATE: 01/21/21 14:00 CT COMMENT TYPE: Discharge Planning REVIEWER: Flora Valdes SPEECH THERAPY CONSULT ORDERED. I RECEIVED A VOICE MAIL FROM [facility] AND THEY STATED PATIENT SHOULD QUALIFY FOR 14 HOURS OF INHOME CARE PER WEEK. I WILL FOLLOW UP WITH THEM AND SEE WHAT PROGRAMS HE MAY QUALIFY FOR THROUGH THEM WITH HIS MEDICAID. DISCHARGE ORDER ON HOLD, PATIENT NEEDS TO BE ABLE TO GET IN AND OUT OF BED AND DO FOR HIMSELF WITHOUT ASSISTANCE IN ORDER TO SAFELY RETURN HOME PER ORTHO. CM TO FOLLOW AND ASSIST NEEDED. ENTERED DATE: 01/01/21 11:04 CT COMMENT TYPE: Discharge Planning REVIEWER: Flora Valdes CM SPOKE WITH PATIENT THIS MORNING ABOUT DISCHARGE PLANNING. HE IS VERY SHORT OF BREATH, HE IS ON OXYGEN VIA NASAL CANNULA. HE SAID HIS PLAN IS TO RETURN TO HOME WHEN HE IS ABLE TO STAND. I TALKED WITH HIM ABOUT HIS NEED FOR DIALYSIS AND IT WILL BE THREE TIMES PER WEEK. HE STATES GETTING TO AND FROM DIALYSIS WILL BE A PROBLEM. HE HAS MEDICAID, I WILL CALL AND SEE IF HE CAN GET SET UP WITH [facility] FOR TRANSPORT TO AND FROM DIALYSIS. I ALSO TALKED WITH HIM ABOUT THE IMPORTANCE OF WORKING WITH PHYSICAL THERAPY BECUASE IF HE IS NOT SAFE TO RETURN HOME HE WILL NEED TO GO TO A DETENTION. HE STATES HE WILL BE ABLE TO GO HOME ONCE HE IS WELL. CM WILL FOLLOW AND ASSIST NEEDED. DCP REVIEW SUMMARY ANTICIPATED D/C DATE: EXPECTED LOS : 0 CASE STATUS: DCP Initiated INITIAL REVIEW: 12/29/2020 INITIAL REVIEWER: Flora Valdes FINAL DISCHARGE DISPOSITION: : FINAL REVIEWER: FINAL REVIEW DATE: DCP [employer] Questions & Answers QUESTION: ANSWER : PATIENT: BILL MCKAY ENCOUNTER: [id number] MEDICAL RECORD#: [id number] ADMISSION DATE: 11/29/2020 DISCHARGE DATE: 02/19/2021 ATTENDING MD: KENNY MCKNIGHT : AGE: 55 MARITAL STATUS: S DC PLAN ID: [id number] FACILITY: [facility] PRINTED ON: 02/20/21 11:32 CT All edits/amendments must be made on the electronic document DICTATION DATE: 02/20/211131 OFFICE LEAD: PAULINE 02/20/211131 RPT#: [id number] DC DATE:02/19/21 STATUS: DIS IN [facility] [address] [place] [address] END OF REPORT
--- NOTE | 2021-02-22 14:50 | MORECARE ---
CASE MANAGEMENT DISCHARGE SUMMARY PATIENT: BILL MCKAY UNIT: [id number] ADM DATE: 11/29/20 AGE: 55 : 63 SEX: M ROOM/BED: D.2224 AUTHOR: RAÚL,DOC PHYSICIAN: REFERRING PHYSICIAN: KENNY MARIE MD DATE OF SERVICE: 02/22/21 Case Management Discharge Planning Summary COMMENTS ENTERED DATE: 02/20/21 11:30 CT COMMENT TYPE: Discharge Planning REVIEWER: Doug Evans Received phone call from [facility], Lexie Borges. Lexie stated that the patient's medications were not called in to (Zyvox, Gabapentin, and Retacrit). Lexie stated that [facility] cannot fill Retacrit and she believes that a prior auth is required. Lexie stated that the patient will pay out of pocket for gabapentin because he has Medicaid. CM informed Lexie that follow up with Dr. Marie through the patient's PCP office on Monday would likely be the best course of action for Retacrit communication. This CM will notify weekday CM staff about retacrit as well. Followed up with DC nurse. It appears that medications were called in yesterday. Will await call back from [facility]. 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 [facility] WILL BE DELIVERING THE REST OF THAT PATIENTS DME TO HIS HOME. CM TO FOLLOW NEEDED ENTERED DATE: 02/18/21 11:47 CT COMMENT TYPE: Discharge Planning REVIEWER: Zarina Pollock I HAVE GIVEN THE PATIENT THE INFO TO SET UP SCAT AND EXPLAINED IT TO HIM ENTERED DATE: 02/18/21 11:29 CT COMMENT TYPE: Discharge Planning REVIEWER: Zarina Pollock ANTICIPATE DISCHARGE TOMORROW, I HAVE SPOKE WITH TARIQ GAYTAN WITH [facility] AT [phone]. I TOLD HER THAT WE PLANNED ON DISCHARGING TOMORROW SHE STATED THAT THE NURSE WHO WILL EVALUATE HIM SHOULD BE ABLE TO SEE HIM THE FIRST PART OF NEXT WEEK. HE HAS THE GOOD YADIEL, BUT NOT THE ONE THAT WILL GIVE HIM MEALS ON WHEELS. THEY CAN APPLY FOR THAT AFTER HIS EVALUATION. I HAVE SENT A REFERRAL OVER TO [facility] TO START CARE ON MONDAY. I HAVE SENT DME ORDER FOR [email or web address] FOR A ROLLATOR, GRAB BARS, BSC, TUB BENCH. THEY WILL DELIVER THE ROLLATOR TO THE HOSPITAL AND EVERYTHING ELSE TO HIS HOME. HE STATED THAT HE HAS ALOT OF FAMILY WHO LIVES ON THE SAME ROAD WITH HIM. EITHER HIS NIECE OR HIS NEPHEW WILL BE HIS DAIRY WORKER HOME. CM WILL ASSIST WITH ANY OTHER NEEDS NEEDED. HE WILL NEED TO CALL THE SCAT BUS TO ARRANGE TRANSPORTATION IF HE IS UNABLE TO GET FAMILY TO DRIVE HIM. ENTERED DATE: 02/10/21 8:15 CT COMMENT TYPE: Discharge Planning REVIEWER: Flora Valdes CM CONTINUES TO FOLLOW PATIENT. HE WAS RECENTLY IN ICU, HE IS NOW BACK ON THE MEDICAL SURGICAL UNIT. WBC IS ELEVATED AND HE DID PARTICIPATE WITH PHYSICAL THERAPY YESTERDAY BUT THEY STATED HE WAS LETHARGIC. HE COMPLAINES OF ABDOMINAL PAIN. CT IMPRESSION STATES POSSIBLE SMALL BOWEL OBSTRUCTION WITH ILEUS. DC PLAN IS STILL HOME WITH HOME HEALTH AND [facility] WILL ALSO SEE HIM AT DISCHARGE AND GET HIM SIGNED UP FOR MEALS ON WHEELS AND 15 HOURS OF PATIENT FOOD AIDE PER WEEK AND ANY OTHER SERVICES HE MAY QUALIFY FOR. CM WILL CALL [facility] AND HOME HEALTH WHEN PATIENT IS MEDICALLY STABLE AND CLOSE TO DISCHARGE. ENTERED DATE: 02/03/21 14:41 CT COMMENT TYPE: Discharge Planning REVIEWER: Flora Valdes CM SPOKE WITH TARIQ GAYTAN RN CM AT [facility]. CM WILL CONTACT HER WHEN PATIENT IS READY FOR DISCHARGE AND SHE WILL MEET HIM AT HIS HOUSE AND GET HIM SET UP WITH SERVICES, AN AID, MEALS ON WHEELS, ETC. I WILL ALSO GET PATIENT SET UP WITH HOME HEALTH, WALKER AND BEDSIDE COMMODE FOR HOME. HE IS SCHEDULED TO HAVE A PROCEDURE TOMORROW. CM TO FOLLOW AND ASSIST NEEDED. ENTERED DATE: 01/21/21 14:00 CT COMMENT TYPE: Discharge Planning REVIEWER: Flora Valdes SPEECH THERAPY CONSULT ORDERED. I RECEIVED A VOICE MAIL FROM [facility] AND THEY STATED PATIENT SHOULD QUALIFY FOR 14 HOURS OF INHOME CARE PER WEEK. I WILL FOLLOW UP WITH THEM AND SEE WHAT PROGRAMS HE MAY QUALIFY FOR THROUGH THEM WITH HIS MEDICAID. DISCHARGE ORDER ON HOLD, PATIENT NEEDS TO BE ABLE TO GET IN AND OUT OF BED AND DO FOR HIMSELF WITHOUT ASSISTANCE IN ORDER TO SAFELY RETURN HOME PER ORTHO. CM TO FOLLOW AND ASSIST NEEDED. ENTERED DATE: 01/01/21 11:04 CT COMMENT TYPE: Discharge Planning REVIEWER: Flora Valdes CM SPOKE WITH PATIENT THIS MORNING ABOUT DISCHARGE PLANNING. HE IS VERY SHORT OF BREATH, HE IS ON OXYGEN VIA NASAL CANNULA. HE SAID HIS PLAN IS TO RETURN TO HOME WHEN HE IS ABLE TO STAND. I TALKED WITH HIM ABOUT HIS NEED FOR DIALYSIS AND IT WILL BE THREE TIMES PER WEEK. HE STATES GETTING TO AND FROM DIALYSIS WILL BE A PROBLEM. HE HAS MEDICAID, I WILL CALL AND SEE IF HE CAN GET SET UP WITH [facility] FOR TRANSPORT TO AND FROM DIALYSIS. I ALSO TALKED WITH HIM ABOUT THE IMPORTANCE OF WORKING WITH PHYSICAL THERAPY BECUASE IF HE IS NOT SAFE TO RETURN HOME HE WILL NEED TO GO TO A CARE HOME. HE STATES HE WILL BE ABLE TO GO HOME ONCE HE IS WELL. CM WILL FOLLOW AND ASSIST NEEDED. DCP REVIEW SUMMARY ANTICIPATED D/C DATE: EXPECTED LOS : 0 CASE STATUS: DCP Initiated INITIAL REVIEW: 12/29/2020 INITIAL REVIEWER: Flora Valdes FINAL DISCHARGE DISPOSITION: : FINAL REVIEWER: FINAL REVIEW DATE: DCP [facility] Questions & Answers QUESTION: ANSWER : PATIENT: BILL MCKAY ENCOUNTER: [id number] MEDICAL RECORD#: [id number] ADMISSION DATE: 11/29/2020 DISCHARGE DATE: 02/19/2021 ATTENDING MD: KENNY MCKNIGHT : AGE: 55 MARITAL STATUS: S DC PLAN ID: [id number] FACILITY: [facility] PRINTED ON: 02/22/21 14:50 CT All edits/amendments must be made on the electronic document DICTATION DATE: 02/22/211449 BARRER AND TACKER: PAULINE 02/22/211449 RPT#: [id number] DC DATE:02/19/21 STATUS: DIS IN [facility] [address] [place] [address] END OF REPORT
== END 2021-02-19 14:12 | disposition home health service (06) | DRG 463 ==
LOC: D.ER 11:14 → D.CVICU 18:16 → D.MS 18:16 → D.CVICU 02-05 01:41 → D.ICU 02-06 12:12 → D.MS 02-07 12:49
PROVIDERS: Anesthesiology; Emergency Medicine; Family Medicine; Internal Medicine; Internal Medicine Gastroenterology; Internal Medicine Nephrology; Internal Medicine Pulmonary Disease; Orthopaedic Surgery; ADMIT Family Medicine; ATTEND Family Medicine
PROC: 0QS604Z Reposition Right Upper Femur with Internal Fixation Device, Open Approach (ICD-10-PCS; principal; 2020-11-29 14:21)
PROC: 05HN33Z Insertion of Infusion Device into Left Internal Jugular Vein, Percutaneous Approach (ICD-10-PCS; 2020-12-28)
PROC: 0KBQ0ZZ Excision of Right Upper Leg Muscle, Open Approach (ICD-10-PCS; 2021-01-07)
PROC: 2W1NX6Z Compression of Right Upper Leg using Pressure Dressing (ICD-10-PCS; 2021-01-07)
PROC: 0KBQ0ZZ Excision of Right Upper Leg Muscle, Open Approach (ICD-10-PCS; 2021-01-11)
PROC: 0KBQ0ZZ Excision of Right Upper Leg Muscle, Open Approach (ICD-10-PCS; 2021-01-14)
PROC: 0QW804Z Revision of Internal Fixation Device in Right Femoral Shaft, Open Approach (ICD-10-PCS; 2021-02-04)
PROC: 0JBC0ZZ Excision of Pelvic Region Subcutaneous Tissue and Fascia, Open Approach (ICD-10-PCS; 2021-02-04 12:30)
PROC: 5A1945Z Respiratory Ventilation, 24-96 Consecutive Hours (ICD-10-PCS; 2021-02-05)
PROC: 0BH17EZ Insertion of Endotracheal Airway into Trachea, Via Natural or Artificial Opening (ICD-10-PCS; 2021-02-05)
PROC: 05PYX3Z Removal of Infusion Device from Upper Vein, External Approach (ICD-10-PCS; 2021-02-19)
DX: S72.21XA Displaced subtrochanteric fracture of right femur, initial encounter for closed fracture (principal); K85.20 Alcohol induced acute pancreatitis without necrosis or infection; N17.0 Acute kidney failure with tubular necrosis; G93.41 Metabolic encephalopathy; J96.01 Acute respiratory failure with hypoxia; J18.9 Pneumonia, unspecified organism; M62.82 Rhabdomyolysis; D62 Acute posthemorrhagic anemia; T81.31XA Disruption of external operation (surgical) wound, not elsewhere classified, initial encounter; L97.429 Non-pressure chronic ulcer of left heel and midfoot with unspecified severity; L97.419 Non-pressure chronic ulcer of right heel and midfoot with unspecified severity; N39.0 Urinary tract infection, site not specified; I48.92 Unspecified atrial flutter; I10 Essential (primary) hypertension; I48.91 Unspecified atrial fibrillation; K72.10 Chronic hepatic failure without coma; W19.XXXA Unspecified fall, initial encounter; I95.9 Hypotension, unspecified; R60.0 Localized edema; D64.9 Anemia, unspecified; R53.81 Other malaise; K21.9 Gastro-esophageal reflux disease without esophagitis